=== PATIENT | male | born 1995 | race Caucasian/White ===

== ENCOUNTER → 2016-12-12 | Outpatient (CLI) | payer MEDICAID ==
[~2016-12-12] MED LIST: /MOXI40TA PO; ALBU17IN INH; AVEL1TAB PO; CLAR1TAB2 PEG; FLAG500T PO; FLUTISP; MUPI2OI EXT; TYLE325T5 PO; VENTAER INH; cipro PO; flagyl PO; synthroid OR
[2016-12-12 10:54] LABS: ALBUMIN 3.3 GM/DL (3.2-5.2); ALBUMIN/GLOBULIN RATIO 1.18 (1.00-1.93); ALKALINE PHOSPHATASE 89 U/L (45-117); ALT/SGPT 26 U/L (12-78); ANION GAP 8 MEQ/L (8-16); AST/SGOT 19 U/L (15-37); BILIRUBIN,TOTAL 0.5 MG/DL (0.2-1.0); BLOOD UREA NITROGEN 17 MG/DL (7-18); CALCIUM LEVEL 8.2 MG/DL (8.5-10.1); CARBON DIOXIDE LEVEL 27 MEQ/L (21-32); CHLORIDE LEVEL 107 MEQ/L (98-107); CREATININE FOR GFR 0.88 MG/DL (0.70-1.30); GLOMERULAR FILTRATION RATE > 60.0 (>60); GLUCOSE, FASTING 89 MG/DL (70-105); POTASSIUM SERUM 4.2 MEQ/L (3.5-5.1); SODIUM LEVEL 142 MEQ/L (136-145); TOTAL PROTEIN 6.1 GM/DL (6.4-8.2)
[2016-12-12 15:43] LABS: T UPTAKE 34 % (33-40); THYROXINE (T4) 11.7 UG/DL (4.5-12.0)
== END ==
LOC: M LAB 08:57
PROVIDERS: ATTEND Physician Assistant Medical
DX: E03.9 Hypothyroidism, unspecified (principal); E78.2 Mixed hyperlipidemia

== ENCOUNTER → 2017-02-12 | Outpatient (CLI) | payer MEDICAID ==
[2017-02-12 12:58] LABS: THYROXINE (T4) 14.6 UG/DL (4.5-12.0)
--- NOTE | 2017-02-13 05:25 | ECGEPIP ---
Stationary ECG Study [facility] Test Date: 2017-02-12 Pat Name: CHICA BENJAMIN Department: Room: - Gender: M Auto Parker: ISAC : 1995 Requested By: Bri Garnica Order Number: [id number] Reading MD: Walt Danielle Measurements Intervals [place] Rate: 85 P: 19 NM: 193 QRS: -61 QRSD: 132 T: 63 QT: 383 QTc: 458 Interpretive Statements Normal sinus rhythm with borderline first degree AV block Left anterior fascicular block and right bundle branch block Compared to prior tracing of 04/15/2014, heart rate is slower Electronically Signed On 02-13-2017 5:25:29 EDT by Walt Danielle
== END ==
LOC: M LAB 10:46
PROVIDERS: ATTEND Physician Assistant Medical
DX: E03.9 Hypothyroidism, unspecified (principal)

== ENCOUNTER → 2017-03-10 | Outpatient (CLI) | payer MEDICAID ==
[2017-03-10 11:36] LABS: THYROXINE (T4) 15.1 UG/DL (4.5-12.0)
[2017-03-11 08:13] LABS: T3 RESIN UPTAKE 31 % (24-39)
== END ==
LOC: M LAB 10:11
PROVIDERS: ATTEND Physician Assistant Medical
DX: E03.9 Hypothyroidism, unspecified (principal)

== ENCOUNTER → 2017-04-07 | Outpatient (CLI) | payer MEDICAID ==
[2017-04-07 13:39] LABS: FREE T4 1.17 NG/DL (0.76-1.46)
== END ==
LOC: M LAB 12:25
PROVIDERS: ATTEND Physician Assistant Medical
DX: E03.9 Hypothyroidism, unspecified (principal)

== ENCOUNTER → 2017-04-09 | Outpatient (CLI) | payer MEDICAID ==
[2017-04-09 10:37] LABS: BASO % 1.1 % (0.0-1.0); EOS % 1.1 % (0.0-3.0); LYMPH # 1.1 K/mm3 (1.5-6.5); LYMPH % 25.5 % (24.0-44.0); MEAN CORPUSCULAR HEMOGLOBIN 30.2 pg (27.0-33.0); MEAN CORPUSCULAR HGB CONC 34.1 g/dl (32.0-36.5); MEAN CORPUSCULAR VOLUME 88.7 fl (80.0-96.0); MONO # 0.3 K/mm3 (0.0-0.8); MONO % 6.5 % (0.0-5.0); NEUTROPHILS # 2.7 K/mm3 (1.8-7.7); NEUTROPHILS % 64.4 % (36.0-66.0); RED CELL DISTRIBUTION WIDTH 13.5 % (11.5-14.5); WHITE BLOOD COUNT 4.2 K/mm3 (4.0-10.0)
--- NOTE | 2017-04-09 10:52 | REP ---
Chest two views HISTORY: Chest pain Comparison: 04/15/2014 Minimal peribronchial cuffing is present. The heart is normal in size. The pulmonary vasculature is normal in appearance. The bony structure is intact. IMPRESSION: There is minimal peribronchial cuffing consistent with asthma or bronchitis. Signed by Benny Lund MD 04/09/2017 10:44 A
[2017-04-09 11:01] LABS: ALBUMIN 3.2 GM/DL (3.2-5.2); ALBUMIN/GLOBULIN RATIO 1.07 (1.00-1.93); ALKALINE PHOSPHATASE 93 U/L (45-117); ALT/SGPT 21 U/L (12-78); ANION GAP 6 MEQ/L (8-16); AST/SGOT 19 U/L (15-37); BILIRUBIN,TOTAL 0.5 MG/DL (0.2-1.0); BLOOD UREA NITROGEN 14 MG/DL (7-18); CALCIUM LEVEL 8.3 MG/DL (8.5-10.1); CARBON DIOXIDE LEVEL 27 MEQ/L (21-32); CHLORIDE LEVEL 109 MEQ/L (98-107); CHOLESTEROL LEVEL 223 MG/DL (<200); CREATININE FOR GFR 0.92 MG/DL (0.70-1.30); GLOMERULAR FILTRATION RATE > 60.0 (>60); GLUCOSE, FASTING 95 MG/DL (70-105); POTASSIUM SERUM 4.1 MEQ/L (3.5-5.1); SODIUM LEVEL 142 MEQ/L (136-145); TOTAL PROTEIN 6.2 GM/DL (6.4-8.2); TRIGLYCERIDES LEVEL 101 MG/DL (<150)
--- NOTE | 2017-04-10 14:30 | ECGEPIP ---
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
== END ==
LOC: M LAB 10:04
PROVIDERS: ATTEND Physician Assistant Medical
DX: I44.0 Atrioventricular block, first degree (principal); I45.2 Bifascicular block

== ENCOUNTER 2017-04-27 14:10 | Emergency (ER) | payer MEDICAID ==
[~2017-04-27] VITALS: Ht 144.8 cm; Wt 73.8 kg
[2017-04-27] MEDS ORDERED: ASPIRIN 81 MG CHEW TABLET PO ONE (14:45)
[2017-04-27 15:35] LABS: BASO # 0.1 K/mm3 (0.0-0.2); BASO % 1.4 % (0.0-1.0); EOS % 0.9 % (0.0-3.0); LARGE UNSTAINED CELL # 0.1 K/mm3 (0.0-0.4); LARGE UNSTAINED CELL % 1.4 % (0.0-4.0); LYMPH % 19.4 % (24.0-44.0); MEAN CORPUSCULAR HGB CONC 34.2 g/dl (32.0-36.5); MEAN CORPUSCULAR VOLUME 87.6 fl (80.0-96.0); MONO # 0.4 K/mm3 (0.0-0.8); MONO % 7.2 % (0.0-5.0); NEUTROPHILS # 3.5 K/mm3 (1.8-7.7); NEUTROPHILS % 69.8 % (36.0-66.0); PLATELET COUNT, AUTOMATED 221 k/mm3 (150-450); RED CELL DISTRIBUTION WIDTH 13.8 % (11.5-14.5); WHITE BLOOD COUNT 4.9 K/mm3 (4.0-10.0)
[2017-04-27 16:03] LABS: ALBUMIN 3.2 GM/DL (3.2-5.2); ALBUMIN/GLOBULIN RATIO 0.97 (1.00-1.93); ALKALINE PHOSPHATASE 102 U/L (45-117); ALT/SGPT 20 U/L (12-78); ANION GAP 8 MEQ/L (8-16); AST/SGOT 18 U/L (15-37); BILIRUBIN,DIRECT < 0.1 MG/DL (0.0-0.2); BILIRUBIN,TOTAL 0.4 MG/DL (0.2-1.0); BLOOD UREA NITROGEN 14 MG/DL (7-18); CALCIUM LEVEL 8.3 MG/DL (8.5-10.1); CARBON DIOXIDE LEVEL 26 MEQ/L (21-32); CHLORIDE LEVEL 109 MEQ/L (98-107); CREATININE FOR GFR 1.01 MG/DL (0.70-1.30); GLOMERULAR FILTRATION RATE > 60.0 (>60); GLUCOSE, FASTING 85 MG/DL (70-105); POTASSIUM SERUM 4.1 MEQ/L (3.5-5.1); SODIUM LEVEL 143 MEQ/L (136-145); TOTAL PROTEIN 6.5 GM/DL (6.4-8.2)
[2017-04-27 16:57] VITALS: BP 137/80
[2017-05-09] MEDS ORDERED: PROA1AER INH (13:42)
[2017-05-09] MEDS ORDERED: LEVO137T2 PO (13:42)
== END 2017-04-27 19:16 | disposition home or self-care (01) ==
LOC: M ED 14:40
DX: R55 Syncope and collapse (principal); R07.9 Chest pain, unspecified; J45.909 Unspecified asthma, uncomplicated; E03.9 Hypothyroidism, unspecified; Q90.9 Down syndrome, unspecified; Z79.899 Other long term (current) drug therapy

== ENCOUNTER → 2017-05-09 | Outpatient (CLI) | payer MEDICAID ==
[~2017-05-09] MED LIST changes: +LEVO137T2 PO; +PROA1AER INH
== END ==
LOC: M LAB 11:55
PROVIDERS: ATTEND Physician Assistant Medical
DX: E03.9 Hypothyroidism, unspecified (principal)

== ENCOUNTER 2017-05-22 21:05 | Emergency (ER) | payer MEDICAID ==
[~2017-05-22] VITALS: Ht 160 cm; Wt 73.6 kg
[~2017-05-22 21:05] MED LIST changes: -AVEL1TAB PO; +AVEL1TAB3 PO; -PROA1AER INH; +PROAAER10 INH
[2017-05-22 21:25] VITALS: BP 140/72
[2017-05-22 21:57] LABS: BASO # 0.1 K/mm3 (0.0-0.2); BASO % 1.5 % (0.0-1.0); EOS % 0.5 % (0.0-3.0); LARGE UNSTAINED CELL # 0.1 K/mm3 (0.0-0.4); LARGE UNSTAINED CELL % 1.3 % (0.0-4.0); LYMPH # 1.3 K/mm3 (1.5-6.5); LYMPH % 17.8 % (24.0-44.0); MEAN CORPUSCULAR HEMOGLOBIN 29.6 pg (27.0-33.0); MEAN CORPUSCULAR HGB CONC 33.6 g/dl (32.0-36.5); MEAN CORPUSCULAR VOLUME 88.2 fl (80.0-96.0); MONO # 0.4 K/mm3 (0.0-0.8); MONO % 5.6 % (0.0-5.0); NEUTROPHILS # 5.4 K/mm3 (1.8-7.7); NEUTROPHILS % 73.2 % (36.0-66.0); PLATELET COUNT, AUTOMATED 259 k/mm3 (150-450); RED CELL DISTRIBUTION WIDTH 13.4 % (11.5-14.5); WHITE BLOOD COUNT 7.4 K/mm3 (4.0-10.0)
[2017-05-22] MEDS ORDERED: ALL10TAB27 PO (22:05)
[2017-05-22] MEDS ORDERED: ATOR1TAB21 PO (22:05)
[2017-05-22 22:09] LABS: INR 1.01
[2017-05-22 22:21] LABS: ANION GAP 5 MEQ/L (8-16); BLOOD UREA NITROGEN 15 MG/DL (7-18); CALCIUM LEVEL 8.5 MG/DL (8.5-10.1); CARBON DIOXIDE LEVEL 27 MEQ/L (21-32); CHLORIDE LEVEL 111 MEQ/L (98-107); GLOMERULAR FILTRATION RATE > 60.0 (>60); GLUCOSE, FASTING 115 MG/DL (70-105); POTASSIUM SERUM 3.8 MEQ/L (3.5-5.1); SODIUM LEVEL 143 MEQ/L (136-145)
[2017-05-22] MEDS ORDERED: ISOVUE-370 76% 100ML VIAL (Q9967) As Ordered ONE (22:38)
--- NOTE | 2017-05-22 23:20 | REPUSA ---
CT angiogram of the chest Clinical statement: Chest pain and shortness of breath. Technique: Multiple axial CT images were obtained from the thoracic inlet through the upper abdomen a fter a bolus administration of nonionic intravenous contrast. Coronal and sagittal reconstructions we re also obtained. Comparison: None. Findings: The pulmonary arteries are well-opacified with contrast, with no intraluminal filling defec ts to suggest embolism. The thoracic aorta is unremarkable. Thyroid gland is within normal limits. Th ere is no thoracic lymphadenopathy. There are no pericardial or pleural effusions. The lungs are erin r. Limited imaging of the upper abdomen is unremarkable. There are no suspicious osseous lesions. Impression: Unremarkable CT examination of the chest. No evidence of pulmonary embolism.
--- NOTE | 2017-05-23 07:57 | REP ---
Clinical: Chest pain . Comparison: 04/09/2017 . Technique: PA and lateral. Findings: The mediastinum and cardiac silhouette are normal. The lung vidales are clear and without acute consolidation, effusion, or pneumothorax. The skeletal structures are intact and normal. Impression: 1. No acute cardiopulmonary process. Signed by Juan J Resendiz MD 05/23/2017 07:49 A
--- NOTE | 2017-05-23 20:50 | ECGEPIP ---
Stationary ECG Study [facility] - ED Test Date: 2017-05-22 Pat Name: CHICA BENJAMIN Department: Room: - Gender: M Regional Truck Driver: abigail : 1995 Requested By: FRANKY DONNELLY Order Number: [id number] Reading MD: Juany Osborn Measurements Intervals [place] Rate: 99 P: 12 NC: 215 QRS: -53 QRSD: 145 T: 46 QT: 377 QTc: 484 Interpretive Statements SINUS RHYTHM WITH FIRST DEGREE AV BLOCK RIGHT BUNDLE BRANCH BLOCK LEFT ANTERIOR FASCICULAR BLOCK POSSIBLE LEFT VENTRICULAR HYPERTROPHY SIMILAR 04/27/17 Electronically Signed On 05-23-2017 20:50:21 EDT by Juany Osborn
== END 2017-05-23 00:13 | disposition home or self-care (01) ==
LOC: M ED 21:05 → EDBD 21:05 → M ED 05-23 00:13
DX: R07.89 Other chest pain (principal); R00.0 Tachycardia, unspecified; I45.10 Unspecified right bundle-branch block; I44.0 Atrioventricular block, first degree; I44.4 Left anterior fascicular block; J45.909 Unspecified asthma, uncomplicated; E03.9 Hypothyroidism, unspecified; Q90.9 Down syndrome, unspecified; Z79.899 Other long term (current) drug therapy
CPT/HCPCS: 71020; 71275; 80048; 82550; 82553; 85025; 85610; 85730; 93005; 99284; Q9967

== ENCOUNTER → 2017-05-28 | Day surgery (SDC) | payer MEDICAID ==
[~2017-05-28] VITALS: Ht 162.6 cm; Wt 73.0 kg
[~2017-05-28] MED LIST changes: +ALL10TAB27 PO; +ATOR1TAB21 PO; +LIDOCAINE 1% MDV 20ML VIAL As Ordered ONE; +LIDOCAINE 1% SDV INJ 30 ML VIAL As Ordered ONE; +LIDOCAINE 2% INJ 100 MG/5 ML SDV (FOR ANES.) As Ordered ONE; +LR 1,000 ML IV ONE; +MIDAZOLAM INJ 2 MG/2 ML VIAL (J2250) As Ordered ONE; +PROPOFOL 200 MG/20 ML VIAL As Ordered ONE; +VANCOMYCIN HCL 1,000 MG, VIAL MATE ADAPTER 1 EACH in D5W 250 ML IV ONE; +fentaNYL 100 MCG/2 ML INJECTION (J3010) As Ordered ONE
[2017-05-28 18:16] VITALS: BP 118/59
--- NOTE | 2017-05-29 07:38 | RO ---
DATE OF PROCEDURE: 05/28/2017 PREOPERATIVE DIAGNOSIS: Unexplained syncope. POSTOPERATIVE DIAGNOSIS: Unexplained syncope. FINDINGS: Unexplained syncope. PROCEDURE PERFORMED: Implantation of Medtronic LINQ implantable lead recorder. SURGEON: Josh Sauceda MD AUTISM MOTOR SPECIALIST: None. ANESTHESIA: Lidocaine 1% local/monitored anesthetic care. SPECIMENS: None. ESTIMATED BLOOD LOSS: Less than 3 mL. No blood products replaced. DRAINS: None. COMPLICATIONS: None. PROCEDURE DESCRIPTION: The patient was prepped and draped over the sternum and left anterior chest. Lidocaine 1% was used as a local anesthetic. An incision slightly less than 1 cm was made with 15 scalpel blade, approximately 1-inch lateral to the left parasternal border and roughly at the level of the patient's left nipple. The insertion tool with loop recorder guide portion was placed into the incision and advanced approximately parallel to the skin the subcutaneous fat layer. The insertion tool was rotated 180 degrees. It was placed in a direction going caudal- left lateral. After rotating the insertion tool 180 degrees, the loop recorder was advanced using the plunger to place it into the subcutaneous fat. The plunger was then removed and then insertion guide was removed leaving the loop recorder in place. Next, a single deep stitch was placed consisting of #2-0 Vicryl. The skin was then approximated using a #4-0 Biosyn suture placed subcutaneously with the free ends coming out at the level of the skin on both sides. This was used not for strength of the incision, but simply to approximate the incision line. Next, three layers of DERMABOND was applied. The free ends of the Biosyn suture were snipped at the level of the skin. The patient tolerated the procedure well without any immediate complications. The implantable loop recorder implanted was a Medtronic Reveal LINQ, model #LNQ11 with serial number [id number]. The initial R waves measured in the OR were 1.43 mV.
== END | disposition home or self-care (01) ==
LOC: M SDC 14:56
PROVIDERS: ATTEND Internal Medicine Cardiovascular Disease
DX: R55 Syncope and collapse (principal); Q90.9 Down syndrome, unspecified; I45.2 Bifascicular block; R94.31 Abnormal electrocardiogram [ECG] [EKG]; Q21.1 Atrial septal defect; R01.1 Cardiac murmur, unspecified; R07.2 Precordial pain; G47.33 Obstructive sleep apnea (adult) (pediatric); E03.9 Hypothyroidism, unspecified; J45.909 Unspecified asthma, uncomplicated; H91.8X3 Other specified hearing loss, bilateral; T88.59XD Other complications of anesthesia, subsequent encounter; R47.02 Dysphasia; R29.898 Other symptoms and signs involving the musculoskeletal system; R21 Rash and other nonspecific skin eruption; R06.83 Snoring; Z88.0 Allergy status to penicillin; Z88.1 Allergy status to other antibiotic agents; Z88.6 Allergy status to analgesic agent; Z88.8 Allergy status to other drugs, medicaments and biological substances; Z91.018 Allergy to other foods; Z79.899 Other long term (current) drug therapy; Z86.14 Personal history of Methicillin resistant Staphylococcus aureus infection
CPT/HCPCS: 33282; C1764; J2250; J3010; J3370

== ENCOUNTER 2017-07-11 22:57 | Emergency (ER) | payer MEDICAID ==
[~2017-07-11] VITALS: Ht 160 cm; Wt 67.3 kg
[~2017-07-11 22:57] MED LIST changes: -LIDOCAINE 1% MDV 20ML VIAL As Ordered ONE; -LIDOCAINE 1% SDV INJ 30 ML VIAL As Ordered ONE; -LIDOCAINE 2% INJ 100 MG/5 ML SDV (FOR ANES.) As Ordered ONE; -LR 1,000 ML IV ONE; -MIDAZOLAM INJ 2 MG/2 ML VIAL (J2250) As Ordered ONE; -PROPOFOL 200 MG/20 ML VIAL As Ordered ONE; -VANCOMYCIN HCL 1,000 MG, VIAL MATE ADAPTER 1 EACH in D5W 250 ML IV ONE; -fentaNYL 100 MCG/2 ML INJECTION (J3010) As Ordered ONE
[2017-07-11 23:21] VITALS: BP 143/63
[2017-07-11 23:50] LABS: BASO # 0.1 K/mm3 (0.0-0.2); BASO % 1.1 % (0.0-1.0); EOS % 0.7 % (0.0-3.0); LARGE UNSTAINED CELL # 0.1 K/mm3 (0.0-0.4); LARGE UNSTAINED CELL % 1.5 % (0.0-4.0); LYMPH # 1.4 K/mm3 (1.5-6.5); LYMPH % 26.3 % (24.0-44.0); MEAN CORPUSCULAR HEMOGLOBIN 29.2 pg (27.0-33.0); MEAN CORPUSCULAR HGB CONC 33.2 g/dl (32.0-36.5); MEAN CORPUSCULAR VOLUME 87.9 fl (80.0-96.0); MONO # 0.3 K/mm3 (0.0-0.8); MONO % 6.4 % (0.0-5.0); NEUTROPHILS # 3.2 K/mm3 (1.8-7.7); NEUTROPHILS % 63.9 % (36.0-66.0); PLATELET COUNT, AUTOMATED 354 k/mm3 (150-450); RED CELL DISTRIBUTION WIDTH 14.2 % (11.5-14.5); WHITE BLOOD COUNT 4.9 K/mm3 (4.0-10.0)
[2017-07-12 00:12] LABS: ALBUMIN 3.4 GM/DL (3.2-5.2); ALBUMIN/GLOBULIN RATIO 1.17 (1.00-1.93); ALKALINE PHOSPHATASE 96 U/L (45-117); ALT/SGPT 18 U/L (12-78); AMYLASE 41 U/L (25-115); ANION GAP 6 MEQ/L (8-16); AST/SGOT 15 U/L (15-37); BILIRUBIN,DIRECT 0.1 MG/DL (0.0-0.2); BILIRUBIN,TOTAL 0.4 MG/DL (0.2-1.0); BLOOD UREA NITROGEN 11 MG/DL (7-18); CALCIUM LEVEL 8.1 MG/DL (8.5-10.1); CARBON DIOXIDE LEVEL 26 MEQ/L (21-32); CHLORIDE LEVEL 109 MEQ/L (98-107); CREATININE FOR GFR 0.94 MG/DL (0.70-1.30); GLOMERULAR FILTRATION RATE > 60.0 (>60); GLUCOSE, FASTING 101 MG/DL (70-105); POTASSIUM SERUM 4.1 MEQ/L (3.5-5.1); SODIUM LEVEL 141 MEQ/L (136-145); TOTAL PROTEIN 6.3 GM/DL (6.4-8.2)
[2017-07-12] MEDS ORDERED: LACTULOSE 20 GM/30 ML SYRUP UD PO ONE (01:15)
--- NOTE | 2017-07-12 08:13 | REP ---
ABDOMEN, FLAT AND UPRIGHT; PA CHEST, THREE VIEWS: HISTORY: Pain. A small amount of air is present in small and large intestine. There are no air fluid levels or dilated loops of intestine. There is no pneumoperitoneum. The lungs are clear. IMPRESSION: Nonspecific bowel gas pattern. Signed by Benny Lund MD 07/12/2017 08:23 A
== END 2017-07-12 01:17 | disposition home or self-care (01) ==
LOC: EDBD 22:57 → M ED 22:57
DX: K59.00 Constipation, unspecified (principal); R11.10 Vomiting, unspecified; R01.1 Cardiac murmur, unspecified; Q90.9 Down syndrome, unspecified; J45.909 Unspecified asthma, uncomplicated; E07.9 Disorder of thyroid, unspecified; Z95.0 Presence of cardiac pacemaker; Z88.8 Allergy status to other drugs, medicaments and biological substances; Z88.1 Allergy status to other antibiotic agents; Z88.0 Allergy status to penicillin; Z91.018 Allergy to other foods; Z79.899 Other long term (current) drug therapy

== ENCOUNTER → 2017-09-05 | Outpatient (CLI) | payer MEDICAID ==
[2017-09-05 11:11] LABS: BASO % 0.6 % (0.0-1.0); EOS # 0.1 10^3/uL (0.0-0.50); EOS % 0.7 % (0.0-3.0); IMMATURE GRANULOCYTE % 0.6 % (0-0); LYMPH # 1.5 10^3/uL (1.5-6.5); LYMPH % 21.4 % (24.0-44.0); MEAN CORPUSCULAR HEMOGLOBIN 28.9 pg (27.0-33.0); MEAN CORPUSCULAR HGB CONC 33.2 g/dl (32.0-36.5); MONO # 0.6 10^3/uL (0.0-0.8); NEUTROPHILS # 4.8 10^3/uL (1.8-7.7); NEUTROPHILS % 68.7 % (36.0-66.0); PLATELET COUNT, AUTOMATED 319 10^3/uL (150-450); RED CELL DISTRIBUTION WIDTH 13.9 % (11.5-14.5)
[2017-09-05 11:33] LABS: ALBUMIN 3.4 GM/DL (3.2-5.2); ALBUMIN/GLOBULIN RATIO 1.06 (1.00-1.93); ALKALINE PHOSPHATASE 104 U/L (45-117); ALT/SGPT 19 U/L (12-78); ANION GAP 7 MEQ/L (8-16); AST/SGOT 16 U/L (15-37); BILIRUBIN,TOTAL 0.4 MG/DL (0.2-1.0); BLOOD UREA NITROGEN 19 MG/DL (7-18); CALCIUM LEVEL 8.2 MG/DL (8.5-10.1); CARBON DIOXIDE LEVEL 27 MEQ/L (21-32); CHLORIDE LEVEL 106 MEQ/L (98-107); CHOLESTEROL LEVEL 158 MG/DL (<200); CREATININE FOR GFR 0.78 MG/DL (0.70-1.30); GLOMERULAR FILTRATION RATE > 60.0 (>60); GLUCOSE, FASTING 97 MG/DL (70-105); POTASSIUM SERUM 4.3 MEQ/L (3.5-5.1); SODIUM LEVEL 140 MEQ/L (136-145); T UPTAKE 31 % (33-40); TOTAL PROTEIN 6.6 GM/DL (6.4-8.2); TRIGLYCERIDES LEVEL 89 MG/DL (<150)
== END ==
LOC: M LAB 09:55
PROVIDERS: ATTEND Physician Assistant Medical
DX: E03.9 Hypothyroidism, unspecified (principal); E78.2 Mixed hyperlipidemia

== ENCOUNTER 2018-01-22 11:36 | Day surgery (SDC) | payer MEDICAID ==
[~2018-01-22 11:36] MED LIST changes: -/MOXI40TA PO; -ALBU17IN INH; -ALL10TAB27 PO; -ATOR1TAB21 PO; -AVEL1TAB3 PO; -CLAR1TAB2 PEG; -FLAG500T PO; -FLUTISP; -LEVO137T2 PO; +LIDOCAINE 2% INJ 100 MG/5 ML SDV (FOR ANES.) As Ordered; +MIDAZOLAM INJ 2 MG/2 ML VIAL (J2250) As Ordered; -MUPI2OI EXT; -PROAAER10 INH; +PROPOFOL 200 MG/20 ML VIAL As Ordered; +ROCURONIUM BROMIDE 50 MG/5 ML VIAL As Ordered; -TYLE325T5 PO; -VENTAER INH; -cipro PO; +fentaNYL 100 MCG/2 ML INJECTION (J3010) As Ordered; -flagyl PO; -synthroid OR
[2018-01-22] MEDS ORDERED: EMLA CREAM 5GM (LIDOCAINE/PRILOCAINE) As Ordered (11:50)
[2018-01-22] MEDS ORDERED: LIDOCAINE 1% MDV 20ML VIAL SQ (12:00)
[2018-01-22] MEDS: SODIUM CHLORIDE 0.9% 1000 ML IV (12:00)
[2018-01-22] MEDS: EMLA CREAM 5GM (LIDOCAINE/PRILOCAINE) TOP (12:52)
[2018-01-22] MEDS: LR 1,000 ML IV ×2 (12:52→20:15)
[2018-01-22] MEDS ORDERED: MIDAZOLAM INJ 2 MG/2 ML VIAL (J2250) As Ordered ×2 (14:15→15:49)
[2018-01-22] MEDS ORDERED: fentaNYL 100 MCG/2 ML INJECTION (J3010) As Ordered (14:17)
[2018-01-22] MEDS: VANCOMYCIN HCL 1,000 MG, VIAL MATE ADAPTER 1 EACH in D5W 250 ML IV (14:17)
[2018-01-22] MEDS: LIDOCAINE 1% SDV INJ 30 ML VIAL As Ordered ×2 (15:19→16:00)
[2018-01-22] MEDS: ISOVUE-300 61% 50ML VIAL (Q9967) As Ordered ×3 (15:29→18:09)
[2018-01-22] MEDS ORDERED: PROPOFOL 200 MG/20 ML VIAL As Ordered ×2 (15:33→15:35)
[2018-01-22] MEDS ORDERED: LIDOCAINE 2% INJ 100 MG/5 ML SDV (FOR ANES.) As Ordered (15:35)
[2018-01-22] MEDS: MUPIROCIN 2% OINT 22 GM TUBE As Ordered (18:40)
[2018-01-22] MEDS: VANCOMYCIN 1000 MG/20 ML VIAL (J3370) As Ordered (18:56)
[2018-01-22] MEDS ORDERED: NORCO, ANEXSIA 5/325MG TABLET (HYDROcodone/ACETAMINOPHEN) PO (20:15)
[2018-01-22] MEDS ORDERED: ONDANSETRON 4MG/2ML VIAL (J2405) IV (20:15)
[2018-01-22] MEDS ORDERED: ACETAMINOPHEN TAB 650MG DOSE (2X325MG) PO (20:15)
[2018-01-22] MEDS: ASCORBIC ACID 250 MG TAB PO (20:51)
[2018-01-22] MEDS ORDERED: SLF 3 ML SYR IV (21:30)
[2018-01-22] MEDS: SLF 3 ML SYR IV (22:00)
[2018-01-23] MEDS: LEVOTHYROXINE 137MCG TABLET (0.137MG) PO (06:32)
[2018-01-23] MEDS: SLF 3 ML SYR IV (06:33)
[2018-01-23] MEDS: ASCORBIC ACID 250 MG TAB PO (09:06)
[2018-01-23] MEDS: CETIRIZINE (ZyrTEC) 10 MG TAB PO (09:06)
[2018-01-23] MEDS ORDERED: ATORVASTATIN 20 MG TAB PO (21:00)
== END 2018-01-23 16:39 | disposition home or self-care (01) ==
LOC: M SDC 11:36 → M PCU 19:40
DX: I49.5 Sick sinus syndrome (principal); R55 Syncope and collapse; I45.2 Bifascicular block; Z87.74 Personal history of (corrected) congenital malformations of heart and circulatory system; G47.30 Sleep apnea, unspecified; Q90.9 Down syndrome, unspecified; R47.02 Dysphasia; R21 Rash and other nonspecific skin eruption; J45.909 Unspecified asthma, uncomplicated; E03.9 Hypothyroidism, unspecified; Z79.899 Other long term (current) drug therapy; Z88.1 Allergy status to other antibiotic agents; Z88.8 Allergy status to other drugs, medicaments and biological substances; Z88.0 Allergy status to penicillin; Z91.018 Allergy to other foods
CPT/HCPCS: 33284

== ENCOUNTER → 2018-02-04 | Outpatient (REF) | payer MEDICAID ==
[2018-02-04 18:38] LABS: BASO % 0.8 % (0.0-1.0); EOS # 0.1 10^3/uL (0.0-0.50); HEMATOCRIT 45.6 % (42.0-52.0); HEMOGLOBIN 15.1 g/dl (14.0-18.0); IMMATURE GRANULOCYTE % 0.6 % (0-3.0); LYMPH # 1.3 10^3/uL (1.5-6.5); LYMPH % 27.6 % (24.0-44.0); MEAN CORPUSCULAR HEMOGLOBIN 28.3 pg (27.0-33.0); MEAN CORPUSCULAR HGB CONC 33.1 g/dl (32.0-36.5); MEAN CORPUSCULAR VOLUME 85.6 fl (80.0-96.0); MONO # 0.4 10^3/uL (0.0-0.8); MONO % 8.9 % (0.0-5.0); NEUTROPHILS # 2.9 10^3/uL (1.8-7.7); NEUTROPHILS % 61.1 % (36.0-66.0); PLATELET COUNT, AUTOMATED 329 10^3/uL (150-450); RED BLOOD COUNT 5.33 10^6/uL (4.30-6.10); RED CELL DISTRIBUTION WIDTH 13.8 % (11.5-14.5); WHITE BLOOD COUNT 4.8 10^3/uL (4.0-10.0)
[2018-02-04 19:17] LABS: TOTAL 25(OH) VITAMIN D 39.3 NG/ML (30.0-100.0)
[2018-02-04 19:18] LABS: ALBUMIN 3.3 GM/DL (3.2-5.2); ALBUMIN/GLOBULIN RATIO 0.94 (1.00-1.93); ALKALINE PHOSPHATASE 117 U/L (45-117); ALT/SGPT 39 U/L (12-78); ANION GAP 8 MEQ/L (8-16); AST/SGOT 28 U/L (7-37); BILIRUBIN,TOTAL 0.5 MG/DL (0.2-1.0); BLOOD UREA NITROGEN 15 MG/DL (7-18); CALCIUM LEVEL 8.6 MG/DL (8.5-10.1); CARBON DIOXIDE LEVEL 28 MEQ/L (21-32); CHLORIDE LEVEL 104 MEQ/L (98-107); CHOLESTEROL LEVEL 197 MG/DL (<200); CHOLESTEROL RISK RATIO 4.282 (<5); CREATININE FOR GFR 0.83 MG/DL (0.70-1.30); FOLATE 9.2 NG/ML (>5.4); FREE T4 0.74 NG/DL (0.76-1.46); GLOMERULAR FILTRATION RATE > 60.0 (>60); GLUCOSE, FASTING 82 MG/DL (70-100); HDL CHOLESTEROL 46 MG/DL (>40); LDL CHOLESTEROL 124.2 MG/DL (<100); MAGNESIUM LEVEL 2.4 MG/DL (1.8-2.4); NON-HDL-C 151 MG/DL; POTASSIUM SERUM 4.3 MEQ/L (3.5-5.1); PTH INTACT 66.3 PG/ML (18.5-88.0); SODIUM LEVEL 140 MEQ/L (136-145); TOTAL PROTEIN 6.8 GM/DL (6.4-8.2); TRIGLYCERIDES LEVEL 134 MG/DL (<150); VITAMIN B12 LEVEL 375 PG/ML (247-911)
== END ==
LOC: M SFHCPLAZ 16:04
DX: R53.83 Other fatigue (principal); E66.9 Obesity, unspecified; E03.9 Hypothyroidism, unspecified; E78.5 Hyperlipidemia, unspecified; I08.0 Rheumatic disorders of both mitral and aortic valves; E55.9 Vitamin D deficiency, unspecified

== ENCOUNTER → 2018-03-10 | Outpatient (REF) | payer MEDICAID ==
[2018-03-10 14:06] LABS: FREE T4 1.29 NG/DL (0.76-1.46)
== END ==
LOC: M SFHCPLAZ 12:16
DX: E03.9 Hypothyroidism, unspecified (principal)

== ENCOUNTER 2018-03-12 11:02 | Emergency (ER) | payer MEDICAID | END 2018-03-12 16:45 | disposition home or self-care (01) | LOC: M ED 11:02 | DX: T44.7X1A Poisoning by beta-adrenoreceptor antagonists, accidental (unintentional), initial encounter (principal); X58.XXXA Exposure to other specified factors, initial encounter; Y92.89 Other specified places as the place of occurrence of the external cause; I45.19 Other right bundle-branch block; I50.9 Heart failure, unspecified; G51.0 Bell's palsy; E03.9 Hypothyroidism, unspecified; I47.1 Supraventricular tachycardia; F80.9 Developmental disorder of speech and language, unspecified; Q90.9 Down syndrome, unspecified; Z79.899 Other long term (current) drug therapy; Z79.890 Hormone replacement therapy; Z88.0 Allergy status to penicillin; Z88.8 Allergy status to other drugs, medicaments and biological substances; Z91.018 Allergy to other foods | CPT/HCPCS: 93005 ==

== ENCOUNTER → 2018-07-13 | Outpatient (REF) | payer MEDICAID ==
[2018-07-13 13:24] LABS: BASO % 0.6 % (0.0-1.0); EOS % 0.2 % (0.0-3.0); HEMATOCRIT 43.3 % (42.0-52.0); HEMOGLOBIN 14.6 g/dl (13.5-17.5); IMMATURE GRANULOCYTE % 0.4 % (0-3.0); LYMPH # 1.1 10^3/uL (1.5-6.5); LYMPH % 21.7 % (24.0-44.0); MEAN CORPUSCULAR HGB CONC 33.7 g/dl (32.0-36.5); MEAN CORPUSCULAR VOLUME 86.1 fl (80.0-96.0); MONO # 0.5 10^3/uL (0.0-0.8); MONO % 9.9 % (0.0-5.0); NEUTROPHILS # 3.4 10^3/uL (1.8-7.7); NEUTROPHILS % 67.2 % (36.0-66.0); PLATELET COUNT, AUTOMATED 266 10^3/uL (150-450); RED BLOOD COUNT 5.03 10^6/uL (4.30-6.10); WHITE BLOOD COUNT 5.1 10^3/uL (4.0-10.0)
[2018-07-13 13:51] LABS: PTH INTACT 57.1 PG/ML (18.5-88.0); TOTAL 25(OH) VITAMIN D 42.4 NG/ML (30.0-100.0)
[2018-07-13 13:56] LABS: ALBUMIN 3.4 GM/DL (3.2-5.2); ALKALINE PHOSPHATASE 105 U/L (45-117); ALT/SGPT 16 U/L (12-78); ANION GAP 11 MEQ/L (8-16); AST/SGOT 18 U/L (7-37); BILIRUBIN,TOTAL 0.3 MG/DL (0.2-1.0); BLOOD UREA NITROGEN 15 MG/DL (7-18); CALCIUM LEVEL 8.5 MG/DL (8.5-10.1); CARBON DIOXIDE LEVEL 23 MEQ/L (21-32); CHLORIDE LEVEL 110 MEQ/L (98-107); CHOLESTEROL LEVEL 190 MG/DL (<200); CHOLESTEROL RISK RATIO 4.222 (<5); CREATININE FOR GFR 0.74 MG/DL (0.70-1.30); GLOMERULAR FILTRATION RATE > 60.0 (>60); GLUCOSE, FASTING 86 MG/DL (70-100); HDL CHOLESTEROL 45 MG/DL (>40); LDL CHOLESTEROL 123.2 MG/DL (<100); NON-HDL-C 145 MG/DL; POTASSIUM SERUM 4.4 MEQ/L (3.5-5.1); SODIUM LEVEL 144 MEQ/L (136-145); TOTAL PROTEIN 6.5 GM/DL (6.4-8.2); TRIGLYCERIDES LEVEL 109 MG/DL (<150)
== END ==
LOC: M SFHCPLAZ 11:13
DX: E66.9 Obesity, unspecified (principal); E03.9 Hypothyroidism, unspecified; E78.5 Hyperlipidemia, unspecified; E55.9 Vitamin D deficiency, unspecified

== ENCOUNTER 2019-03-05 23:14 | Emergency (ER) | payer MEDICAID ==
[~2019-03-05] VITALS: Ht 144.8 cm; Wt 78.1 kg
[~2019-03-05 23:14] MED LIST changes: +ALBU17IN INH; +ALL10TAB28 PO; +ATOR1TAB21 PO; +AVEL1TAB2 PO; +AVEL1TAB3 PO; +CLAR1TAB2 PEG; +FLAG500T PO; +FLUT1SPR2; +LEVO137T2 PO; -LIDOCAINE 2% INJ 100 MG/5 ML SDV (FOR ANES.) As Ordered; +METO1TAB7 PO; -MIDAZOLAM INJ 2 MG/2 ML VIAL (J2250) As Ordered; +MUPI1OIN2 EXT; +POLY33503 PO; +PROAAER10 INH; -PROPOFOL 200 MG/20 ML VIAL As Ordered; -ROCURONIUM BROMIDE 50 MG/5 ML VIAL As Ordered; +TYLE325T5 PO; +VENTAER INH; +VITA1TAB23 PO; +cipro PO; -fentaNYL 100 MCG/2 ML INJECTION (J3010) As Ordered; +flagyl PO; +synthroid OR
[2019-03-05] MEDS ORDERED: VITA500045 (23:31)
[2019-03-06 00:37] LABS: INFLUENZA A AMPLIFICATION NEGATIVE (NEGATIVE); INFLUENZA B AMPLIFICATION NEGATIVE (NEGATIVE)
[2019-03-06] MEDS ORDERED: ONDANSETRON 4 MG ORAL DISINTEGRATING TAB (Q0162 PER 1MG) PO ONE (02:00)
[2019-03-06] MEDS ORDERED: LevoFLOXacin 750 MG TABLET PO ONE (02:00)
[2019-03-06] MEDS ORDERED: LEVA750T7 PO (02:02)
[2019-03-06 02:26] VITALS: BP 114/63
== END 2019-03-06 02:30 | disposition home or self-care (01) ==
LOC: M ED 23:14
DX: J20.9 Acute bronchitis, unspecified (principal); H66.92 Otitis media, unspecified, left ear; J45.909 Unspecified asthma, uncomplicated; Q90.9 Down syndrome, unspecified; G51.0 Bell's palsy; F80.9 Developmental disorder of speech and language, unspecified; K21.9 Gastro-esophageal reflux disease without esophagitis; I50.9 Heart failure, unspecified; E03.9 Hypothyroidism, unspecified; E78.5 Hyperlipidemia, unspecified; Z87.01 Personal history of pneumonia (recurrent); Z95.0 Presence of cardiac pacemaker; Z79.899 Other long term (current) drug therapy
CPT/HCPCS: 87502; 99283; Q0162

== ENCOUNTER → 2019-03-23 | Outpatient (CLI) | payer MEDICAID ==
[~2019-03-23] MED LIST changes: +LEVA750T7 PO; +VITA500045
[2019-03-23 12:08] LABS: BASO # 0.1 10^3/uL (0.0-0.2); BASO % 0.9 % (0.0-1.0); EOS # 0.1 10^3/uL (0.0-0.50); EOS % 1.4 % (0.0-3.0); HEMATOCRIT 46.5 % (42.0-52.0); HEMOGLOBIN 15.5 g/dl (13.5-17.5); LYMPH # 0.9 10^3/uL (1.5-6.5); LYMPH % 16.3 % (24.0-44.0); MEAN CORPUSCULAR HEMOGLOBIN 28.7 pg (27.0-33.0); MEAN CORPUSCULAR HGB CONC 33.3 g/dl (32.0-36.5); MEAN CORPUSCULAR VOLUME 86.1 fl (80.0-96.0); MONO # 0.5 10^3/uL (0.0-0.8); MONO % 7.8 % (0.0-5.0); NEUTROPHILS # 4.2 10^3/uL (1.8-7.7); NEUTROPHILS % 73.1 % (36.0-66.0); PLATELET COUNT, AUTOMATED 251 10^3/uL (150-450); WHITE BLOOD COUNT 5.8 10^3/uL (4.0-10.0)
[2019-03-23 12:42] LABS: ALBUMIN 3.4 GM/DL (3.2-5.2); ALT/SGPT 83 U/L (12-78); BILIRUBIN,TOTAL 0.5 MG/DL (0.2-1.0); BLOOD UREA NITROGEN 18 MG/DL (7-18); CALCIUM LEVEL 8.4 MG/DL (8.5-10.1); CARBON DIOXIDE LEVEL 27 MEQ/L (21-32); CHLORIDE LEVEL 107 MEQ/L (98-107); CHOLESTEROL LEVEL 237 MG/DL (<200); CHOLESTEROL RISK RATIO 5.042 (<5); CREATININE FOR GFR 0.94 MG/DL (0.70-1.30); FREE T4 0.94 NG/DL (0.76-1.46); GLOMERULAR FILTRATION RATE > 60.0 (>60); GLUCOSE, FASTING 161 MG/DL (70-100); HDL CHOLESTEROL 47 MG/DL (>40); LDL CHOLESTEROL 153 MG/DL (<100); NON-HDL-C 190 MG/DL; POTASSIUM SERUM 4.1 MEQ/L (3.5-5.1); SODIUM LEVEL 139 MEQ/L (136-145); TOTAL PROTEIN 6.4 GM/DL (6.4-8.2); TRIGLYCERIDES LEVEL 183 MG/DL (<150)
[2019-03-23 12:43] LABS: TOTAL 25(OH) VITAMIN D 39.6 NG/ML (30.0-100.0)
[2019-03-23 12:44] LABS: PTH INTACT 69.9 PG/ML (18.5-88.0)
== END ==
LOC: M LAB 11:04
PROVIDERS: ATTEND Nurse Practitioner Family
DX: E03.9 Hypothyroidism, unspecified (principal); E55.9 Vitamin D deficiency, unspecified; E78.5 Hyperlipidemia, unspecified

== ENCOUNTER → 2019-03-26 | Outpatient (REF) | payer MEDICAID ==
[2019-03-26 12:31] LABS: BASO # 0.1 10^3/uL (0.0-0.2); BASO % 0.8 % (0.0-1.0); EOS % 0.6 % (0.0-3.0); HEMATOCRIT 48.4 % (42.0-52.0); HEMOGLOBIN 15.8 g/dl (13.5-17.5); LYMPH # 1.1 10^3/uL (1.5-6.5); LYMPH % 17.7 % (24.0-44.0); MEAN CORPUSCULAR HEMOGLOBIN 28.7 pg (27.0-33.0); MEAN CORPUSCULAR HGB CONC 32.6 g/dl (32.0-36.5); MEAN CORPUSCULAR VOLUME 87.8 fl (80.0-96.0); MONO # 0.6 10^3/uL (0.0-0.8); MONO % 8.8 % (0.0-5.0); NEUTROPHILS # 4.5 10^3/uL (1.8-7.7); NEUTROPHILS % 71.8 % (36.0-66.0); PLATELET COUNT, AUTOMATED 238 10^3/uL (150-450); RED BLOOD COUNT 5.51 10^6/uL (4.30-6.10); WHITE BLOOD COUNT 6.3 10^3/uL (4.0-10.0)
[2019-03-26 12:40] LABS: ALBUMIN 3.2 GM/DL (3.2-5.2); ALT/SGPT 53 U/L (12-78); BILIRUBIN,TOTAL 0.7 MG/DL (0.2-1.0); BLOOD UREA NITROGEN 15 MG/DL (7-18); CALCIUM LEVEL 8.6 MG/DL (8.5-10.1); CARBON DIOXIDE LEVEL 29 MEQ/L (21-32); CHLORIDE LEVEL 106 MEQ/L (98-107); CHOLESTEROL LEVEL 225 MG/DL (<200); CHOLESTEROL RISK RATIO 5.487 (<5); CREATININE FOR GFR 0.95 MG/DL (0.70-1.30); FREE T4 1.03 NG/DL (0.76-1.46); GLOMERULAR FILTRATION RATE > 60.0 (>60); GLUCOSE, FASTING 100 MG/DL (70-100); HDL CHOLESTEROL 41 MG/DL (>40); LDL CHOLESTEROL 149 MG/DL (<100); NON-HDL-C 184 MG/DL; PTH INTACT 50.1 PG/ML (18.5-88.0); SODIUM LEVEL 141 MEQ/L (136-145); TOTAL 25(OH) VITAMIN D 31.5 NG/ML (30.0-100.0); TOTAL PROTEIN 6.9 GM/DL (6.4-8.2); TRIGLYCERIDES LEVEL 177 MG/DL (<150)
[2019-03-26 12:48] LABS: HEMOGLOBIN A1c 5.9 %
== END ==
LOC: M SFHCPLAZ 09:46
PROVIDERS: ATTEND Nurse Practitioner Family
DX: E03.9 Hypothyroidism, unspecified (principal); E78.5 Hyperlipidemia, unspecified; R73.01 Impaired fasting glucose; E55.9 Vitamin D deficiency, unspecified

== ENCOUNTER → 2019-04-22 | Outpatient (CLI) | payer MEDICAID ==
--- NOTE | 2019-04-22 08:43 | REP ---
RIGHT UPPER QUADRANT ULTRASOUND: Real-time sonographic evaluation of the right upper quadrant performed. The gallbladder demonstrates no evidence of intraluminal sludge or calculi, wall thickening or pericholecystic fluid. There is no intrahepatic or extrahepatic biliary dilatation, common bile duct measuring 2 mm. Liver and pancreas demonstrate no gross mass. Pancreas is not optimally seen due to overlying bowel gas. Right kidney demonstrates no hydronephrosis with normal size 9.7 cm in length. IMPRESSION: Essentially negative right upper quadrant ultrasound. Electronically Signed by Ricky Reyes MD 04/26/2019 01:40 P
== END ==
LOC: M RAD 05:32
PROVIDERS: ATTEND Nurse Practitioner Family
DX: R94.5 Abnormal results of liver function studies (principal)

== ENCOUNTER → 2019-08-04 | Outpatient (CLI) | payer MEDICAID ==
[~2019-08-04] MED LIST changes: -ALL10TAB28 PO; +ALL10TAB29 PO
--- NOTE | 2019-08-04 14:04 | REP ---
REASON: Knee pain. The lateral view is a cross-table lateral view. FINDINGS: The compartments are symmetric and relatively well maintained. There is no acute fracture or destructive osseous lesion. Electronically Signed by Mohinder Colin DO 08/04/2019 02:21 P
== END ==
LOC: M RAD 12:58
PROVIDERS: ATTEND Nurse Practitioner Family
DX: M25.562 Pain in left knee (principal)

== ENCOUNTER → 2019-08-09 | Outpatient (REF) | payer MEDICAID ==
[2019-08-09 11:53] LABS: CHOLESTEROL RISK RATIO 4.305 (<5); FREE T4 1.56 NG/DL (0.76-1.46); THYROID STIMULATING HORMONE 9.17 uIU/ML (0.358-3.740)
== END ==
LOC: M SFHCPLAZ 08:39
PROVIDERS: ATTEND Nurse Practitioner Family
DX: E03.9 Hypothyroidism, unspecified (principal); E78.5 Hyperlipidemia, unspecified

== ENCOUNTER 2019-12-27 19:40 | Inpatient (IN) | payer MEDICAID ==
[~2019-12-27] VITALS: Ht 149.9 cm; Wt 76.3 kg
[2019-12-27 20:51] LABS: INFLUENZA A AMPLIFICATION NEGATIVE (NEGATIVE); INFLUENZA B AMPLIFICATION POSITIVE (NEGATIVE)
[2019-12-27] MEDS ORDERED: NS 1,000 ML IV ONE (22:15)
[2019-12-27 22:39] LABS: BASO # 0.1 10^3/uL (0.0-0.2); BASO % 0.6 % (0.0-1.0); EOS # 0.1 10^3/uL (0.0-0.5); HEMATOCRIT 45.5 % (42.0-52.0); HEMOGLOBIN 14.4 g/dl (13.5-17.5); LYMPH # 1.1 10^3/uL (1.5-5.0); LYMPH % 11.8 % (24.0-44.0); MEAN CORPUSCULAR HEMOGLOBIN 27.4 pg (27.0-33.0); MEAN CORPUSCULAR HGB CONC 31.6 g/dl (32.0-36.5); MEAN CORPUSCULAR VOLUME 86.7 fl (80.0-96.0); MONO # 1.1 10^3/uL (0.0-0.8); MONO % 11.8 % (0.0-5.0); NEUTROPHILS # 6.6 10^3/uL (1.5-8.5); NEUTROPHILS % 73.5 % (36.0-66.0); PLATELET COUNT, AUTOMATED 315 10^3/uL (150-450); RED BLOOD COUNT 5.25 10^6/uL (4.30-6.10); WHITE BLOOD COUNT 8.9 10^3/uL (4.0-10.0)
[2019-12-27] MEDS ORDERED: CIPRODEX OTIC SUSP 7.5ML AS STA (23:22)
--- NOTE | 2019-12-27 23:23 | HPEPDOC ---
[facility] Medical History & Physical Date of Admission Dec 27, 2019 Date of Service: Dec 27, 2019 Primary Care Physician: WILLIAN DE LA FUENTE Attending Physician: KATIE ZIMMERMAN MD History and Physical TIME OF SERVICE: 11:51 PM CHIEF COMPLAINT: Congestion HISTORY OF PRESENT ILLNESS: This is a 24-year-old male with Down syndrome was not verbal, the majority of the history is obtained from the ER attending and the patient's parents who brought him in because he has had a cough, runny nose and congestion for 2 weeks. Yesterday, his cough got worse, he was eating less than usual and had shortness of breath that was worse while he was lying down. Today he developed brown colored discharge coming out of his left ear. 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 CAD Prior history of PEG tube placement. Status post tonsillectomy SOCIAL HISTORY: Does not smoke. He lives with his parents FAMILY HISTORY: Diabetes Asthma. SVT. Cotto's esophagus Pituitary tumor ALLERGIES: Please see below. HOME MEDICATIONS: Please see below. PHYSICAL EXAMINATION: VITAL SIGNS: Please see below. GEN: well-nourished / Down syndrome like facies INTEGUMENT: not flushed/ not jaundice /he has some abrasions on his forehead / he has a small, flat macule at his right upper chest HEENT: mucus membranes moist and pink / brown discharge draining from his left ear CVS: RRR/NMRG LUNGS: coughing occasionally/ he has expiratory rhonchi ABDOMEN: Contour (obese) MSK/EXTREMITIES: range of motion intact in all 4 extremities PSYCH: alert / is tracking my movements / smiles and says yes in response to all verbal communication LABORATORY DATA: See below. IMAGING: X-ray appears to have right-sided pneumonia and a dual-chamber pacemaker in place, but the final report is pending. MICROBIOLOGY: Please see below. ASSESSMENT: is a 24-year-old male with a history of Down syndrome with hypothyroidism & congenital heart disease, asthma, and hx of ear surgery who is admitted for management of post viral PNA and left sided otitis media. PLAN: 1. Postviral pneumonia. His urinary symptoms are likely due to postviral pneumonia. He is not hypoxic Since his had the symptoms for more than 2 weeks, tamiflu is not likely to be beneficial The chest x-ray was personally visualized. Plan: admit to medical floor / aspiration precautions/ elevate head of bed / continuous pulse ox / since we already know the source and he doesn't have SIRs I will not order sputm cx, step pneumo and legionella / f/u blood cx / c/w Ciprofloxacin / IVF / tessalon pearls / Acetaminophen PRN for fever / f/u final chest x-ray report 2. Mild Asthma Exacerbation 2/2 post viral PNA Plan: Dunebs Q4H / Prednisone w PPI to prevent steroid induced ulcer 3. Otitis media Plan: Per ENT Ciprofloxacin eardrops, we were unable to give Augmentin eardrops because of his penicillin allergy / follow-up with ENT in the morning 4. Hypothyroidism - Plan: Levothyroxine 5. Obesity (BMI 33.1) complicates care - Plan: f/u A1C DVT PROPHYLAXIS: Lovenox DISPOSITION: Home after more than 2 midnight's stay Vital Signs Vital Signs Date Time Temp Pulse Resp B/P (MAP) Pulse Ox O2 Delivery O2 Flow Rate FiO2 12/27/19 21:31 Room Air 12/27/19 21:31 12/27/19 19:40 98.3 92 18 97 Laboratory Data Labs 24H Laboratory Tests 2 12/27/19 19:56: Influenza Type A (RT-PCR) NEGATIVE, Influenza Type B (RT-PCR) POSITIVEH 12/27/19 22:12: Immature Granulocyte % (Auto) 1.3, Neutrophils (%) (Auto) 73.5H, Lymphocytes (%) (Auto) 11.8L, Monocytes (%) (Auto) 11.8H, Eosinophils (%) (Auto) 1.0, Basophils (%) (Auto) 0.6, Neutrophils # (Auto) 6.6, Lymphocytes # (Auto) 1.1L, Monocytes # (Auto) 1.1H, Eosinophils # (Auto) 0.1, Basophils # (Auto) 0.1, Nucleated Red Blood Cells % (auto) 0.0, Lactic Acid Level 1.2 12/27/19 22:37: POC Glucose (Misc Panel) 103, POC Sodium (Misc Panel) 137, POC Potassium (Misc Panel) 4.8, POC Chloride (Misc Panel) 101, POC Total CO2 (Misc Panel) 30.0H, POC Blood Urea Nitrogen (Misc Panel 15, POC Ionized Calcium (Misc Panel) 4.4L, POC Creatinine (Misc Panel) 0.7, POC Hematocrit (Misc Panel) 45.0 CBC/BMP Laboratory Tests 12/27/19 22:12 Microbiology Microbiology 12/27/19 Gram Stain, Received Pending 12/27/19 Wound Culture, Received Pending 12/27/19 Blood Culture, Received Pending Home Medications Scheduled Levothyroxine Sodium (Synthroid) 137 Mcg Tablet, 137 MCG PO DAILY Allergies Coded Allergies: Cephalosporins (Verified Allergy, Intermediate, HIVES, 12/27/19) Penicillins (Verified Allergy, Intermediate, HIVES, 12/27/19) ibuprofen (Verified Allergy, Intermediate, HIVES, 12/27/19) chocolate flavor (Verified Allergy, Mild, RASH, 12/27/19) diphenhydramine (Verified Allergy, Unknown, HIVES, 12/27/19) A-FIB/CHADSVASC A-FIB History Current/History of A-Fib/PAF?: No Current PO Anticoag Therapy: No KATIE ZIMMERMAN MD Dec 27, 2019 23:23
[2019-12-27] MEDS ORDERED: MAALOX 30 ML SUSP *UDC PO PRN (23:30)
[2019-12-27] MEDS ORDERED: MOM 30ML SUSPENSION UDC PO PRN (23:30)
[2019-12-27] MEDS ORDERED: ACETAMINOPHEN TAB 650MG DOSE (2X325MG) PO PRN (23:30)
[2019-12-27] MEDS ORDERED: SYNT137T7 PO (23:31)
[2019-12-27] MEDS: NS 1,000 ML IV SCH (23:45)
[2019-12-28] VITALS (7 sets, daily range): BP systolic 123–173; BP diastolic 72–92; O2SAT 90–95
[2019-12-28] MEDS ORDERED: CIPROFLOXACIN 400 MG in IV 1 EA IV SCH (02:00)
[2019-12-28] MEDS: NS 1,000 ML IV SCH ×2 (03:43→14:11)
[2019-12-28] MEDS: IPRATROPIUM 0.5MG/ALBUTEROL 2.5MG INH SOL UD 3ML (DUONEB)(J7620) INH SCH ×5 (03:56→20:00)
[2019-12-28 06:02] LABS: HEMATOCRIT 41.6 % (42.0-52.0); MEAN CORPUSCULAR HGB CONC 31.3 g/dl (32.0-36.5); MEAN CORPUSCULAR VOLUME 86.5 fl (80.0-96.0); PLATELET COUNT, AUTOMATED 290 10^3/uL (150-450); RED BLOOD COUNT 4.81 10^6/uL (4.30-6.10); WHITE BLOOD COUNT 7.4 10^3/uL (4.0-10.0)
[2019-12-28] MEDS: LEVOTHYROXINE 137MCG TABLET (0.137MG) PO SCH (06:12)
[2019-12-28 06:13] LABS: HEMOGLOBIN A1c 5.5 %
[2019-12-28 06:17] LABS: BLOOD UREA NITROGEN 9 MG/DL (7-18); CALCIUM LEVEL 7.8 MG/DL (8.5-10.1); CARBON DIOXIDE LEVEL 26 MEQ/L (21-32); CHLORIDE LEVEL 106 MEQ/L (98-107); CREATININE FOR GFR 0.62 MG/DL (0.70-1.30); GLOMERULAR FILTRATION RATE > 60.0 (>60); GLUCOSE, FASTING 94 MG/DL (70-100); MAGNESIUM LEVEL 2.2 MG/DL (1.8-2.4); POTASSIUM SERUM 3.5 MEQ/L (3.5-5.1); SODIUM LEVEL 139 MEQ/L (136-145)
--- NOTE | 2019-12-28 08:11 | REP ---
Clinical: cough. Comparison: 01/23/2018. Technique: PA and lateral. Findings: The mediastinum and cardiac silhouette are normal. The lung vidales demonstrate bilateral lower lobe infiltrates. No effusion. No pthx. Skeletal structures are intact. Impression: 1. Multifocal pneumonia Electronically Signed by Juan J Resendiz MD 12/28/2019 08:02 A
[2019-12-28] MEDS ORDERED: INFLUENZA QUADRIVALENT PF VACCINE 0.5ML SYRINGE (90686) IM ONE (09:00)
[2019-12-28] MEDS: PANTOPRAZOLE 40MG TAB (PROTONIX) PO SCH (09:53)
[2019-12-28] MEDS: ENOXAPARIN 40 MG/0.4 ML SYRINGE (J1650) SC SCH (09:54)
[2019-12-28] MEDS: DOCUSATE SODIUM 100 MG CAP PO SCH ×2 (09:54→20:06)
[2019-12-28] MEDS: predniSONE 20 MG TAB PO SCH (09:54)
[2019-12-28] MEDS: BENZONATATE 100 MG CAP PO SCH ×2 (09:54→20:06)
--- NOTE | 2019-12-28 10:39 | IPNPDOC ---
Subjective Date Seen The patient was seen on 12/28/19. Subjective Chief Complaint/HPI Pt mostly nonverbal, mom and sister at bedside. They have no concerns. General: Reports: ROS Unobtainable Objective Physical Examination General Exam: Positive: Alert, No Acute Distress ENT Exam: Positive: Mucous membr. moist/pink Neck Exam: Positive: Supple Chest Exam: Positive: Rhonchi; Negative: Clear to auscultation, Normal air movement Heart Exam: Positive: Rate Normal, Normal S1, Normal S2 Abdomen Exam: Positive: Normal bowel sounds, Soft; Negative: Tenderness Extremity Exam: Positive: Edema Neuro Exam: Positive: Normal Speech Psych Exam: Positive: Mood NL Assessment /Plan Problems (1) Influenzal bronchopneumonia Status: Acute Response to Treatment: Stable Discussed With: Nurse Problem Specific Plan: Monitor Clinically, Repeat Labs Problem Text: Pt has some hypoxia, O2 ordered with goal to maintain sats 88-92 %, seems to be tolerating NC well, started on IV Cipro, will address with attending, Consider using DOxy vs Cipro. afebrile, normal WBC. Cont with nebs. (2) Otitis externa of left ear Status: Acute Response to Treatment: Stable Problem Specific Plan: Monitor Clinically Problem Text: Dr Chester stopped to see the patient but felt he would be better examined in his office, will resume Cipro drops. (3) Down syndrome Status: Chronic Response to Treatment: Stable Plan/VTE VTE Prophylaxis Ordered?: Yes VS, I&O, 24H, Fishbone Vital Signs/I&O Vital Signs Date Time Temp Pulse Resp B/P (MAP) Pulse Ox O2 Delivery O2 Flow Rate FiO2 12/28/19 10:00 98.6 87 17 173/92 (119) 94 Nasal Cannula 2.0 I&O- Last 24 Hours up to 6 AM 12/28/19 06:00 Intake Total 1200 ml Balance 1200 ml Laboratory Data 24H LABS Laboratory Tests 2 12/27/19 19:56: Influenza Type A (RT-PCR) NEGATIVE, Influenza Type B (RT-PCR) POSITIVEH 12/27/19 22:12: Immature Granulocyte % (Auto) 1.3, Neutrophils (%) (Auto) 73.5H, Lymphocytes (%) (Auto) 11.8L, Monocytes (%) (Auto) 11.8H, Eosinophils (%) (Auto) 1.0, Basophils (%) (Auto) 0.6, Neutrophils # (Auto) 6.6, Lymphocytes # (Auto) 1.1L, Monocytes # (Auto) 1.1H, Eosinophils # (Auto) 0.1, Basophils # (Auto) 0.1, Nucleated Red Blood Cells % (auto) 0.0, Lactic Acid Level 1.2 12/27/19 22:37: POC Glucose (Misc Panel) 103, POC Sodium (Misc Panel) 137, POC Potassium (Misc Panel) 4.8, POC Chloride (Misc Panel) 101, POC Total CO2 (Misc Panel) 30.0H, POC Blood Urea Nitrogen (Misc Panel 15, POC Ionized Calcium (Misc Panel) 4.4L, POC Creatinine (Misc Panel) 0.7, POC Hematocrit (Misc Panel) 45.0 12/28/19 05:28: Nucleated Red Blood Cells % (auto) 0.0, Anion Gap 7L, Glomerular Filtration Rate > 60.0, Estimated Mean Plasma Glucose 111H, Hemoglobin A1c 5.5, Calcium Level 7.8L, Magnesium Level 2.2 CBC/BMP Laboratory Tests 12/27/19 22:12 12/28/19 05:28 Microbiology Microbiology 12/27/19 Gram Stain - Final, Resulted 12/27/19 Wound Culture, Resulted Pending 12/27/19 Blood Culture, Received Pending CATE DUENAS PA-C Dec 28, 2019 10:39
[2019-12-28] MEDS: CIPRODEX OTIC SUSP 7.5ML AS SCH ×2 (11:30→20:07)
[2019-12-28] MEDS: LevoFLOXacin IV 750 MG in IV 1 EA IV SCH (14:09)
[2019-12-29] MEDS: NS 1,000 ML IV SCH ×3 (01:20→22:53)
[2019-12-29 02:00] VITALS: BP 130/74
[2019-12-29] MEDS: IPRATROPIUM 0.5MG/ALBUTEROL 2.5MG INH SOL UD 3ML (DUONEB)(J7620) INH SCH ×7 (04:15→23:42)
[2019-12-29 05:53] LABS: HEMATOCRIT 37.8 % (42.0-52.0); HEMOGLOBIN 12.6 g/dl (13.5-17.5); MEAN CORPUSCULAR HEMOGLOBIN 28.5 pg (27.0-33.0); MEAN CORPUSCULAR HGB CONC 33.3 g/dl (32.0-36.5); MEAN CORPUSCULAR VOLUME 85.5 fl (80.0-96.0); PLATELET COUNT, AUTOMATED 302 10^3/uL (150-450); RED BLOOD COUNT 4.42 10^6/uL (4.30-6.10); WHITE BLOOD COUNT 8.8 10^3/uL (4.0-10.0)
[2019-12-29 06:00] VITALS: BP 144/80
[2019-12-29] MEDS: LEVOTHYROXINE 137MCG TABLET (0.137MG) PO SCH (06:02)
[2019-12-29 06:15] LABS: ALBUMIN 2.3 GM/DL (3.2-5.2); ALT/SGPT 8 U/L (12-78); BILIRUBIN,TOTAL 0.6 MG/DL (0.2-1.0); BLOOD UREA NITROGEN 10 MG/DL (7-18); CALCIUM LEVEL 8.1 MG/DL (8.5-10.1); CARBON DIOXIDE LEVEL 27 MEQ/L (21-32); CHLORIDE LEVEL 108 MEQ/L (98-107); CREATININE FOR GFR 0.69 MG/DL (0.70-1.30); GLOMERULAR FILTRATION RATE > 60.0 (>60); GLUCOSE, FASTING 120 MG/DL (70-100); POTASSIUM SERUM 3.6 MEQ/L (3.5-5.1); SODIUM LEVEL 140 MEQ/L (136-145); TOTAL PROTEIN 5.8 GM/DL (6.4-8.2)
[2019-12-29] MEDS: PANTOPRAZOLE 40MG TAB (PROTONIX) PO SCH (08:17)
[2019-12-29] MEDS: BENZONATATE 100 MG CAP PO SCH ×2 (08:17→21:29)
[2019-12-29] MEDS: CIPRODEX OTIC SUSP 7.5ML AS SCH ×2 (08:17→21:30)
[2019-12-29] MEDS: ENOXAPARIN 40 MG/0.4 ML SYRINGE (J1650) SC SCH (08:17)
[2019-12-29] MEDS: DOCUSATE SODIUM 100 MG CAP PO SCH ×2 (08:17→21:29)
[2019-12-29] MEDS: predniSONE 20 MG TAB PO SCH (08:17)
--- NOTE | 2019-12-29 09:53 | IPNPDOC ---
Subjective Date Seen The patient was seen on 12/29/19. Subjective Chief Complaint/HPI influenza, bronchopneumonia. Events since last encounter Planned eval with ENT today for drainage/wound in ear. General: Reports: ROS Unobtainable Objective Physical Examination General Exam: Positive: Alert, No Acute Distress ENT Exam: Positive: Mucous membr. moist/pink Neck Exam: Positive: Supple Chest Exam: Positive: Clear to auscultation; Negative: Normal air movement Heart Exam: Positive: Rate Normal, Normal S1, Normal S2 Abdomen Exam: Positive: Normal bowel sounds, Soft; Negative: Tenderness Extremity Exam: Positive: Edema Neuro Exam: Positive: Normal Speech Psych Exam: Positive: Mood NL Assessment /Plan Problems (1) Influenzal bronchopneumonia Status: Acute Response to Treatment: Stable, Improving Discussed With: Nurse Problem Specific Plan: Monitor Clinically, Repeat Labs Problem Text: Pt has some hypoxia, O2 ordered with goal to maintain sats 88-92 %, seems to be tolerating NC well, started on IV Cipro, will address with attending, Consider using DOxy vs Cipro. afebrile, normal WBC. Cont with nebs. (2) Otitis externa of left ear Status: Acute Response to Treatment: Stable Problem Specific Plan: Monitor Clinically Problem Text: Planned eval with Dr Chester in his office, will resume Cipro drops. (3) Down syndrome Status: Chronic Response to Treatment: Stable Plan/VTE VTE Prophylaxis Ordered?: Yes VS, I&O, 24H, Fishbone Vital Signs/I&O Vital Signs Date Time Temp Pulse Resp B/P (MAP) Pulse Ox O2 Delivery O2 Flow Rate FiO2 12/29/19 06:00 97.9 96 18 144/80 (101) 94 12/29/19 02:00 Nasal Cannula 2.0 I&O- Last 24 Hours up to 6 AM 12/29/19 06:00 Intake Total 4240 ml Output Total 1550 ml Balance 2690 ml Laboratory Data 24H LABS Laboratory Tests 2 12/29/19 05:26: Nucleated Red Blood Cells % (auto) 0.0, Anion Gap 5L, Glomerular Filtration Rate > 60.0, Calcium Level 8.1L, Total Bilirubin 0.6, Aspartate Amino Transf (AST/SGOT) 10, Alanine Aminotransferase (ALT/SGPT) 8L, Alkaline Phosphatase 92, Total Protein 5.8L, Albumin 2.3L, Albumin/Globulin Ratio 0.66L CBC/BMP Laboratory Tests 12/29/19 05:26 Microbiology Microbiology 12/27/19 Gram Stain - Final, Resulted 12/27/19 Wound Culture, Resulted Pending 12/27/19 Blood Culture - Preliminary, Resulted No growth after 24 hours . All specim... Izabel WheelerP Dec 29, 2019 09:53
[2019-12-29 10:00] VITALS: BP 145/80
[2019-12-29] MEDS: LevoFLOXacin IV 750 MG in IV 1 EA IV SCH (12:22)
[2019-12-29 14:00] VITALS: BP 151/80
[2019-12-29 18:00] VITALS: BP 149/80
[2019-12-29 22:00] VITALS: BP 144/74
[2019-12-30] VITALS (7 sets, daily range): BP systolic 119–144; BP diastolic 67–72; O2SAT 97–98
[2019-12-30] MEDS: IPRATROPIUM 0.5MG/ALBUTEROL 2.5MG INH SOL UD 3ML (DUONEB)(J7620) INH SCH ×6 (04:04→23:52)
[2019-12-30 06:18] LABS: HEMATOCRIT 38.1 % (42.0-52.0); HEMOGLOBIN 12.3 g/dl (13.5-17.5); MEAN CORPUSCULAR HEMOGLOBIN 28.1 pg (27.0-33.0); MEAN CORPUSCULAR HGB CONC 32.3 g/dl (32.0-36.5); MEAN CORPUSCULAR VOLUME 87.2 fl (80.0-96.0); PLATELET COUNT, AUTOMATED 318 10^3/uL (150-450); RED BLOOD COUNT 4.37 10^6/uL (4.30-6.10); WHITE BLOOD COUNT 9.9 10^3/uL (4.0-10.0)
[2019-12-30] MEDS: LEVOTHYROXINE 137MCG TABLET (0.137MG) PO SCH (06:27)
[2019-12-30 06:44] LABS: BLOOD UREA NITROGEN 11 MG/DL (7-18); CALCIUM LEVEL 8.3 MG/DL (8.5-10.1); CARBON DIOXIDE LEVEL 26 MEQ/L (21-32); CHLORIDE LEVEL 107 MEQ/L (98-107); CREATININE FOR GFR 0.74 MG/DL (0.70-1.30); GLOMERULAR FILTRATION RATE > 60.0 (>60); GLUCOSE, FASTING 94 MG/DL (70-100); POTASSIUM SERUM 3.7 MEQ/L (3.5-5.1); SODIUM LEVEL 141 MEQ/L (136-145)
[2019-12-30] MEDS: NS 1,000 ML IV SCH (09:06)
[2019-12-30] MEDS: predniSONE 20 MG TAB PO SCH (09:15)
[2019-12-30] MEDS: DOCUSATE SODIUM 100 MG CAP PO SCH ×2 (09:15→21:56)
[2019-12-30] MEDS: PANTOPRAZOLE 40MG TAB (PROTONIX) PO SCH (09:15)
[2019-12-30] MEDS: BENZONATATE 100 MG CAP PO SCH ×2 (09:15→21:56)
--- NOTE | 2019-12-30 09:15 | IPNPDOC ---
Subjective Date Seen The patient was seen on 12/30/19. Subjective Chief Complaint/HPI Pt this morning with his sister at bedside. He ate a good breakfast. General: Reports: ROS Unobtainable Objective Physical Examination General Exam: Positive: Alert, No Acute Distress (coloring when I entered the room, smiled and greeted me.) ENT Exam: Positive: Mucous membr. moist/pink Neck Exam: Positive: Supple Chest Exam: Positive: Clear to auscultation, Diminished; Negative: Normal air movement Heart Exam: Positive: Rate Normal, Normal S1, Normal S2, Murmurs Abdomen Exam: Positive: Normal bowel sounds, Soft; Negative: Tenderness Extremity Exam: Positive: Edema Neuro Exam: Positive: Normal Speech Psych Exam: Positive: Mood NL Assessment /Plan Problems (1) Influenzal bronchopneumonia Status: Acute Response to Treatment: Stable, Improving Discussed With: Nurse Problem Specific Plan: Monitor Clinically, Repeat Labs Problem Text: 12/30 O2 has been weaned back to 1L, he was 93% when I was with him, will work to cont to wean sats with goal of above 92%, Change IV Levaquin to PO, DC IVF. 12/29 Pt has some hypoxia, O2 ordered with goal to maintain sats 88-92 %, seems to be tolerating NC well, started on IV Cipro, will address with attending, Consider using DOxy vs Cipro. afebrile, normal WBC. Cont with nebs. (2) Otitis externa of left ear Status: Acute Response to Treatment: Stable Problem Specific Plan: Monitor Clinically Problem Text: 12/30 Culture + E Coli, Cont with Cipro 12/[address] Chester in his office, will resume Cipro drops. (3) Down syndrome Status: Chronic Response to Treatment: Stable Plan/VTE VTE Prophylaxis Ordered?: Yes VS, I&O, 24H, Fishbone Vital Signs/I&O Vital Signs Date Time Temp Pulse Resp B/P (MAP) Pulse Ox O2 Delivery O2 Flow Rate FiO2 12/30/19 06:00 98.1 61 16 133/67 (89) 95 Nasal Cannula 1.0 I&O- Last 24 Hours up to 6 AM 12/30/19 06:00 Intake Total 4220 ml Output Total 0 ml Balance 4220 ml Laboratory Data 24H LABS Laboratory Tests 2 12/30/19 05:41: Nucleated Red Blood Cells % (auto) 0.0, Anion Gap 8, Glomerular Filtration Rate > 60.0, Calcium Level 8.3L CBC/BMP Laboratory Tests 12/30/19 05:41 Microbiology Microbiology 12/27/19 Gram Stain - Final, Complete 12/27/19 Wound Culture - Final, Complete Escherichia Coli 12/27/19 Blood Culture - Preliminary, Resulted No Growth after 48 hours. All Specime... CATE DUENAS PA-C Dec 30, 2019 09:15
[2019-12-30] MEDS: ENOXAPARIN 40 MG/0.4 ML SYRINGE (J1650) SC SCH (09:16)
[2019-12-30] MEDS: CIPRODEX OTIC SUSP 7.5ML AS SCH ×2 (09:16→21:56)
[2019-12-30] MEDS: LevoFLOXacin 750 MG TABLET PO SCH (09:51)
[2019-12-31 02:00] VITALS: BP 137/81
[2019-12-31 02:46] VITALS: O2SAT 96
[2019-12-31] MEDS: IPRATROPIUM 0.5MG/ALBUTEROL 2.5MG INH SOL UD 3ML (DUONEB)(J7620) INH SCH ×4 (03:53→15:26)
[2019-12-31] MEDS: LEVOTHYROXINE 137MCG TABLET (0.137MG) PO SCH (05:58)
[2019-12-31] MEDS: LevoFLOXacin 750 MG TABLET PO SCH (05:58)
[2019-12-31 06:00] VITALS: BP 132/86
[2019-12-31 06:08] LABS: HEMATOCRIT 39.7 % (42.0-52.0); HEMOGLOBIN 13.1 g/dl (13.5-17.5); MEAN CORPUSCULAR HEMOGLOBIN 28.5 pg (27.0-33.0); MEAN CORPUSCULAR VOLUME 86.3 fl (80.0-96.0); PLATELET COUNT, AUTOMATED 379 10^3/uL (150-450); WHITE BLOOD COUNT 11.4 10^3/uL (4.0-10.0)
[2019-12-31 06:30] LABS: BLOOD UREA NITROGEN 14 MG/DL (7-18); CALCIUM LEVEL 8.1 MG/DL (8.5-10.1); CARBON DIOXIDE LEVEL 30 MEQ/L (21-32); CHLORIDE LEVEL 106 MEQ/L (98-107); CREATININE FOR GFR 0.84 MG/DL (0.70-1.30); GLOMERULAR FILTRATION RATE > 60.0 (>60); GLUCOSE, FASTING 122 MG/DL (70-100); POTASSIUM SERUM 4.2 MEQ/L (3.5-5.1); SODIUM LEVEL 143 MEQ/L (136-145)
[2019-12-31] MEDS: PANTOPRAZOLE 40MG TAB (PROTONIX) PO SCH (08:41)
[2019-12-31] MEDS: DOCUSATE SODIUM 100 MG CAP PO SCH (08:41)
[2019-12-31] MEDS: BENZONATATE 100 MG CAP PO SCH (08:41)
[2019-12-31] MEDS: CIPRODEX OTIC SUSP 7.5ML AS SCH (08:42)
[2019-12-31] MEDS: ENOXAPARIN 40 MG/0.4 ML SYRINGE (J1650) SC SCH (08:42)
[2019-12-31] MEDS: predniSONE 20 MG TAB PO SCH (08:42)
[2019-12-31 09:00] VITALS: O2SAT 96
[2019-12-31 10:00] VITALS: BP 138/81
[2019-12-31] MEDS ORDERED: BENZ-18 PO (10:03)
[2019-12-31] MEDS ORDERED: PRED20TA PO (10:03)
[2019-12-31] MEDS ORDERED: CIPRODEX AS (10:03)
[2019-12-31] MEDS ORDERED: LEVA750T7 PO (10:03)
[2019-12-31] MEDS ORDERED: ACET1TAB55 PO (10:03)
[2019-12-31] MEDS ORDERED: DOCU100C16 PO (10:03)
[2019-12-31] MEDS ORDERED: PANT40TA3 PO (10:03)
[2019-12-31] MEDS ORDERED: INFLUENZA QUADRIVALENT PF VACCINE 0.5ML SYRINGE (90686) IM ONE (11:00)
[2019-12-31 14:00] VITALS: BP 133/80
--- NOTE | 2020-01-01 14:07 | DSES ---
DATE OF ADMISSION: 12/27/2019 DATE OF DISCHARGE: 12/31/2019 PRIMARY CARE PROVIDER (PCP): Cecily Canales. ATTENDING: Dr. Dawn. HISTORY: This is a 24-year-old male patient who follows with Cecily in the outpatient setting who presented to [facility] with cough, runny nose and congestion for two weeks with his family, where he resides at home. He had been eating less than usual, noted to be short of breath. Also had brown-colored drainage coming from his left ear. He was evaluated in the emergency room and felt to have likely a postviral pneumonia, as well as otitis media. During his hospitalization, he has remained medically stable. He was seen by Dr. Chester, who recommended outpatient followup for further evaluation. He was started on initially intravenous (IV) Cipro. This was changed to IV Levaquin and now on to oral Levaquin. His respiratory status did decline slightly, resulting in hypoxemia. He has been successfully weaned from oxygen, ambulating in the halls this morning, with an oxygen saturation of 98%. He is on a steroid taper, seems to be tolerating this well. His appetite has improved. His sister is at bedside this morning and feels as though he is ready to return home. She is eager to bring him back home. DISCHARGE DIAGNOSES: Include: 1. Influenza. 2. Bronchial pneumonia. 3. Otitis externa of the left ear. 4. Down syndrome. 5. Morbid obesity. DISCHARGE MEDICATIONS: Include - Levaquin 750 mg one tablet by mouth daily - acetaminophen 650 mg every 4 hours as needed for pain or fever - benzonatate 100 mg twice a day times 10 days - Ciprodex 4 drops into the left ear twice a day - Colace 100 mg twice a day - Protonix 40 mg daily - prednisone 40 mg daily times three days, then 30 mg daily times three days, then 20 mg daily times three days, then 10 mg daily times three days. - He will be continued on his levothyroxine home dose 137 mcg daily He should follow up with Dr. Chester. He will follow up with his PCP in one week. She should also ensure that he is seeing ENT. He received his flu vaccine during his hospitalization. His diet should be regular.
== END 2019-12-31 16:41 | disposition home or self-care (01) | DRG 139 ==
LOC: M ED 19:40 → M ED INP 23:23 → ENRESERV 12-28 00:06 → M MSPAV 12-28 00:46
PROVIDERS: ADMIT Internal Medicine; ATTEND Family Medicine
DX: J10.08 Influenza due to other identified influenza virus with other specified pneumonia (principal); J45.901 Unspecified asthma with (acute) exacerbation; Q90.9 Down syndrome, unspecified; E03.9 Hypothyroidism, unspecified; I25.10 Atherosclerotic heart disease of native coronary artery without angina pectoris; J18.0 Bronchopneumonia, unspecified organism; H66.3X2 Other chronic suppurative otitis media, left ear; Q24.9 Congenital malformation of heart, unspecified; E66.9 Obesity, unspecified; R09.02 Hypoxemia; Z68.33 Body mass index [BMI] 33.0-33.9, adult; Z79.899 Other long term (current) drug therapy; Z88.0 Allergy status to penicillin; Z88.1 Allergy status to other antibiotic agents; Z95.0 Presence of cardiac pacemaker; Z88.6 Allergy status to analgesic agent; Z88.8 Allergy status to other drugs, medicaments and biological substances; Z91.018 Allergy to other foods

== ENCOUNTER → 2019-12-29 | Outpatient (REF) | payer MEDICAID ==
[~2019-12-29] MED LIST changes: +ACET1TAB55 PO; +BENZ-18 PO; +CIPRODEX AS; +DOCU100C16 PO; +PANT40TA3 PO; +PRED20TA PO; +SYNT137T7 PO
== END ==
LOC: M LAB REF 15:25
PROVIDERS: ATTEND Otolaryngology
DX: H66.3X2 Other chronic suppurative otitis media, left ear (principal)

== ENCOUNTER → 2020-01-07 | Outpatient (REF) | payer MEDICAID ==
[2020-01-07 11:22] LABS: FREE T4 1.39 NG/DL (0.76-1.46); THYROID STIMULATING HORMONE 9.32 uIU/ML (0.358-3.740)
== END ==
LOC: M SFHCPLAZ 09:00
PROVIDERS: ATTEND Nurse Practitioner Family
DX: E03.9 Hypothyroidism, unspecified (principal)

== ENCOUNTER → 2020-04-13 | Outpatient (REF) | payer MEDICAID | LOC: M LAB 19:14 | PROVIDERS: ATTEND Nurse Practitioner Family | DX: E03.9 Hypothyroidism, unspecified (principal) ==

== ENCOUNTER → 2020-08-09 | Outpatient (REF) | payer MEDICAID ==
[~2020-08-09] MED LIST changes: -ALL10TAB29 PO; +ASCO250T20 PO; +CETI-24 PO; +PANT40TA29 PO; -PANT40TA3 PO; -VITA1TAB23 PO
[2020-08-09 17:34] LABS: H PYLORI QUALITATIVE IgG NEGATIVE (NEGATIVE)
== END ==
LOC: M LAB REF 16:30
PROVIDERS: ATTEND Physician Assistant
DX: R10.9 Unspecified abdominal pain (principal)

== ENCOUNTER → 2020-09-20 | Outpatient (REF) | payer MEDICAID ==
[2020-09-20 17:55] LABS: BASO % 0.8 % (0.0-1.0); EOS % 0.4 % (0.0-3.0); HEMATOCRIT 45.6 % (42.0-52.0); HEMOGLOBIN 14.7 g/dl (13.5-17.5); LYMPH # 1.1 10^3/uL (1.5-5.0); LYMPH % 20.6 % (24.0-44.0); MEAN CORPUSCULAR HEMOGLOBIN 28.2 pg (27.0-33.0); MEAN CORPUSCULAR HGB CONC 32.2 g/dl (32.0-36.5); MEAN CORPUSCULAR VOLUME 87.4 fl (80.0-96.0); MONO # 0.5 10^3/uL (0.0-0.8); MONO % 9.1 % (0.0-5.0); NEUTROPHILS # 3.6 10^3/uL (1.5-8.5); NEUTROPHILS % 68.5 % (36.0-66.0); PLATELET COUNT, AUTOMATED 252 10^3/uL (150-450); RED BLOOD COUNT 5.22 10^6/uL (4.30-6.10); WHITE BLOOD COUNT 5.3 10^3/uL (4.0-10.0)
[2020-09-20 18:48] LABS: ALBUMIN 3.3 GM/DL (3.2-5.2); ALT/SGPT 22 U/L (12-78); BILIRUBIN,TOTAL 0.6 MG/DL (0.2-1.0); BLOOD UREA NITROGEN 11 MG/DL (7-18); CALCIUM LEVEL 8.9 MG/DL (8.5-10.1); CARBON DIOXIDE LEVEL 28 MEQ/L (21-32); CHLORIDE LEVEL 108 MEQ/L (98-107); CHOLESTEROL LEVEL 259 MG/DL (<200); CHOLESTEROL RISK RATIO 5.755 (<5); CREATININE FOR GFR 0.92 MG/DL (0.70-1.30); FREE T4 1.44 NG/DL (0.76-1.46); GLOMERULAR FILTRATION RATE > 60.0 (>60); GLUCOSE, FASTING 96 MG/DL (70-100); HDL CHOLESTEROL 45 MG/DL (>40); LDL CHOLESTEROL 182 MG/DL (<100); NON-HDL-C 214 MG/DL; POTASSIUM SERUM 4.3 MEQ/L (3.5-5.1); SODIUM LEVEL 140 MEQ/L (136-145); TOTAL 25(OH) VITAMIN D 21.4 NG/ML (30.0-100.0); TOTAL PROTEIN 6.6 GM/DL (6.4-8.2); TRIGLYCERIDES LEVEL 161 MG/DL (<150)
[2020-09-20 19:13] LABS: HEMOGLOBIN A1c 5.5 %
== END ==
LOC: M LAB REF 17:10
PROVIDERS: ATTEND Physician Assistant
DX: E03.9 Hypothyroidism, unspecified (principal); E55.9 Vitamin D deficiency, unspecified; Z13.220 Encounter for screening for lipoid disorders; Z13.228 Encounter for screening for other metabolic disorders

== ENCOUNTER 2020-10-30 21:19 | Emergency (ER) | payer MEDICAID ==
[2020-10-30] MEDS ORDERED: CLEO300C2 PO (21:53)
[2020-10-30] MEDS ORDERED: CLINDAMYCIN 150MG CAPSULE PO ONE (22:00)
[2020-10-30 22:10] VITALS: BP 111/61
== END 2020-10-30 22:22 | disposition home or self-care (01) ==
LOC: M ED 21:19
DX: R22.0 Localized swelling, mass and lump, head (principal); R51.9 Headache, unspecified; Q90.9 Down syndrome, unspecified; I25.10 Atherosclerotic heart disease of native coronary artery without angina pectoris; I10 Essential (primary) hypertension; J45.909 Unspecified asthma, uncomplicated; Z88.0 Allergy status to penicillin; Z88.1 Allergy status to other antibiotic agents; Z88.6 Allergy status to analgesic agent; Z88.8 Allergy status to other drugs, medicaments and biological substances; Z79.899 Other long term (current) drug therapy

== ENCOUNTER 2021-10-17 08:52 | Inpatient (IN) | payer MEDICAID ==
[~2021-10-17] VITALS: Ht 162.6 cm; Wt 84.0 kg
[~2021-10-17 08:52] MED LIST changes: +CIPR7.5D5 AS; -CIPRODEX AS; +CLEO300C2 PO
--- OUTSIDE RECORDS SUMMARY | 2021-10-17 09:04 | CCD ---
Author Author [facility] Address Unknown Phone Unavailable Support Name Relationship Address Phone Beatrice Boyer Next Of Kin [address] [place] [phone] Imelda Benjamin Next Of Kin Unknown Unavailable Victor Hugo PADRONPLynn Next Of Kin [address] [place] [id number] Brigid Amador DMD Next Of Kin [address] [place] [phone] Leslie DIE SET UP WORKER-C, Heidi Next Of Kin [address] [place], [place] [phone] Lam RPA-C, Bri Next Of Kin [address] [place] [phone] Leslie DIE SET UP WORKER-C DIE SET UP WORKER-C, Heidi Next Of Kin [address] [place] [phone] Neva Elias Next Of Kin [address] [place] [phone] Jm CHACON, Wu Mendoza Next Of Kin [address] [place] [phone] "" Next Of Kin [address] [place] [address] ST Next Of Kin Unknown Unavailable CHILD Next Of Kin Unknown Unavailable DISABLED Next Of Kin Unknown Unavailable UE Next Of Kin Unknown Unavailable SUMEET BENJAMIN Next Of Kin [address] [address] Wu BENJAMIN Next Of Kin [address] [place] [address] Sumeet Benjamin ECON [address] [place] [address] Unavailable Chu, Imelda[address] [address] Unavailable Care Team Providers Care Flight Inspector Name Role Phone Mila Piña MD Unavailable Unavailable Mila Piña MD Unavailable Unavailable iMla Piña MD Unavailable Unavailable Mila Piña MD Unavailable Unavailable Mila Piña MD Unavailable Unavailable Mila Piña MD Unavailable Unavailable Mila Piña MD Unavailable Unavailable Mila Piña MD Unavailable Unavailable Mila Piña MD Unavailable Unavailable Mila Piña MD Unavailable Unavailable Mila Piña MD Unavailable Unavailable Mila Piña MD Unavailable Unavailable Mila Piña MD Unavailable Unavailable Mila Piña MD Unavailable Unavailable Mila Piña MD Unavailable Unavailable Mila Piña MD Unavailable Unavailable Mila Piña MD Unavailable Unavailable Mila Piña MD Unavailable Unavailable Mila Piña MD Unavailable Unavailable Mila Piña MD Unavailable Unavailable Mila Piña MD Unavailable Unavailable Mila Piña MD Unavailable Unavailable Mila Piña MD Unavailable Unavailable Mila Piña MD Unavailable Unavailable Mila Piña MD Unavailable Unavailable Mila Piña MD Unavailable Unavailable Mila Piña MD Unavailable Unavailable Mila Piña MD Unavailable Unavailable Mila Piña MD Unavailable Unavailable Mila Piña MD Unavailable Unavailable Mila Piña MD Unavailable Unavailable Mila Piña MD Unavailable Unavailable Mila Piña MD Unavailable Unavailable Mila Piña MD Unavailable Unavailable Mila Piña MD Unavailable Unavailable Mila Piña MD Unavailable Unavailable Mila Piña MD Unavailable Unavailable Mila Piña MD Unavailable Unavailable Mila Piña MD Unavailable Unavailable Mila Piña MD Unavailable Unavailable Mila Piña MD Unavailable Unavailable Mila Piña MD Unavailable Unavailable Mila Piña MD Unavailable Unavailable Mila Piña MD Unavailable Unavailable Mila Piña MD Unavailable Unavailable Mila Piña MD Unavailable Unavailable Mila Piña MD Unavailable Unavailable Mila Pñia MD Unavailable Unavailable Mila Piña MD Unavailable Unavailable Mila Piña MD Unavailable Unavailable Mila Piña MD Unavailable Unavailable Mila Piña MD Unavailable Unavailable Mila Piña MD Unavailable Unavailable Mila Piña MD Unavailable Unavailable Mila Piña MD Unavailable Unavailable Mila Piña MD Unavailable Unavailable Mila Piña MD Unavailable Unavailable Mila Piña MD Unavailable Unavailable Mila Piña MD Unavailable Unavailable Mila Piña MD Unavailable Unavailable Mila Piña MD Unavailable Unavailable Mila Piña MD Unavailable Unavailable Mila Piña MD Unavailable Unavailable Mila Piña MD Unavailable Unavailable Mila Piña MD Unavailable Unavailable Mila Piña MD Unavailable Unavailable Mila Piña MD Unavailable Unavailable Mila Piña MD Unavailable Unavailable Mila Piña MD Unavailable Unavailable Mila Piña MD Unavailable Unavailable Mila Piña MD Unavailable Unavailable Mila Piña MD Unavailable Unavailable Mila Piña MD Unavailable Unavailable Mila Piña MD Unavailable Unavailable Mila Piña MD Unavailable Unavailable Mila Piña MD Unavailable Unavailable Mila Piña MD Unavailable Unavailable Mila Piña MD Unavailable Unavailable Mila Piña MD Unavailable Unavailable Mila Piña MD Unavailable Unavailable Mila Piña MD Unavailable Unavailable Mila Piña MD Unavailable Unavailable Mila Piña MD Unavailable Unavailable Mila Piña MD Unavailable Unavailable Mila Piña MD Unavailable Unavailable Mila Piña MD Unavailable Unavailable Mila Piña MD Unavailable Unavailable Mila Piña MD Unavailable Unavailable Mila Piña MD Unavailable Unavailable Mila Piña MD Unavailable Unavailable Mila Piña MD Unavailable Unavailable Mila Piña MD Unavailable Unavailable Mila Piña MD Unavailable Unavailable Scordo, M Shayna PA Unavailable Unavailable Scordo, M Shayna PA Unavailable Unavailable Scordo, M Shayna PA Unavailable Unavailable Scordo, M Shayna PA Unavailable Unavailable Scordo, M Shayna PA Unavailable Unavailable Scordo, M Shayna PA Unavailable Unavailable Scordo, M Shayna PA Unavailable Unavailable Scordo, M Shayna PA Unavailable Unavailable Scordo, M Shayna PA Unavailable Unavailable Scordo, M Shayna PA Unavailable Unavailable Scordo, M Shayna PA Unavailable Unavailable Scordo, M Shayna PA Unavailable Unavailable Scordo, M Shayna PA Unavailable Unavailable Scordo, M Shayna PA Unavailable Unavailable Scordo, M Shayna PA Unavailable Unavailable Scordo, M Shayna PA Unavailable Unavailable Scordo, M Shayna PA Unavailable Unavailable Scordo, M Shayna PA Unavailable Unavailable Scordo, M Shayna PA Unavailable Unavailable Scordo, M Shayna PA Unavailable Unavailable Scordo, M Shayna PA Unavailable Unavailable Scordo, M Shayna PA Unavailable Unavailable Scordo, M Shayna PA Unavailable Unavailable Scordo, M Shayna PA Unavailable Unavailable Scordo, M Shayna PA Unavailable Unavailable Scordo, M Shayna PA Unavailable Unavailable Scordo, M Shayna PA Unavailable Unavailable Scordo, M Shayna PA Unavailable Unavailable Scordo, M Shayna PA Unavailable Unavailable Scordo, M Shayna PA Unavailable Unavailable Scordo, M Shayna PA Unavailable Unavailable Scordo, M Shayna PA Unavailable Unavailable Scordo, M Shayna PA Unavailable Unavailable Scordo, M Shayna PA Unavailable Unavailable Scordo, M Shayna PA Unavailable Unavailable Scordo, M Shayna PA Unavailable Unavailable Scordo, M Shayna PA Unavailable Unavailable Scordo, M Shayna PA Unavailable Unavailable Scordo, M Shayna PA Unavailable Unavailable Scordo, M Shayna PA Unavailable Unavailable Scordo, M Shayna PA Unavailable Unavailable Scordo, M Shayna PA Unavailable Unavailable Scordo, M Shayna PA Unavailable Unavailable Scordo, M Shayna PA Unavailable Unavailable Scordo, M Shayna PA Unavailable Unavailable Scordo, M Shayna PA Unavailable Unavailable Scordo, M Shayna PA Unavailable Unavailable Re-disclosure Warning The records that you are about to access may contain information from federally-assisted alcohol or drug abuse programs. If such information is present, then the following federally mandated warning applies: This information has been disclosed to you from records protected by federal confidentiality rules (42 CFR part 2). The federal rules prohibit you from making any further disclosure of this information unless further disclosure is expressly permitted by the written consent of the person to whom it pertains or as otherwise permitted by 42 CFR part 2. A general authorization for the release of medical or other information is NOT sufficient for this purpose. The Federal rules restrict any use of the information to criminally investigate or prosecute any alcohol or drug abuse patient.The records that you are about to access may contain highly sensitive health information, the redisclosure of which is protected by Article 27-F of the [facility] Public Health law. If you continue you may have access to information: Regarding HIV / AIDS; Provided by facilities licensed or operated by the [facility] Office of Mental Health; or Provided by the [facility] Office for People With Developmental Disabilities. If such information is present, then the following [facility] mandated warning applies: This information has been disclosed to you from confidential records which are protected by state law. State law prohibits you from making any further disclosure of this information without the specific written consent of the person to whom it pertains, or as otherwise permitted by law. Any unauthorized further disclosure in violation of state law may result in a fine or mcc sentence or both. A general authorization for the release of medical or other information is NOT sufficient authorization for further disc losure. Family History Family Member Name Family Member Gender Family Member Status Date o f Status Description Data Source(s) Unknown Male Problem [facility] ([facility]) Encounters Encounter Providers Location Date Indications Data Source(s ) Shayna Lou PA-C: [address], [place] [address], Ph. Attender: Shayna GONZALEZ [facility] Medical 06/22/2021 12:00:00 AM EDT [facility] ([facility]) Jones Piña MD: [address], [place] [address], Ph. Attender: Jones Piña MD [facility] Medical 06/15/2021 12:00:00 AM EDT [facility] ([facility]) Jones Piña MD: [address] [place] [address], Ph. Attender: Jones Piña MD [facility] Medical 06/15/2021 12:00:00 AM EDT [facility]ELARDO ([facility]) Shayna Lou PA-C: [address], [place] [address], Ph. Attender: Shayna GONZALEZ [facility] Medical 05/04/2021 12:00:00 AM EDT [facility] ([facility]) Shayna Lou PA-C: [address], [place] [address], Ph. Attender: Shayna GONZALEZ [facility] Medical 05/04/2021 12:00:00 AM EDT [facility] ([facility]) Shayna Lou PA-C: [address], [place] [address], Ph. Attender: Shayna GONZALEZ [facility] Medical 05/04/2021 12:00:00 AM EDT [facility] ([facility]) Unknown [address] [facility] [address] 10/24/2020 12:00:00 AM EST [email or web address] (Critical access hospital) Outpatient FP 09/20/2020 12:22:00 PM EST [facility] Shayna Lou PA-C: [address], [place] [address], Ph. Attender: Shayna GONZALEZ [facility] Medical 09/20/2020 12:00:00 AM EST [facility]ARDO ([facility]) Shayna Lou PA-C: [address], [place] [address], Ph. Attender: Shayna GONZALEZ [facility] Medical 09/20/2020 12:00:00 AM EST [facility] ([facility]) Shayna Lou PA-C: [address], [place] [address], Ph. Attender: Shayna GONZALEZ [facility] Medical 09/20/2020 12:00:00 AM EST [facility]ARDO ([facility]) Shayna Lou PA-C: [address], [place] [address], Ph. Attender: Shayna GONZALEZ [facility] Medical 09/20/2020 12:00:00 AM EST [facility] ([facility]) Immunizations Vaccine Date Status Description Data Source(s) COVID-19 VACCINE Pfizer 10/04/2021 12:00:00 AM EST completed [facility] Vaccine Series Complete: NOThis Data was Submitted to [facility] Via [email or web address]. Tdap 06/22/2021 10:48:36 AM EDT completed 06/22/2021 0.5 mL [facility]DRESS ([facility]) New in 2011. IIV4 09/20/2020 02:11:00 PM EST completed .5 mL [facility]ELARDO ([facility]) New in 2011. IIV4 09/20/2020 02:11:00 PM EST completed .5 mL [facility]ARD[facility] ([facility]) New in 2011. IIV4 09/20/2020 02:11:00 PM EST completed .5 mL [facility]ARD[facility] ([facility]) Medications Medication Brand Name Start Date Product Form Dose Route Admi nistrative Instructions Pharmacy Instructions Status Indications Reaction Description Data Source(s) Clindamycin 300 MG Oral Capsule CLINDAMYCIN HCL 08/29/2021 12:00 :00 AM EDT capsule 28 TAKE ONE CAPSULE BY MOUTH EVERY 6 HOURS WITH FOOD UNTIL GONE TAKE ONE CAPSULE BY MOUTH EVERY 6 HOURS WITH FOOD UNTIL GONE SOLD: 08/29/2021 [facility] 137 mcg 05/05/2021 12:00:00 AM EDT tablet 90 TAKE ONE TABLET BY MOUTH EVERY DAY TAKE ONE TABLET BY MOUTH EVERY DAY SOLD: 08/19/2021 [facility] 137 mcg 05/05/2021 12:00:00 AM EDT tablet 90 TAKE ONE TABLET BY MOUTH EVERY DAY TAKE ONE TABLET BY MOUTH EVERY DAY SOLD: 05/07/2021 [facility] 50 mcg (2,000 unit) 05/05/2021 12:00:00 AM EDT capsule 30 TAKE ONE CAPSULE BY MOUTH ONCE DAILY TAKE ONE CAPSULE BY MOUTH ONCE DAILY SOLD: 05/07/2021 [facility] 50 mcg (2,000 unit) 05/05/2021 12:00:00 AM EDT capsule 30 TAKE ONE CAPSULE BY MOUTH ONCE DAILY TAKE ONE CAPSULE BY MOUTH ONCE DAILY SOLD: 06/16/2021 [facility] 300 mg 10/31/2020 12:00:00 AM EST capsule 30 TAKE ONE CAPSULE BY MOUTH THREE TIMES A DAY TAKE ONE CAPSULE BY MOUTH THREE TIMES A DAY SOLD: 10/31/2020 [facility] 137 mcg 10/30/2020 12:00:00 AM EST tablet 30 TAKE ONE TABLET BY MOUTH EVERY DAY TAKE ONE TABLET BY MOUTH EVERY DAY SOLD: 01/25/2021 [facility] 137 mcg 10/30/2020 12:00:00 AM EST tablet 30 TAKE ONE TABLET BY MOUTH EVERY DAY TAKE ONE TABLET BY MOUTH EVERY DAY SOLD: 03/14/2021 [facility] 137 mcg 10/30/2020 12:00:00 AM EST tablet 30 TAKE ONE TABLET BY MOUTH EVERY DAY TAKE ONE TABLET BY MOUTH EVERY DAY SOLD: 10/30/2020 [facility] 137 mcg 10/30/2020 12:00:00 AM EST tablet 30 TAKE ONE TABLET BY MOUTH EVERY DAY TAKE ONE TABLET BY MOUTH EVERY DAY SOLD: 12/13/2020 [facility] 137 mcg 04/27/2020 12:00:00 AM EDT tablet 30 TAKE ONE TABLET BY MOUTH EVERY DAY TAKE ONE TABLET BY MOUTH EVERY DAY SOLD: 09/12/2020 [facility] Levothyroxine Sodium 0.15 MG Oral Tablet levothyroxine 150 mcg tablet TAKE 1 TABLET BY MOUTH ON AN EMPTY STOMACH IN THE MORNING levothyroxine 150 mcg tablet TAKE 1 TABLET BY MOUTH ON AN EMPTY STOMACH IN THE MORNING completed levothyroxine sodium 0.15 MG Oral Tablet [facility]DRESS ([facility]) Levofloxacin 750 MG Oral Tablet levoflox acin 750 mg tablet TAKE ONE TABLET BY MOUTH EVERY DAY AT 0600 levofloxacin 750 mg tablet TAKE ONE TABL ET BY MOUTH EVERY DAY AT 0600 completed levo floxacin 750 MG Oral Tablet [facility]DRESS ([facility]) Mupirocin 0.02 MG/MG Topical Ointment mu pirocin 2 % topical ointment APPLY TO AFFECTED AREA S TOPICALLY THREE TIMES A DAY mupirocin 2 % topical ointment APPLY TO AFFECTED AREA S TOPICALLY THREE TIMES A DAY completed mupirocin 0.02 MG/MG Topical Ointment [facility]DRESS ([facility]) Prednisone 20 MG Oral Tablet prednisone 20 mg tablet TAKE TWO TABLETS BY MOUTH EVERY DAY FOR 3 DAYS THEN 1 AND 1/2 DAILY FOR 3 DAYS THEN TAKE ONE TABLET BY MOUTH EVERY DAY FOR 3 DAYS THEN TA prednisone 20 mg tablet TAKE TWO TABLETS BY MOUTH EVERY DAY FOR 3 DAYS THEN 1 AND 1/2 DAILY FOR 3 DAYS THEN TAKE ONE TABLET BY MOUTH EVERY DAY FOR 3 DAYS THEN TA completed prednisone 20 MG Oral Tablet [facility] ([facility]) Ciprofloxacin 3 MG/ML / Dexamethasone 1 MG/ML Otic Suspension [Ciprodex] Ciprodex 0.3 %-0.1 % ear drops,suspension INSTILL FOUR DROPS IN LEFT EAR TWICE A DAY Ciprodex 0.3 %-0.1 % ear drops,suspensio n INSTILL FOUR DROPS IN LEFT EAR TWICE A DAY completed ci profloxacin 3 MG/ML / dexamethasone 1 MG/ML Otic Suspension [Ciprodex] [facility]DRESS ([facility]) Mupirocin 0.02 MG/MG Topical Ointment mu pirocin 2 % topical ointment APPLY TO AFFECTED AREA S TOPICALLY THREE TIMES A DAY mupirocin 2 % topical ointment APPLY TO AFFECTED AREA S TOPICALLY THREE TIMES A DAY completed mupirocin 0.02 MG/MG Topical Ointment [facility]DRESS ([facility]) benzonatate 100 MG Oral Capsule benzonat ate 100 mg capsule TAKE ONE CAPSULE BY MOUTH TWICE A DAY benzonatate 100 mg capsule TAKE ONE CAPS ULE BY MOUTH TWICE A DAY completed benzonatate 100 MG Oral Capsule [facility]DRESS ([facility]) pantoprazole 40 MG Delayed Release Oral Tablet pantoprazole 40 mg tablet,delayed release TAKE ONE TABLET BY MOUTH EVERY DAY pantoprazole 40 mg tablet,delayed release TAKE ONE TABLET BY MOUTH EVERY DAY completed pantoprazole 40 MG Delayed Release Oral Tablet [facility]DRESS ([facility]) pantoprazole 40 MG Delayed Release Oral Tablet pantoprazole 40 mg tablet,delayed release TAKE ONE TABLET BY MOUTH EVERY DAY pantoprazole 40 mg tablet,delayed release TAKE ONE TABLET BY MOUTH EVERY DAY completed pantoprazole 40 MG Delayed Release Oral Tablet [facility]DRESS ([facility]) pantoprazole 40 MG Delayed Release Oral Tablet pantoprazole 40 mg tablet,delayed release TAKE ONE TABLET BY MOUTH EVERY DAY pantoprazole 40 mg tablet,delayed release TAKE ONE TABLET BY MOUTH EVERY DAY completed pantoprazole 40 MG Delayed Release Oral Tablet [facility]ESS ([facility]) Ciprofloxacin 3 MG/ML / Dexamethasone 1 MG/ML Otic Suspension [Ciprodex] Ciprodex 0.3 %-0.1 % ear drops,suspension INSTILL FOUR DROPS IN LEFT EAR TWICE A DAY Ciprodex 0.3 %-0.1 % ear drops,suspensio n INSTILL FOUR DROPS IN LEFT EAR TWICE A DAY completed ci profloxacin 3 MG/ML / dexamethasone 1 MG/ML Otic Suspension [Ciprodex] [facility]ILDRESS ([facility]) Clindamycin 300 MG Oral Capsule clindamy josé HCl 300 mg capsule TAKE ONE CAPSULE BY MOUTH THREE TIMES A DAY clindamycin HCl 300 mg capsule TAKE ONE CAPSULE BY MOUTH THREE TIMES A DAY completed clindamycin 300 MG Oral Capsule [facility]DRESS ([facility]) Clindamycin 300 MG Oral Capsule clindamy josé HCl 300 mg capsule TAKE ONE CAPSULE BY MOUTH THREE TIMES A DAY clindamycin HCl 300 mg capsule TAKE ONE CAPSULE BY MOUTH THREE TIMES A DAY completed clindamycin 300 MG Oral Capsule [facility]ARDO ([facility]) Acetaminophen 325 MG Oral Tablet acetami nophen 325 mg tablet TAKE TWO TABLETS BY MOUTH EVERY 4 HOURS NEEDED FOR PAIN OR FEVER acetaminophen 325 mg tablet TAKE TWO TABLETS BY MOUTH EVERY 4 HOURS NEEDED FOR PAIN OR FEVER completed acetaminophen 325 MG Oral Tablet [facility]ELARDO ([facility]) Docusate Sodium 100 MG Oral Capsule Stoo l Softener 100 mg capsule TAKE ONE CAPSULE BY MOUTH TWICE A DAY Stool Softener 100 mg capsule TAKE ONE C APSULE BY MOUTH TWICE A DAY completed docu sate sodium 100 MG Oral Capsule ABELARDO ([facility]) Acetaminophen 325 MG Oral Tablet acetami nophen 325 mg tablet TAKE TWO TABLETS BY MOUTH EVERY 4 HOURS NEEDED FOR PAIN OR FEVER acetaminophen 325 mg tablet TAKE TWO TABLETS BY MOUTH EVERY 4 HOURS NEEDED FOR PAIN OR FEVER completed acetaminophen 325 MG Oral Tablet [facility]ARDO ([facility]) Levofloxacin 750 MG Oral Tablet levoflox acin 750 mg tablet TAKE ONE TABLET BY MOUTH EVERY DAY AT 0600 levofloxacin 750 mg tablet TAKE ONE TABL ET BY MOUTH EVERY DAY AT 0600 completed levo floxacin 750 MG Oral Tablet [facility]ARDO ([facility]) Acetaminophen 325 MG Oral Tablet acetami nophen 325 mg tablet TAKE TWO TABLETS BY MOUTH EVERY 4 HOURS NEEDED FOR PAIN OR FEVER acetaminophen 325 mg tablet TAKE TWO TABLETS BY MOUTH EVERY 4 HOURS NEEDED FOR PAIN OR FEVER completed acetaminophen 325 MG Oral Tablet [facility]ARDO ([facility]) benzonatate 100 MG Oral Capsule benzonat ate 100 mg capsule TAKE ONE CAPSULE BY MOUTH TWICE A DAY benzonatate 100 mg capsule TAKE ONE CAPS ULE BY MOUTH TWICE A DAY completed benzonatate 100 MG Oral Capsule [facility]ARDO ([facility]) Prednisone 20 MG Oral Tablet prednisone 20 mg tablet TAKE TWO TABLETS BY MOUTH EVERY DAY FOR 3 DAYS THEN 1 AND 1/2 DAILY FOR 3 DAYS THEN TAKE ONE TABLET BY MOUTH EVERY DAY FOR 3 DAYS THEN TA prednisone 20 mg tablet TAKE TWO TABLETS BY MOUTH EVERY DAY FOR 3 DAYS THEN 1 AND 1/2 DAILY FOR 3 DAYS THEN TAKE ONE TABLET BY MOUTH EVERY DAY FOR 3 DAYS THEN TA completed prednisone 20 MG Oral Tablet ABELARDO ([facility]) Mupirocin 0.02 MG/MG Topical Ointment mu pirocin 2 % topical ointment APPLY TO AFFECTED AREA S TOPICALLY THREE TIMES A DAY mupirocin 2 % topical ointment APPLY TO AFFECTED AREA S TOPICALLY THREE TIMES A DAY completed mupirocin 0.02 MG/MG Topical Ointment CHILDRESS ([facility]) Levothyroxine Sodium 0.15 MG Oral Tablet levothyroxine 150 mcg tablet TAKE 1 TABLET BY MOUTH ON AN EMPTY STOMACH IN THE MORNING levothyroxine 150 mcg tablet TAKE 1 TABLET BY MOUTH ON AN EMPTY STOMACH IN THE MORNING completed levothyroxine sodium 0.15 MG Oral Tablet CH[facility]DRESS ([facility]) Docusate Sodium 100 MG Oral Capsule Stoo l Softener 100 mg capsule TAKE ONE CAPSULE BY MOUTH TWICE A DAY Stool Softener 100 mg capsule TAKE ONE C APSULE BY MOUTH TWICE A DAY completed docu sate sodium 100 MG Oral Capsule CHILDRESS ([facility]) pantoprazole 40 MG Delayed Release Oral Tablet pantoprazole 40 mg tablet,delayed release TAKE ONE TABLET BY MOUTH EVERY DAY pantoprazole 40 mg tablet,delayed release TAKE ONE TABLET BY MOUTH EVERY DAY completed pantoprazole 40 MG Delayed Release Oral Tablet [facility]DRESS ([facility]) Levothyroxine Sodium 0.15 MG Oral Tablet levothyroxine 150 mcg tablet TAKE 1 TABLET BY MOUTH ON AN EMPTY STOMACH IN THE MORNING levothyroxine 150 mcg tablet TAKE 1 TABLET BY MOUTH ON AN EMPTY STOMACH IN THE MORNING completed levothyroxine sodium 0.15 MG Oral Tablet [facility]DRESS ([facility]) Ciprofloxacin 3 MG/ML / Dexamethasone 1 MG/ML Otic Suspension [Ciprodex] Ciprodex 0.3 %-0.1 % ear drops,suspension INSTILL FOUR DROPS IN LEFT EAR TWICE A DAY Ciprodex 0.3 %-0.1 % ear drops,suspensio n INSTILL FOUR DROPS IN LEFT EAR TWICE A DAY completed ci profloxacin 3 MG/ML / dexamethasone 1 MG/ML [facility] Acet[facility] 325 MG Oral Tablet acetami nophen 325 mg tablet TAKE TWO TABLETS BY MOUTH EVERY 4 HOURS NEEDED FOR PAIN OR FEVER acetaminophen 325 mg tablet TAKE TWO TABLETS BY MOUTH EVERY 4 HOURS NEEDED FOR PAIN OR FEVER completed acetaminophen 325 MG Oral Tablet CH[facility]DRESS ([facility]) Levofloxacin 750 MG Oral Tablet levoflox acin 750 mg tablet TAKE ONE TABLET BY MOUTH EVERY DAY AT 0600 levofloxacin 750 mg tablet TAKE ONE TABL ET BY MOUTH EVERY DAY AT 0600 completed levo floxacin 750 MG Oral Tablet [facility]ARDO ([facility]) Levothyroxine Sodium 0.15 MG Oral Tablet levothyroxine 150 mcg tablet TAKE 1 TABLET BY MOUTH ON AN EMPTY STOMACH IN THE MORNING levothyroxine 150 mcg tablet TAKE 1 TABLET BY MOUTH ON AN EMPTY STOMACH IN THE MORNING completed levothyroxine sodium 0.15 MG Oral Tablet [facility]ELARDO ([facility]) benzonatate 100 MG Oral Capsule benzonat ate 100 mg capsule TAKE ONE CAPSULE BY MOUTH TWICE A DAY benzonatate 100 mg capsule TAKE ONE CAPS ULE BY MOUTH TWICE A DAY completed benzonatate 100 MG Oral Capsule [facility]ARDO ([facility]) Prednisone 20 MG Oral Tablet prednisone 20 mg tablet TAKE TWO TABLETS BY MOUTH EVERY DAY FOR 3 DAYS THEN 1 AND 1/2 DAILY FOR 3 DAYS THEN TAKE ONE TABLET BY MOUTH EVERY DAY FOR 3 DAYS THEN TA prednisone 20 mg tablet TAKE TWO TABLETS BY MOUTH EVERY DAY FOR 3 DAYS THEN 1 AND 1/2 DAILY FOR 3 DAYS THEN TAKE ONE TABLET BY MOUTH EVERY DAY FOR 3 DAYS THEN TA completed prednisone 20 MG Oral Tablet [facility]ARDO ([facility]) Docusate Sodium 100 MG Oral Capsule Stoo l Softener 100 mg capsule TAKE ONE CAPSULE BY MOUTH TWICE A DAY Stool Softener 100 mg capsule TAKE ONE C APSULE BY MOUTH TWICE A DAY completed docu sate sodium 100 MG Oral Capsule [facility]DRESS ([facility]) Prednisone 20 MG Oral Tablet prednisone 20 mg tablet TAKE TWO TABLETS BY MOUTH EVERY DAY FOR 3 DAYS THEN 1 AND 1/2 DAILY FOR 3 DAYS THEN TAKE ONE TABLET BY MOUTH EVERY DAY FOR 3 DAYS THEN TA prednisone 20 mg tablet TAKE TWO TABLETS BY MOUTH EVERY DAY FOR 3 DAYS THEN 1 AND 1/2 DAILY FOR 3 DAYS THEN TAKE ONE TABLET BY MOUTH EVERY DAY FOR 3 DAYS THEN TA completed prednisone 20 MG Oral Tablet ABELARDO ([facility]) Levofloxacin 750 MG Oral Tablet levoflox acin 750 mg tablet TAKE ONE TABLET BY MOUTH EVERY DAY AT 0600 levofloxacin 750 mg tablet TAKE ONE TABL ET BY MOUTH EVERY DAY AT 0600 completed levo floxacin 750 MG Oral Tablet CHILDRESS ([facility]) Docusate Sodium 100 MG Oral Capsule Stoo l Softener 100 mg capsule TAKE ONE CAPSULE BY MOUTH TWICE A DAY Stool Softener 100 mg capsule TAKE ONE C APSULE BY MOUTH TWICE A DAY completed docu sate sodium 100 MG Oral Capsule ABELARDO ([facility]) Clindamycin 300 MG Oral Capsule clindamy josé HCl 300 mg capsule TAKE ONE CAPSULE BY MOUTH THREE TIMES A DAY clindamycin HCl 300 mg capsule TAKE ONE CAPSULE BY MOUTH THREE TIMES A DAY completed clindamycin 300 MG Oral Capsule ABELARDO ([facility]) Mupirocin 0.02 MG/MG Topical Ointment mu pirocin 2 % topical ointment APPLY TO AFFECTED AREA S TOPICALLY THREE TIMES A DAY mupirocin 2 % topical ointment APPLY TO AFFECTED AREA S TOPICALLY THREE TIMES A DAY completed mupirocin 0.02 MG/MG Topical Ointment ABELARDO ([facility]) benzonatate 100 MG Oral Capsule benzonat ate 100 mg capsule TAKE ONE CAPSULE BY MOUTH TWICE A DAY benzonatate 100 mg capsule TAKE ONE CAPS ULE BY MOUTH TWICE A DAY completed benzonatate 100 MG Oral Capsule ABELARDO ([facility]) Ciprofloxacin 3 MG/ML / Dexamethasone 1 MG/ML Otic Suspension [Ciprodex] Ciprodex 0.3 %-0.1 % ear drops,suspension INSTILL FOUR DROPS IN LEFT EAR TWICE A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 gen ABELARDO ([facility]) glomerular filtration rate > 60.0 >60 Glomerula r Filtration Rate ABELARDO ([facility]) sodium level 140 mEq/L 136-145 Sodium Level ABELARDO ([facility]) creatinine for GFR 0.92 mg/dL 0.70-1.30 Creatinine for GF R ABELARDO ([facility]) carbon dioxide level 28 mEq/L 21-32 Carbon Dioxide Level ABELARDO ([facility]) chloride level 108 mEq/L 98-107 Above high normal Chloride Level ABELARDO ([facility]) potassium serum 4.3 mEq/L 3.5-5.1 Potassium Serum ATHE ([facility]) anion gap 4 mEq/L 8-16 Below low normal Anion Gap ABELARDO ( [facility]) AST/SGOT 18 U/L 7-37 AST/SGOT ABELARDO ([facility]) calcium level 8.9 mg/dL 8.5-10.1 Calcium Level ABELARDO ( [facility]) ALT/SGPT 22 U/L 12-78 ALT/SGPT ABELARDO ([facility]) total protein 6.6 gm/dL 6.4-8.2 Total Protein ABELARDO ( [facility]) alkaline phosphatase 98 U/L 45-117 Alkaline Phosph atase ABELARDO ([facility]) bilirubin,total 0.6 mg/dL 0.2-1.0 Bilirubin,total ATHE ([facility]) albumin/globulin ratio Albumin/globu sneha Ratio ABELARDO ([facility]) albumin 3.3 gm/dL 3.2-5.2 Albumin ABELARDO ([facility]) ID Date Data Source [id number] 09/20/2020 02:05:00 PM EST ABELARDO ([facility]) Name Value Range Interpretation Code Description Data Riddhi rce(s) Supporting Document(s) white blood count 5.3 10 4.0-10.0 White Blood Count ABELARDO ([facility]) red blood count 5.22 10 4.30-6.10 Red Blood Count ATHE NA ([facility]) hematocrit 45.6 % 42.0-52.0 Hematocrit ABELARDO ([facility]) mean corpuscular volume 87.4 fL 80.0-96.0 Mean Corpusc ular Volume ABELARDO ([facility]) hemoglobin 14.7 g/dL 13.5-17.5 Hemoglobin ABELARDO ([facility]) red cell distribution width 13.7 % 11.5-14.5 Red Cell Distribution Width ABELARDO ([facility]) mean corpuscular hemoglobin 28.2 pg 27.0-33.0 Mean Cor puscular Hemoglobin ABELARDO ([facility]) mean corpuscular HGB conc 32.2 g/dL 32.0-36.5 Mean Corpu scular HGB Conc ABELARDO ([facility]) platelet count, automated 252 10 150-450 Platelet C ount, Automated ABELARDO ([facility]) neutrophils % 68.5 % 36.0-66.0 Above high normal Neutrophils % A THENA ([facility]) lymph % 20.6 % 24.0-44.0 Below low normal Lymph % ABELARDO ( [facility]) eos % 0.4 % 0.0-3.0 Eos % ABELARDO ([facility]) mono % 9.1 % 0.0-5.0 Above high normal [place] % ABELARDO ([facility]) baso % 0.8 % 0.0-1.0 Baso % ABELARDO ([facility]) neutrophils # 3.6 10 1.5-8.5 Neutrophils # ABELARDO ( [facility]) nucleated red blood cell % 0.0 % 0-0 Nucleated Red Blood Cell % ABELARDO ([facility]) immature granulocyte % 0.6 % 0-3.0 Immature Gran ulocyte % ABELARDO ([facility]) lymph # 1.1 10 1.5-5.0 Below low normal Lymph # ABELARDO ( [facility]) mono # 0.5 10 0.0-0.8 [place] # ABELARDO ([facility]) baso # 0.0 10 0.0-0.2 Baso # ABELARDO ([facility]) eos # 0.0 10 0.0-0.5 Eos # ABELARDO ([facility]) ID Date Data Source [id number] 09/20/2020 02:05:00 PM EST ABELARDO ([facility]) Name Value Range Interpretation Code Description Data Riddhi rce(s) Supporting Document(s) Hemoglobin A1c/Hemoglobin.total in Blood 5.5 % Hemoglobin a1C CHILDRESS ([facility]) estimated average glucose 111 mg/dL 60-110 Above high norm al Estimated Average Glucose CHILDRESS ([facility]) ID Date Data Source [id number] 09/20/2020 02:05:00 PM EST ABELARDO ([facility]) Name Value Range Interpretation Code Description Data Riddhi rce(s) Supporting Document(s) total 25(oh) vitamin D 21.4 NG/mL 30.0-100.0 Below low normal T otal 25(Oh) Vitamin D CHILDRESS ([facility]) ID Date Data Source [id number] 09/20/2020 02:05:00 PM EST ABELARDO ([facility]) Name Value Range Interpretation Code Description Data Riddhi rce(s) Supporting Document(s) thyroid stimulating hormone 7.020 uIU/mL 0.358-3.740 Above high no rmal Thyroid Stimulating Hormone ABELARDO ([facility]) free T4 1.44 NG/dL 0.76-1.46 Free T4 CHILDRESS ([facility]) ID Date Data Source [id number] 09/20/2020 02:05:00 PM EST ABELARDO ([facility]) Name Value Range Interpretation Code Description Data Riddhi rce(s) Supporting Document(s) triglycerides level 161 mg/dL <150 Above high normal Triglycer ides Level ABELARDO ([facility]) cholesterol level 259 mg/dL <200 Above high normal Cholesterol Level ABELARDO ([facility]) HDL cholesterol 45 mg/dL >40 HDL Cholesterol ATHE NA ([facility]) cholesterol risk ratio <5 Above high normal Choles terol Risk Ratio ABELARDO ([facility]) non-HDL-C 214 mg/dL Non-hdl-c ABELARDO ([facility]) Cholesterol in LDL [Mass/volume] in Serum or Plasma 182 mg/dL <100 Above high normal LDL Cholesterol ABELARDO ([facility]) ID Date Data Source [id number] 09/20/2020 02:05:00 PM EST ABELARDO ([facility]) Name Value Range Interpretation Code Description Data Riddhi rce(s) Supporting Document(s) blood urea nitrogen 11 mg/dL 7-18 Blood Urea Nitro gen ABELARDO ([facility]) glucose, fasting 96 mg/dL 70-100 Glucose, Fasting AT CHANELLE ([facility]) sodium level 140 mEq/L 136-145 Sodium Level ABELARDO ([facility]) creatinine for GFR 0.92 mg/dL 0.70-1.30 Creatinine for GF R ABELARDO ([facility]) glomerular filtration rate > 60.0 >60 Glomerula r Filtration Rate ABELARDO ([facility]) potassium serum 4.3 mEq/L 3.5-5.1 Potassium Serum ATHE NA ([facility]) chloride level 108 mEq/L 98-107 Above high normal Chloride Level ABELARDO ([facility]) AST/SGOT 18 U/L 7-37 AST/SGOT ABELARDO ([facility]) anion gap 4 mEq/L 8-16 Below low normal Anion Gap ABELARDO ( [facility]) carbon dioxide level 28 mEq/L 21-32 Carbon Dioxide Level ABELARDO ([facility]) calcium level 8.9 mg/dL 8.5-10.1 Calcium Level ABELARDO ( [facility]) total protein 6.6 gm/dL 6.4-8.2 Total Protein ABELARDO ( [facility]) ALT/SGPT 22 U/L 12-78 ALT/SGPT ABELARDO ([facility]) bilirubin,total 0.6 mg/dL 0.2-1.0 Bilirubin,total ATHE NA ([facility]) alkaline phosphatase 98 U/L 45-117 Alkaline Phosph atase ABELARDO ([facility]) albumin/globulin ratio Albumin/globu sneha Ratio ABELARDO ([facility]) albumin 3.3 gm/dL 3.2-5.2 Albumin ABELARDO ([facility]) ID Date Data Source [id number] 09/20/2020 02:05:00 PM EST ABELARDO ([facility]) Name Value Range Interpretation Code Description Data Riddhi rce(s) Supporting Document(s) white blood count 5.3 10 4.0-10.0 White Blood Count ABELARDO ([facility]) hemoglobin 14.7 g/dL 13.5-17.5 Hemoglobin ABELARDO ([facility]) red blood count 5.22 10 4.30-6.10 Red Blood Count ATHE ([facility]) hematocrit 45.6 % 42.0-52.0 Hematocrit ABELARDO ([facility]) mean corpuscular volume 87.4 fL 80.0-96.0 Mean Corpusc ular Volume ABELARDO ([facility]) mean corpuscular HGB conc 32.2 g/dL 32.0-36.5 Mean Corpu scular HGB Conc ABELARDO ([facility]) mean corpuscular hemoglobin 28.2 pg 27.0-33.0 Mean Cor puscular Hemoglobin ABELARDO ([facility]) platelet count, automated 252 10 150-450 Platelet C ount, Automated ABELARDO ([facility]) red cell distribution width 13.7 % 11.5-14.5 Red Cell Distribution Width ABELARDO ([facility]) neutrophils % 68.5 % 36.0-66.0 Above high normal Neutrophils % A THENA ([facility]) lymph % 20.6 % 24.0-44.0 Below low normal Lymph % ABELARDO ( [facility]) eos % 0.4 % 0.0-3.0 Eos % ABELARDO ([facility]) baso % 0.8 % 0.0-1.0 Baso % ABELARDO ([facility]) immature granulocyte % 0.6 % 0-3.0 Immature Gran ulocyte % ABELARDO ([facility]) mono % 9.1 % 0.0-5.0 Above high normal [place] % ABELARDO ([facility]) neutrophils # 3.6 10 1.5-8.5 Neutrophils # ABELARDO ( [facility]) nucleated red blood cell % 0.0 % 0-0 Nucleated Red Blood Cell % ABELARDO ([facility]) lymph # 1.1 10 1.5-5.0 Below low normal Lymph # ABELARDO ( [facility]) mono # 0.5 10 0.0-0.8 [place] # ABELARDO ([facility]) eos # 0.0 10 0.0-0.5 Eos # ABELARDO ([facility]) baso # 0.0 10 0.0-0.2 Baso # ABELARDO ([facility]) Procedure Social History No Information Vital Signs ID Date Data Source [id number] Name Value Range Interpretation Code Description Data Source(s) Diastolic blood pressure 84 mm[Hg] 84 mm[Hg] ABELARDO ([facility]) Body height 57.5 [in_i] 57.5 [in_i] ABELARDO ([facility]) Body mass index (BMI) [Ratio] 38.3 kg/m2 38.3 k g/m2 ABELARDO ([facility]) Systolic blood pressure 122 mm[Hg] 122 mm[Hg] A THENA ([facility]) Body weight 2880 [oz_av] 2880 [oz_av] ABELARDO ([facility]) Body height 57.5 [in_i] 57.5 [in_i] ABELARDO ([facility]) Body height 57.5 [in_i] 57.5 [in_i] ABELARDO ([facility]) Diastolic blood pressure 72 mm[Hg] 72 mm[Hg] ABELARDO ([facility]) Body height 57.5 [in_i] 57.5 [in_i] ABELARDO ([facility]) Body mass index (BMI) [Ratio] 37.7 kg/m2 37.7 k g/m2 ABELARDO ([facility]) Systolic blood pressure 104 mm[Hg] 104 mm[Hg] [facility] Body weight 2840 [oz_av] 2840 [oz_av] ABELARDO ([facility]) Diastolic blood pressure 72 mm[Hg] 72 mm[Hg] ABELARDO ([facility]) Body height 57.5 [in_i] 57.5 [in_i] ABELARDO ([facility]) Body mass index (BMI) [Ratio] 37.7 kg/m2 37.7 k g/m2 ABELARDO ([facility]) Systolic blood pressure 104 mm[Hg] 104 mm[Hg] A THENA ([facility]) Body weight 2840 [oz_av] 2840 [oz_av] ABELARDO ([facility]) Diastolic blood pressure 72 mm[Hg] 72 mm[Hg] ABELARDO ([facility]) Body height 57.5 [in_i] 57.5 [in_i] ABELARDO ([facility]) Body mass index (BMI) [Ratio] 37.7 kg/m2 37.7 k g/m2 ABELARDO ([facility]) Systolic blood pressure 104 mm[Hg] 104 mm[Hg] A THENA ([facility]) Body weight 2840 [oz_av] 2840 [oz_av] BAELARDO ([facility]) Diastolic blood pressure 76 mm[Hg] 76 mm[Hg] ABELARDO ([facility]) Diastolic blood pressure 76 mm[Hg] 76 mm[Hg] ABELARDO ([facility]) Body height 57.5 [in_i] 57.5 [in_i] ABELARDO ([facility]) Body mass index (BMI) [Ratio] 36.6 kg/m2 36.6 k g/m2 ABELARDO ([facility]) Systolic blood pressure 111 mm[Hg] 111 mm[Hg] [facility] Body weight 2752 [oz_av] 2752 [oz_av] ABELARDO ([facility]) Diastolic blood pressure 76 mm[Hg] 76 mm[Hg] ABELARDO ([facility]) Body height 57.5 [in_i] 57.5 [in_i] ABELARDO ([facility]) Body mass index (BMI) [Ratio] 36.6 kg/m2 36.6 k g/m2 ABELARDO ([facility]) Systolic blood pressure 111 mm[Hg] 111 mm[Hg] [facility]) Body weight 2752 [oz_av] 2752 [oz_av] ABELARDO ([facility]) Diastolic blood pressure 76 mm[Hg] 76 mm[Hg] ABELARDO ([facility]) Body height 57.5 [in_i] 57.5 [in_i] ABELARDO ([facility]) Body mass index (BMI) [Ratio] 36.6 kg/m2 36.6 k g/m2 ABELARDO ([facility]) Systolic blood pressure 111 mm[Hg] 111 mm[Hg] [facility] Body weight 2752 [oz_av] 2752 [oz_av] ABELARDO ([facility]) Body height 57.5 [in_i] 57.5 [in_i] ABELARDO ([facility]) Body mass index (BMI) [Ratio] 36.6 kg/m2 36.6 k g/m2 ABELARDO ([facility]) Systolic blood pressure 111 mm[Hg] 111 mm[Hg] A THENA ([facility]) Body weight 2752 [oz_av] 2752 [oz_av] ABELARDO ([facility]) Patient Treatment Plan of Care Planned Activity Planned Date Details Description Data Source (s) Docusate Sodium 100 MG Oral Capsule ABELARDO ([facility]) Prednisone 20 MG Oral Tablet ABELARDO ([facility]) pantoprazole 40 MG Delayed Release Oral Tablet ABELARDO ([facility]) Mupirocin 0.02 MG/MG Topical Ointment ABELARDO ([facility]) Levothyroxine Sodium 0.15 MG Oral Tablet ABELARDO ([facility]) Levofloxacin 750 MG Oral Tablet ABELARDO ([facility]) Clindamycin 300 MG Oral Capsule ABELARDO ([facility]) Ciprofloxacin 3 MG/ML / Dexamethasone 1 MG/ML Otic Suspension [Cipr odex] ABELARDO ([facility]) benzonatate 100 MG Oral Capsule ABELARDO ([facility]) Acetaminophen 325 MG Oral Tablet ABELARDO ([facility]) Docusate Sodium 100 MG Oral Capsule ABELARDO ([facility]) Prednisone 20 MG Oral Tablet ABELARDO ([facility]) pantoprazole 40 MG Delayed Release Oral Tablet ABELARDO ([facility]) Mupirocin 0.02 MG/MG Topical Ointment ABELARDO ([facility]) Levothyroxine Sodium 0.15 MG Oral Tablet ABELARDO ([facility]) Levofloxacin 750 MG Oral Tablet ABELARDO ([facility]) Clindamycin 300 MG Oral Capsule ABELARDO ([facility]) Ciprofloxacin 3 MG/ML / Dexamethasone 1 MG/ML Otic Suspension [Cipr odex] ABELARDO ([facility]) benzonatate 100 MG Oral Capsule ABELARDO ([facility]) Acetaminophen 325 MG Oral Tablet ABELARDO ([facility]) Docusate Sodium 100 MG Oral Capsule ABELARDO ([facility]) Prednisone 20 MG Oral Tablet ABELARDO ([facility]) pantoprazole 40 MG Delayed Release Oral Tablet ABELARDO ([facility]) Mupirocin 0.02 MG/MG Topical Ointment ABELARDO ([facility]) Levothyroxine Sodium 0.15 MG Oral Tablet ABELARDO ([facility]) Levofloxacin 750 MG Oral Tablet ABELARDO ([facility]) Clindamycin 300 MG Oral Capsule ABELARDO ([facility]) Ciprofloxacin 3 MG/ML / Dexamethasone 1 MG/ML Otic Suspension [Cipr odex] ABELARDO ([facility]) benzonatate 100 MG Oral Capsule ABELARDO ([facility]) Acetaminophen 325 MG Oral Tablet ABELARDO ([facility]) Docusate Sodium 100 MG Oral Capsule ABELARDO ([facility]) Prednisone 20 MG Oral Tablet ABELARDO ([facility]) pantoprazole 40 MG Delayed Release Oral Tablet ABELARDO ([facility]) Mupirocin 0.02 MG/MG Topical Ointment ABELARDO ([facility]) Levothyroxine Sodium 0.15 MG Oral Tablet ABELARDO ([facility]) Levofloxacin 750 MG Oral Tablet ABELARDO ([facility]) Ciprofloxacin 3 MG/ML / Dexamethasone 1 MG/ML Otic Suspension [Cipr odex] ABELARDO ([facility]) benzonatate 100 MG Oral Capsule ABELARDO ([facility]) Acetaminophen 325 MG Oral Tablet ABELARDO ([facility])
[2021-10-17] MEDS ORDERED: IBUP200C25 PO (09:29)
[2021-10-17 12:34] LABS: RSV AMPLIFICATION NEGATIVE (NEGATIVE)
--- NOTE | 2021-10-17 14:01 | REP ---
INDICATION: cough/sob. COMPARISON: 12/27/2019 TECHNIQUE: PA and lateral FINDINGS: The cardiomediastinal silhouette is unchanged. There is a dual chamber bipolar pacemaker device status quo. New patchy opacities have developed in the right upper and left lower lobes. The interstitial markings appear diffusely increased. There is early pulmonary vascular redistribution. IMPRESSION: Asymmetric pulmonary edema and or pneumonia correlate clinically. <Electronically signed by Mohinder Colin > 10/17/21 [id number]
--- OUTSIDE RECORDS SUMMARY | 2021-10-17 14:03 | CCD ---
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 Data Riddhi rce(s) Supporting Document(s) Hemoglobin A1c/Hemoglobin.total in Blood 5.6 %_of_total_HGB <5.7 Hemoglobin a1C ABELARDO ([facility]) Glucose mean value [Mass/volume] in Blood Estimated fr om glycated hemoglobin 114 (calc) EAG (mg/dL) VIOLA ([facility]) Glucose mean value [Moles/volume] in Blood Estimated f rom glycated hemoglobin 6.3 (calc) EAG (mmol/L) VIOLA ([facility]) ID Date Data Source [id number] 06/15/2021 12:00:00 AM EDT [facility]) Name Value Range Interpretation Code Description Data Riddhi rce(s) Supporting Document(s) Calcidiol [Mass/volume] in Serum or Plasma 27 NG/mL 30-100 Below low normal Vitamin D,25-Oh,total,ia VIOLA ([facility]) ID Date Data Source [id number] 06/15/2021 12:00:00 AM EDT [facility]) Name Value Range Interpretation Code Description Data Riddhi rce(s) Supporting Document(s) Leukocytes [#/volume] in Blood by Automated count 6.8 thousand/uL 3 .8-10.8 White Blood Cell Count ABELARDO ([facility]) Erythrocytes [#/volume] in Blood by Automated count 5.24 million/uL 4.20-5.80 Red Blood Cell Count ABELARDO ([facility]) Hematocrit [Volume Fraction] of Blood by Automated count 45.2 % 38.5-50.0 Hematocrit ABELARDO ([facility]) Erythrocyte mean corpuscular volume [Entitic volume] by Auto mated count 86.3 fL 80.0-100.0 Mcv ABELARDO ([facility]) Hemoglobin [Mass/volume] in Blood 15.2 g/dL 13.2-17.1 He moglobin ABELARDO ([facility]) Erythrocyte mean corpuscular hemoglobin concentration [Mass/volume] by Automated count 33.6 g/dL 32.0-36.0 Mchc ABELARDO ([facility]) Erythrocyte mean corpuscular hemoglobin [Entitic mass] by Automated count 29.0 pg 27.0-33.0 Mch ABELARDO ([facility]) Erythrocyte distribution width [Ratio] by Automated count 14.4 % 11.0-15.0 Rdw ABELARDO ([facility]) Platelets [#/volume] in Blood by Automated count 255 thousand/uL 14 0-400 Platelet Count ABELARDO ([facility]) Neutrophils [#/volume] in Blood by Automated count 4740 cells/uL 15 00-7800 Absolute Neutrophils ABELARDO ([facility]) Platelet mean volume [Entitic volume] in Blood by [place] 10.3 f L 7.5-12.5 Mpv ABELARDO ([facility]) Monocytes [#/volume] in Blood by Automated count 666 cells/uL 200-9 50 Absolute Monocytes ABELARDO ([facility]) Eosinophils [#/volume] in Blood by Automated count 27 cells/uL 15- 500 Absolute Eosinophils ABELARDO ([facility]) Lymphocytes [#/volume] in Blood by Automated count 1319 cells/uL 85 0-3900 Absolute Lymphocytes ABELARDO ([facility]) Neutrophils/100 leukocytes in Blood by Automated count 69.7 % 38-80 Neutrophils ABELARDO ([facility]) Basophils [#/volume] in Blood by Automated count 48 cells/uL 0-200 Absolute Basophils ABELARDO ([facility]) Lymphocytes/100 leukocytes in Blood by Automated count 19.4 % 15-49 Lymphocytes ABELARDO ([facility]) Monocytes/100 leukocytes in Blood by Automated count 9.8 % 0-13 Monocytes ABELARDO ([facility]) Eosinophils/100 leukocytes in Blood by Automated count 0.4 % 0-8 Eosinophils ABELARDO ([facility]) Basophils/100 leukocytes in Blood by Automated count 0.7 % 0-2 Basophils ABELARDO ([facility]) ID Date Data Source [id number] 06/15/2021 12:00:00 AM EDT [facility]) Name Value Range Interpretation Code Description Data Riddhi rce(s) Supporting Document(s) Glucose [Mass/volume] in Serum or Plasma 100 mg/dL 65-99 Above high normal Glucose ABELARDO ([facility]) Urea nitrogen [Mass/volume] in Serum or Plasma 16 mg/dL 7-25 Urea Nitrogen (BUN) ABELARDO ([facility]) Creatinine [Mass/volume] in Serum or Plasma 0.95 mg/dL 0.60-1.35 Creatinine ABELARDO ([facility]) Glomerular filtration rate/1.73 sq M.pre dicted among non-blacks [Volume Rate/Area] in Serum, Plasma or Blood by Creatinine-based formula (CKD-EPI) 110 mL/min/1.73m2 > or = 60 eGFR Non-afr. Libyan ABELARDO ([facility]) Urea nitrogen/Creatinine [Mass Ratio] in Serum or Plasma not applic able 6-22 BUN/creatinine Ratio ABELARDO ([facility]) Glomerular filtration rate/1.73 sq M.pre dicted among blacks [Volume Rate/Area] in Serum, Plasma or Blood by Creatinine-based formula (CKD-EPI) 128 mL/min/1.73m2 > or = 60 eGFR ABELARDO ([facility]) Sodium [Moles/volume] in Serum or Plasma 139 mmol/L 135-146 Sodium ABELARDO ([facility]) Potassium [Moles/volume] in Serum or Plasma 4.3 mmol/L 3.5-5.3 Potassium ABELARDO ([facility]) Chloride [Moles/volume] in Serum or Plasma 105 mmol/L 98-110 Chloride VIOLA ([facility]) Calcium [Mass/volume] in Serum or Plasma 8.5 mg/dL 8.6-10.3 Below low normal Calcium VIOLA ([facility]) Carbon dioxide, total [Moles/volume] in Serum or Plasma 27 mmol/L 20-32 Carbon Dioxide VIOLA ([facility]) Protein [Mass/volume] in Serum or Plasma 6.1 g/dL 6.1-8.1 Protein, Total [facility]) Globulin [Mass/volume] in Serum by calculation 2.4 g/dL_(calc) 1.9- 3.7 Globulin VIOLA ([facility]) Albumin [Mass/volume] in Serum or Plasma 3.7 g/dL 3.6-5.1 Albumin [facility]) Bilirubin.total [Mass/volume] in Serum or Plasma 0.5 mg/dL 0.2-1 .2 Bilirubin, Total VIOLA ([facility]) Albumin/Globulin [Mass Ratio] in Serum or Plasma 1.5 (calc) 1.0-2 .5 Albumin/globulin Ratio VIOLA ([facility]) Alkaline phosphatase [Enzymatic activity/volume] in Serum or Plasma 85 U/L 36-130 Alkaline Phosphatase VIOLA ([facility]) Alanine aminotransferase [Enzymatic activity/volume] in Seru m or Plasma 11 U/L 9-46 Alt VIOLA ([facility]) Aspartate aminotransferase [Enzymatic activity/volume] in Serum or Plasma 14 U/L 10-40 Ast VIOLA ([facility]) ID Date Data Source [id number] 06/15/2021 12:00:00 AM EDT [facility]) Name Value Range Interpretation Code Description Data Riddhi rce(s) Supporting Document(s) Thyrotropin [Units/volume] in Serum or Plasma 2.43 mIU/L 0.40-4.50 Tsh [facility]) Thyroxine (T4) free [Mass/volume] in Serum or Plasma 1.6 NG/dL 0 .8-1.8 T4, Free ABELARDO ([facility]) ID Date Data Source [id number] 06/15/2021 12:00:00 AM EDT ABELARDO ([facility]) Name Value Range Interpretation Code Description Data Riddhi rce(s) Supporting Document(s) Cholesterol [Mass/volume] in Serum or Plasma 233 mg/dL <200 Above high normal Cholesterol, Total ABELARDO ([facility]) Cholesterol in HDL [Mass/volume] in Serum or Plasma 44 mg/dL > or = 40 HDL Cholesterol ABELARDO ([facility]) Triglyceride [Mass/volume] in Serum or Plasma 162 mg/dL <150 Above high normal Triglycerides ABELARDO ([facility]) Cholesterol in LDL [Mass/volume] in Serum or Plasma by calculation 159 mg/dL_(calc) Above high normal LDL-cholesterol ABELARDO ([facility]) Cholesterol.total/Cholesterol in HDL [Mass Ratio] in Serum o r Plasma 5.3 (calc) <5.0 Above high normal Chol/hdlc Ratio ABELARDO ([facility]) Cholesterol non HDL [Mass/volume] in Serum or Plasma 189 mg/dL_( calc) <130 Above high normal Non HDL Cholesterol ABELARDO ([facility]) ID Date Data Source [id number] 09/20/2020 02:05:00 PM EST ABELARDO ([facility]) Name Value Range Interpretation Code Description Data Riddhi rce(s) Supporting Document(s) estimated average glucose 111 mg/dL 60-110 Above high norm al Estimated Average Glucose ABELARDO ([facility]) Hemoglobin A1c/Hemoglobin.total in Blood 5.5 % Hemoglobin a1C [facility]) ID Date Data Source [id number] 09/20/2020 02:05:00 PM EST VIOLA ([facility]) Name Value Range Interpretation Code Description Data Riddhi rce(s) Supporting Document(s) total 25(oh) vitamin D 21.4 NG/mL 30.0-100.0 Below low normal T otal 25(Oh) Vitamin D ABELARDO ([facility]) ID Date Data Source [id number] 09/20/2020 02:05:00 PM EST ABELARDO ([facility]) Name Value Range Interpretation Code Description Data Riddhi rce(s) Supporting Document(s) free T4 1.44 NG/dL 0.76-1.46 Free T4 ABELARDO ([facility]) thyroid stimulating hormone 7.020 uIU/mL 0.358-3.740 Above high no rmal Thyroid Stimulating Hormone ABELARDO ([facility]) ID Date Data Source [id number] 09/20/2020 02:05:00 PM EST ABELARDO ([facility]) Name Value Range Interpretation Code Description Data Riddhi rce(s) Supporting Document(s) HDL cholesterol 45 mg/dL >40 HDL Cholesterol ATHE NA ([facility]) non-HDL-C 214 mg/dL Non-hdl-c ABELARDO ([facility]) Cholesterol in LDL [Mass/volume] in Serum or Plasma 182 mg/dL <100 Above high normal LDL Cholesterol ABELARDO ([facility]) triglycerides level 161 mg/dL <150 Above high normal Triglycer ides Level ABELARDO ([facility]) cholesterol level 259 mg/dL <200 Above high normal Cholesterol Level ABELARDO ([facility]) cholesterol risk ratio <5 Above high normal Choles terol Risk Ratio ABELARDO ([facility]) ID Date Data Source [id number] 09/20/2020 02:05:00 PM EST ABELARDO ([facility]) Name Value Range Interpretation Code Description Data Riddhi rce(s) Supporting Document(s) glucose, fasting 96 mg/dL 70-100 Glucose, Fasting AT [facility] ([facility]) creatinine for GFR 0.92 mg/dL 0.70-1.30 Creatinine for GF R ABELARDO ([facility]) blood urea nitrogen 11 mg/dL 7-18 Blood Urea Nitro gen ABELARDO ([facility]) glomerular filtration rate > 60.0 >60 Glomerula r Filtration Rate ABELARDO ([facility]) potassium serum 4.3 mEq/L 3.5-5.1 Potassium Serum ATHE NA ([facility]) sodium level 140 mEq/L 136-145 Sodium Level ABELARDO ([facility]) chloride level 108 mEq/L 98-107 Above high normal Chloride Level ABELARDO ([facility]) calcium level 8.9 mg/dL 8.5-10.1 Calcium Level ABELARDO ( [facility]) anion gap 4 mEq/L 8-16 Below low normal Anion Gap ABELARDO ( [facility]) carbon dioxide level 28 mEq/L 21-32 Carbon Dioxide Level ABELARDO ([facility]) ALT/SGPT 22 U/L 12-78 ALT/SGPT ABELARDO ([facility]) AST/SGOT 18 U/L 7-37 AST/SGOT ABELARDO ([facility]) bilirubin,total 0.6 mg/dL 0.2-1.0 Bilirubin,total ATHE NA ([facility]) alkaline phosphatase 98 U/L 45-117 Alkaline Phosph atase ABELARDO ([facility]) albumin 3.3 gm/dL 3.2-5.2 Albumin ABELARDO ([facility]) albumin/globulin ratio Albumin/globu sneha Ratio ABELARDO ([facility]) total protein 6.6 gm/dL 6.4-8.2 Total Protein ABELARDO ( [facility]) ID Date Data Source [id number] 09/20/2020 02:05:00 PM EST ABELARDO ([facility]) Name Value Range Interpretation Code Description Data Riddhi rce(s) Supporting Document(s) white blood count 5.3 10 4.0-10.0 White Blood Count ABELARDO ([facility]) hemoglobin 14.7 g/dL 13.5-17.5 Hemoglobin ABELARDO ([facility]) red blood count 5.22 10 4.30-6.10 Red Blood Count ATHE NA ([facility]) mean corpuscular volume 87.4 fL 80.0-96.0 Mean Corpusc ular Volume ABELARDO ([facility]) mean corpuscular hemoglobin 28.2 pg 27.0-33.0 Mean Cor puscular Hemoglobin ABELARDO ([facility]) hematocrit 45.6 % 42.0-52.0 Hematocrit ABELARDO ([facility]) mean corpuscular HGB conc 32.2 g/dL 32.0-36.5 Mean Corpu scular HGB Conc ABELARDO ([facility]) red cell distribution width 13.7 % 11.5-14.5 Red Cell Distribution Width ABELARDO ([facility]) neutrophils % 68.5 % 36.0-66.0 Above high normal Neutrophils % A THENA ([facility]) platelet count, automated 252 10 150-450 Platelet C ount, Automated ABELARDO ([facility]) lymph % 20.6 % 24.0-44.0 Below low normal Lymph % ABELARDO ( [facility]) mono % 9.1 % 0.0-5.0 Above high normal [place] % ABELARDO ([facility]) eos % 0.4 % 0.0-3.0 Eos % ABELARDO ([facility]) baso % 0.8 % 0.0-1.0 Baso % ABELARDO ([facility]) nucleated red blood cell % 0.0 % 0-0 Nucleated Red Blood Cell % ABELARDO ([facility]) immature granulocyte % 0.6 % 0-3.0 Immature Gran ulocyte % ABELARDO ([facility]) mono # 0.5 10 0.0-0.8 [place] # ABELARDO ([facility]) neutrophils # 3.6 10 1.5-8.5 Neutrophils # ABELARDO ( [facility]) lymph # 1.1 10 1.5-5.0 Below low normal Lymph # ABELARDO ( [facility]) baso # 0.0 10 0.0-0.2 Baso # ABELARDO ([facility]) eos # 0.0 10 0.0-0.5 Eos # ABELARDO ([facility]) ID Date Data Source [id number] 09/20/2020 02:05:00 PM EST ABELARDO ([facility]) Name Value Range Interpretation Code Description Data Riddhi rce(s) Supporting Document(s) Hemoglobin A1c/Hemoglobin.total in Blood 5.5 % Hemoglobin a1C ABELARDO ([facility]) estimated average glucose 111 mg/dL 60-110 Above high norm al Estimated Average Glucose ABELARDO ([facility]) ID Date Data Source [id number] 09/20/2020 02:05:00 PM EST ABELARDO ([facility]) Name Value Range Interpretation Code Description Data Riddhi rce(s) Supporting Document(s) total 25(oh) vitamin D 21.4 NG/mL 30.0-100.0 Below low normal T otal 25(Oh) Vitamin D ABELARDO ([facility]) ID Date Data Source [id number] 09/20/2020 02:05:00 PM EST ABELARDO ([facility]) Name Value Range Interpretation Code Description Data Riddhi rce(s) Supporting Document(s) free T4 1.44 NG/dL 0.76-1.46 Free T4 ABELARDO ([facility]) thyroid stimulating hormone 7.020 uIU/mL 0.358-3.740 Above high no rmal Thyroid Stimulating Hormone ABELARDO ([facility]) ID Date Data Source [id number] 09/20/2020 02:05:00 PM EST ABELARDO ([facility]) Name Value Range Interpretation Code Description Data Riddhi rce(s) Supporting Document(s) triglycerides level 161 mg/dL <150 Above high normal Triglycer ides Level ABELARDO ([facility]) HDL cholesterol 45 mg/dL >40 HDL Cholesterol ATHE ([facility]) non-HDL-C 214 mg/dL Non-hdl-c ABELARDO ([facility]) Cholesterol in LDL [Mass/volume] in Serum or Plasma 182 mg/dL <100 Above high normal LDL Cholesterol ABELARDO ([facility]) cholesterol level 259 mg/dL <200 Above high normal Cholesterol Level ABELARDO ([facility]) cholesterol risk ratio <5 Above high normal Choles terol Risk Ratio ABELARDO ([facility]) ID Date Data Source [id number] 09/20/2020 02:05:00 PM EST ABELARDO ([facility]) Name Value Range Interpretation Code Description Data Riddhi rce(s) Supporting Document(s) glucose, fasting 96 mg/dL 70-100 Glucose, Fasting AT [facility] ([facility]) blood urea nitrogen 11 mg/dL 7-18 Blood Urea Nitro gen ABELARDO ([facility]) glomerular filtration rate > 60.0 >60 Glomerula r Filtration Rate ABELARDO ([facility]) sodium level 140 mEq/L 136-145 Sodium Level ABELARDO ([facility]) creatinine for GFR 0.92 mg/dL 0.70-1.30 Creatinine for GF R ABELARDO ([facility]) carbon dioxide level 28 mEq/L 21-32 Carbon Dioxide Level ABELARDO ([facility]) chloride level 108 mEq/L 98-107 Above high normal Chloride Level ABELARDO ([facility]) potassium serum 4.3 mEq/L 3.5-5.1 Potassium Serum ATHE ([facility]) anion gap 4 mEq/L 8-16 Below low normal Anion Gap ABELARDO ( [facility]) AST/SGOT 18 U/L 7-37 AST/SGOT ABELARDO ([facility]) calcium level 8.9 mg/dL 8.5-10.1 Calcium Level ABELARDO ( [facility]) ALT/SGPT 22 U/L 12-78 ALT/SGPT ABELARDO ([facility]) total protein 6.6 gm/dL 6.4-8.2 Total Protein ABELARDO ( [facility]) alkaline phosphatase 98 U/L 45-117 Alkaline Phosph atase ABELARDO ([facility] [facility] bilirubin,total 0.6 mg/dL 0.2-1.0 Bilirubin,total ATHE ([facility]) albumin/globulin ratio Albumin/globu sneha Ratio ABELARDO ([facility]) albumin 3.3 gm/dL 3.2-5.2 Albumin ABELARDO ([facility]) ID Date Data Source [id number] 09/20/2020 02:05:00 PM EST ABELARDO ([facility]) Name Value Range Interpretation Code Description Data Riddhi rce(s) Supporting Document(s) white blood count 5.3 10 4.0-10.0 White Blood Count ABELARDO ([facility]) red blood count 5.22 10 4.30-6.10 Red Blood Count ATHE NA ([facility]) hematocrit 45.6 % 42.0-52.0 Hematocrit ABELARDO ([facility]) mean corpuscular volume 87.4 fL 80.0-96.0 Mean Corpusc ular Volume ABELARDO ([facility]) hemoglobin 14.7 g/dL 13.5-17.5 Hemoglobin ABELARDO ([facility]) red cell distribution width 13.7 % 11.5-14.5 Red Cell Distribution Width ABELARDO ([facility]) mean corpuscular hemoglobin 28.2 pg 27.0-33.0 Mean Cor puscular Hemoglobin ABELARDO ([facility]) mean corpuscular HGB conc 32.2 g/dL 32.0-36.5 Mean Corpu scular HGB Conc ABELARDO ([facility]) platelet count, automated 252 10 150-450 Platelet C ount, Automated ABELARDO ([facility]) neutrophils % 68.5 % 36.0-66.0 Above high normal Neutrophils % A THENA ([facility]) lymph % 20.6 % 24.0-44.0 Below low normal Lymph % ABELARDO ( [facility]) eos % 0.4 % 0.0-3.0 Eos % ABELARDO ([facility]) mono % 9.1 % 0.0-5.0 Above high normal [place] % ABELARDO ([facility]) baso % 0.8 % 0.0-1.0 Baso % ABELARDO ([facility]) neutrophils # 3.6 10 1.5-8.5 Neutrophils # ABELARDO ( [facility]) nucleated red blood cell % 0.0 % 0-0 Nucleated Red Blood Cell % ABELARDO ([facility]) immature granulocyte % 0.6 % 0-3.0 Immature Gran ulocyte % ABELARDO ([facility]) lymph # 1.1 10 1.5-5.0 Below low normal Lymph # ABELARDO ( [facility]) mono # 0.5 10 0.0-0.8 [place] # ABELARDO ([facility]) baso # 0.0 10 0.0-0.2 Baso # ABELARDO ([facility]) eos # 0.0 10 0.0-0.5 Eos # ABELARDO ([facility]) ID Date Data Source [id number] 09/20/2020 02:05:00 PM EST ABELARDO ([facility]) Name Value Range Interpretation Code Description Data Riddhi rce(s) Supporting Document(s) Hemoglobin A1c/Hemoglobin.total in Blood 5.5 % Hemoglobin a1C VIOLA ([facility]) estimated average glucose 111 mg/dL 60-110 Above high norm al Estimated Average Glucose VIOLA ([facility]) ID Date Data Source [id number] 09/20/2020 02:05:00 PM EST ABELARDO ([facility]) Name Value Range Interpretation Code Description Data Riddhi rce(s) Supporting Document(s) total 25(oh) vitamin D 21.4 NG/mL 30.0-100.0 Below low normal T otal 25(Oh) Vitamin D VIOLA ([facility]) ID Date Data Source [id number] 09/20/2020 02:05:00 PM EST ABELARDO ([facility]) Name Value Range Interpretation Code Description Data Riddhi rce(s) Supporting Document(s) thyroid stimulating hormone 7.020 uIU/mL 0.358-3.740 Above high no rmal Thyroid Stimulating Hormone ABELARDO ([facility]) free T4 1.44 NG/dL 0.76-1.46 Free T4 VIOLA ([facility]) ID Date Data Source [id number] 09/20/2020 02:05:00 PM EST ABELARDO ([facility]) Name Value Range Interpretation Code Description Data Riddhi rce(s) Supporting Document(s) triglycerides level 161 mg/dL <150 Above high normal Triglycer ides Level ABELARDO ([facility]) cholesterol level 259 mg/dL <200 Above high normal Cholesterol Level AEBLARDO ([facility]) HDL cholesterol 45 mg/dL >40 HDL Cholesterol ATHE NA ([facility]) cholesterol risk ratio <5 Above high normal Choles terol Risk Ratio ABELARDO ([facility]) non-HDL-C 214 mg/dL Non-hdl-c ABELARDO ([facility]) Cholesterol in LDL [Mass/volume] in Serum or Plasma 182 mg/dL <100 Above high normal LDL Cholesterol ABELARDO ([facility]) ID Date Data Source [id number] 09/20/2020 02:05:00 PM EST ABELARDO ([facility]) Name Value Range Interpretation Code Description Data Riddhi rce(s) Supporting Document(s) blood urea nitrogen 11 mg/dL 7-18 Blood Urea Nitro gen ABELARDO ([facility]) glucose, fasting 96 mg/dL 70-100 Glucose, Fasting AT CHANELLE ([facility]) sodium level 140 mEq/L 136-145 Sodium Level ABELARDO ([facility]) creatinine for GFR 0.92 mg/dL 0.70-1.30 Creatinine for GF R ABELARDO ([facility]) glomerular filtration rate > 60.0 >60 Glomerula r Filtration Rate ABELARDO ([facility]) potassium serum 4.3 mEq/L 3.5-5.1 Potassium Serum ATHE NA ([facility]) chloride level 108 mEq/L 98-107 Above high normal Chloride Level ABELARDO ([facility]) AST/SGOT 18 U/L 7-37 AST/SGOT ABELARDO ([facility]) anion gap 4 mEq/L 8-16 Below low normal Anion Gap ABELARDO ( [facility]) carbon dioxide level 28 mEq/L 21-32 Carbon Dioxide Level ABELARDO ([facility]) calcium level 8.9 mg/dL 8.5-10.1 Calcium Level ABELARDO ( [facility]) total protein 6.6 gm/dL 6.4-8.2 Total Protein ABELARDO ( [facility]) ALT/SGPT 22 U/L 12-78 ALT/SGPT ABELARDO ([facility]) bilirubin,total 0.6 mg/dL 0.2-1.0 Bilirubin,total ATHE NA ([facility]) alkaline phosphatase 98 U/L 45-117 Alkaline Phosph atase ABELARDO ([facility]) albumin/globulin ratio Albumin/globu sneha Ratio ABELARDO ([facility]) albumin 3.3 gm/dL 3.2-5.2 Albumin ABELARDO ([facility]) ID Date Data Source [id number] 09/20/2020 02:05:00 PM EST ABELARDO ([facility]) Name Value Range Interpretation Code Description Data Riddhi rce(s) Supporting Document(s) white blood count 5.3 10 4.0-10.0 White Blood Count ABELARDO ([facility]) hemoglobin 14.7 g/dL 13.5-17.5 Hemoglobin ABELARDO ([facility]) red blood count 5.22 10 4.30-6.10 Red Blood Count ATHE ([facility]) hematocrit 45.6 % 42.0-52.0 Hematocrit ABELARDO ([facility]) mean corpuscular volume 87.4 fL 80.0-96.0 Mean Corpusc ular Volume ABELARDO ([facility]) mean corpuscular HGB conc 32.2 g/dL 32.0-36.5 Mean Corpu scular HGB Conc ABELARDO ([facility]) mean corpuscular hemoglobin 28.2 pg 27.0-33.0 Mean Cor puscular Hemoglobin ABELARDO ([facility]) platelet count, automated 252 10 150-450 Platelet C ount, Automated ABELARDO ([facility]) red cell distribution width 13.7 % 11.5-14.5 Red Cell Distribution Width ABELARDO ([facility]) neutrophils % 68.5 % 36.0-66.0 Above high normal Neutrophils % A THENA ([facility]) lymph % 20.6 % 24.0-44.0 Below low normal Lymph % ABELARDO ( [facility]) eos % 0.4 % 0.0-3.0 Eos % ABELARDO ([facility]) baso % 0.8 % 0.0-1.0 Baso % ABELARDO ([facility]) immature granulocyte % 0.6 % 0-3.0 Immature Gran ulocyte % ABELARDO ([facility]) mono % 9.1 % 0.0-5.0 Above high normal [place] % ABELARDO ([facility]) neutrophils # 3.6 10 1.5-8.5 Neutrophils # ABELARDO ( [facility]) nucleated red blood cell % 0.0 % 0-0 Nucleated Red Blood Cell % ABELARDO ([facility]) lymph # 1.1 10 1.5-5.0 Below low normal Lymph # ABELARDO ( [facility]) mono # 0.5 10 0.0-0.8 [place] # ABELARDO ([facility]) eos # 0.0 10 0.0-0.5 Eos # ABELARDO ([facility]) baso # 0.0 10 0.0-0.2 Baso # ABELARDO ([facility]) Procedure Social History No Information Vital Signs ID Date Data Source UNK Name Value Range Interpretation Code Description Data Source(s) Diastolic blood pressure 84 mm[Hg] 84 mm[Hg] ABELARDO ([facility]) Body height 57.5 [in_i] 57.5 [in_i] ABELARDO ([facility]) Body mass index (BMI) [Ratio] 38.3 kg/m2 38.3 k g/m2 ABELARDO ([facility]) Systolic blood pressure 122 mm[Hg] 122 mm[Hg] A THENA ([facility]) Body weight 2880 [oz_av] 2880 [oz_av] ABELARDO ([facility]) Body height 57.5 [in_i] 57.5 [in_i] ABELARDO ([facility]) Body height 57.5 [in_i] 57.5 [in_i] ABELARDO ([facility]) Diastolic blood pressure 72 mm[Hg] 72 mm[Hg] ABELARDO ([facility]) Body height 57.5 [in_i] 57.5 [in_i] ABELARDO ([facility]) Body mass index (BMI) [Ratio] 37.7 kg/m2 37.7 k g/m2 ABELARDO ([facility]) Systolic blood pressure 104 mm[Hg] 104 mm[Hg] [facility]) Body weight 2840 [oz_av] 2840 [oz_av] ABELARDO ([facility]) Body height 57.5 [in_i] 57.5 [in_i] ABELARDO ([facility]) Diastolic blood pressure 72 mm[Hg] 72 mm[Hg] ABELARDO ([facility]) Body mass index (BMI) [Ratio] 37.7 kg/m2 37.7 k g/m2 ABELARDO ([facility]) Systolic blood pressure 104 mm[Hg] 104 mm[Hg] A THENA ([facility]) Body weight 2840 [oz_av] 2840 [oz_av] ABELARDO ([facility]) Diastolic blood pressure 72 mm[Hg] 72 mm[Hg] ABELARDO ([facility]) Body height 57.5 [in_i] 57.5 [in_i] ABELARDO ([facility]) Body mass index (BMI) [Ratio] 37.7 kg/m2 37.7 k g/m2 ABELARDO ([facility]) Systolic blood pressure 104 mm[Hg] 104 mm[Hg] A THENA ([facility]) Body weight 2840 [oz_av] 2840 [oz_av] ABELARDO ([facility]) Body weight 2752 [oz_av] 2752 [oz_av] ABELARDO ([facility]) Diastolic blood pressure 76 mm[Hg] 76 mm[Hg] ABELARDO ([facility]) Body height 57.5 [in_i] 57.5 [in_i] ABELARDO ([facility]) Body mass index (BMI) [Ratio] 36.6 kg/m2 36.6 k g/m2 ABELARDO ([facility]) Systolic blood pressure 111 mm[Hg] 111 mm[Hg] A [facility] ([facility]) Diastolic blood pressure 76 mm[Hg] 76 mm[Hg] ABELARDO ([facility]) Body height 57.5 [in_i] 57.5 [in_i] ABELARDO ([facility]) Body mass index (BMI) [Ratio] 36.6 kg/m2 36.6 k g/m2 ABELARDO ([facility]) Systolic blood pressure 111 mm[Hg] 111 mm[Hg] A THENA ([facility]) Body weight 2752 [oz_av] 2752 [oz_av] ABELARDO ([facility]) Diastolic blood pressure 76 mm[Hg] 76 mm[Hg] ABELARDO ([facility]) Body height 57.5 [in_i] 57.5 [in_i] ABELARDO ([facility]) Body mass index (BMI) [Ratio] 36.6 kg/m2 36.6 k g/m2 ABELARDO ([facility]) Systolic blood pressure 111 mm[Hg] 111 mm[Hg] A THENA ([facility]) Body weight 2752 [oz_av] 2752 [oz_av] ABELARDO ([facility]) Diastolic blood pressure 76 mm[Hg] 76 mm[Hg] ABELARDO ([facility]) Body height 57.5 [in_i] 57.5 [in_i] ABELARDO ([facility]) Body mass index (BMI) [Ratio] 36.6 kg/m2 36.6 k g/m2 ABELARDO ([facility]) Systolic blood pressure 111 mm[Hg] 111 mm[Hg] A THENA ([facility]) Body weight 2752 [oz_av] 2752 [oz_av] ABELARDO ([facility]) Patient Treatment Plan of Care Planned Activity Planned Date Details Description Data Source (s) Docusate Sodium 100 MG Oral Capsule ABELARDO ([facility]) Prednisone 20 MG Oral Tablet ABELARDO ([facility]) pantoprazole 40 MG Delayed Release Oral Tablet ABELARDO ([facility]) Mupirocin 0.02 MG/MG Topical Ointment ABELARDO ([facility]) Levothyroxine Sodium 0.15 MG Oral Tablet ABELARDO ([facility]) Levofloxacin 750 MG Oral Tablet ABELARDO ([facility]) Clindamycin 300 MG Oral Capsule ABELARDO ([facility]) Ciprofloxacin 3 MG/ML / Dexamethasone 1 MG/ML Otic Suspension [Cipr odex] ABELARDO ([facility]) benzonatate 100 MG Oral Capsule ABELARDO ([facility]) Acetaminophen 325 MG Oral Tablet ABELARDO ([facility]) Docusate Sodium 100 MG Oral Capsule ABELARDO ([facility]) Prednisone 20 MG Oral Tablet ABELARDO ([facility]) pantoprazole 40 MG Delayed Release Oral Tablet ABELARDO ([facility]) Mupirocin 0.02 MG/MG Topical Ointment ABELARDO ([facility]) Levothyroxine Sodium 0.15 MG Oral Tablet ABELARDO ([facility]) Levofloxacin 750 MG Oral Tablet ABELARDO ([facility]) Clindamycin 300 MG Oral Capsule ABELARDO ([facility]) Ciprofloxacin 3 MG/ML / Dexamethasone 1 MG/ML Otic Suspension [Cipr odex] ABELARDO ([facility]) benzonatate 100 MG Oral Capsule ABELARDO ([facility]) Acetaminophen 325 MG Oral Tablet ABELARDO ([facility]) Docusate Sodium 100 MG Oral Capsule ABELARDO ([facility]) Prednisone 20 MG Oral Tablet ABELARDO ([facility]) pantoprazole 40 MG Delayed Release Oral Tablet ABELARDO ([facility]) Mupirocin 0.02 MG/MG Topical Ointment ABELARDO ([facility]) Levothyroxine Sodium 0.15 MG Oral Tablet ABELARDO ([facility]) Levofloxacin 750 MG Oral Tablet ABELARDO ([facility]) Clindamycin 300 MG Oral Capsule ABELARDO ([facility]) Ciprofloxacin 3 MG/ML / Dexamethasone 1 MG/ML Otic Suspension [Cipr odex] ABELARDO ([facility]) benzonatate 100 MG Oral Capsule ABELARDO ([facility]) Acetaminophen 325 MG Oral Tablet ABELARDO ([facility]) Docusate Sodium 100 MG Oral Capsule ABELARDO ([facility]) Prednisone 20 MG Oral Tablet ABELARDO ([facility]) pantoprazole 40 MG Delayed Release Oral Tablet ABELARDO ([facility]) Mupirocin 0.02 MG/MG Topical Ointment ABELARDO ([facility]) Levothyroxine Sodium 0.15 MG Oral Tablet ABELARDO ([facility]) Levofloxacin 750 MG Oral Tablet ABELARDO ([facility]) Ciprofloxacin 3 MG/ML / Dexamethasone 1 MG/ML Otic Suspension [Cipr odex] ABELARDO ([facility]) benzonatate 100 MG Oral Capsule ABELARDO ([facility]) Acetaminophen 325 MG Oral Tablet ABELARDO ([facility])
[2021-10-17 14:59] LABS: BASO # 0.1 10^3/uL (0.0-0.2); BASO % 0.4 % (0.0-1.0); EOS % 0.1 % (0.0-3.0); HEMATOCRIT 44.6 % (42.0-52.0); HEMOGLOBIN 14.7 g/dl (13.5-17.5); LYMPH # 0.8 10^3/uL (1.5-5.0); LYMPH % 4.7 % (24.0-44.0); MEAN CORPUSCULAR HEMOGLOBIN 28.8 pg (27.0-33.0); MEAN CORPUSCULAR VOLUME 87.3 fl (80.0-96.0); MONO % 5.3 % (2.0-8.0); NEUTROPHILS % 88.5 % (36.0-66.0); PLATELET COUNT, AUTOMATED 239 10^3/uL (150-450); RED BLOOD COUNT 5.11 10^6/uL (4.30-6.10)
[2021-10-17 15:18] LABS: CK-MB VALUE MASS < 1.0 NG/ML (<3.6); CPK CREATINE PHOSPHOKINASE 65 U/L (39-308); MB/CK RELATIVE INDEX 1.54 (< OR =4)
[2021-10-17 15:26] LABS: ALBUMIN 2.9 GM/DL (3.2-5.2); BILIRUBIN,DIRECT 0.2 MG/DL (0.0-0.2); BILIRUBIN,TOTAL 0.7 MG/DL (0.2-1.0); FREE T4 1.69 NG/DL (0.76-1.46); THYROID STIMULATING HORMONE 1.18 uIU/ML (0.358-3.740); TOTAL PROTEIN 6.3 GM/DL (6.4-8.2)
[2021-10-17] MEDS ORDERED: MIRA1POW3 PO (15:47)
[2021-10-17] MEDS ORDERED: HM I1TAB PO (15:47)
[2021-10-17] MEDS ORDERED: HOME MED LIST COMPLETE! XX SCH (15:50)
[2021-10-17] MEDS ORDERED: LevoFLOXacin IV 750 MG in IV 1 EA IV ONE (15:55)
[2021-10-17] MEDS ORDERED: ACETAMINOPHEN TAB 650MG DOSE (2X325MG) PO PRN (17:00)
[2021-10-17] MEDS ORDERED: ONDANSETRON 4MG/2ML VIAL IV PRN (17:00)
--- OUTSIDE RECORDS SUMMARY | 2021-10-17 17:16 | CCD ---
Author Author [facility] Address Unknown Phone Unavailable Support Name Relationship Address Phone Beatrice Boyer Next Of Kin [address] [place] [phone] Imelda Benjamin Next Of Kin Unknown Unavailable Victor Hugo PADRONPLynn Next Of Kin [address] [place] [phone] Brigid Amador DMD Next Of Kin [address] [place] [phone] Leslie INFORMATION SECURITY RISK ANALYST-C, Heidi Next Of Kin [address] [place], [place] [phone] Lam RPA-C, Bri Next Of Kin [address] [place] [phone] Leslie INFORMATION SECURITY RISK ANALYST-C INFORMATION SECURITY RISK ANALYST-C, Heidi Next Of Kin [address] [place] [phone] Neva Elias Next Of Kin [address] [place] [address] Jm CHACON, Wu Mendoza Next Of Kin [address] [place] [phone] "" Next Of Kin [address] [place] [address] ST Next Of Kin Unknown Unavailable CHILD Next Of Kin Unknown Unavailable DISABLED Next Of Kin Unknown Unavailable UE Next Of Kin Unknown Unavailable SUMEET BENJAMIN Next Of Kin [address] [address] Wu BENJAMIN Next Of Kin [address] [place] [address] Sumeet Benjamin ECON [address] [place] [address] Unavailable Chu, Imel[address] [address] Unavailable Care Team Providers Care Clerical Adjudicator Name Role Phone Mila Piña MD Unavailable [...] Unavailable Mila Piña MD Unavailable Unavailable Mila iPña MD Unavailable Unavailable Mila Piña MD Unavailable [...] is protected by Article 27-F of the [facility] Public Health law. If you continue you may have access to information: Regarding HIV / AIDS; Provided by facilities licensed or operated by the [facility] Office of Mental Health; or Provided by the [facility] Office for People With Developmental Disabilities. If such information is present, then the following [facility] mandated warning applies: This information has [...] law may result in a fine or senior care sentence or both. A general authorization for the release of medical or other information is NOT sufficient authorization for further disc losure. Family History Family Member Name Family Member Gender Family Member Status Date o f Status Description Data Source(s) Unknown Male Problem [facility] ([facility]) Encounters Encounter Providers Location Date Indications Data Source(s ) Shayna Lou PA-C: [address], [place] [address], Ph. Attender: Shayna GONZALEZ [facility] Medical 06/22/2021 12:00:00 AM EDT [place] ([facility]) Jones Piña MD: [address], [place] [address], Ph. Attender: Jones Piña MD [facility] Medical 06/15/2021 12:00:00 AM EDT [place] ([facility]) Jones Piña MD: [address] [place] [address], Ph. Attender: Jones Piña MD [facility] Medical 06/15/2021 12:00:00 AM EDT [place] ([facility]) Shayna Lou PA-C: [address], [place] [address], Ph. Attender: Shayna GONZALEZ [facility] Medical 05/04/2021 12:00:00 AM EDT [place] ([facility]) Shayna Lou PA-C: [address], [place] [address], Ph. Attender: Shayna GONZALEZ [facility] Medical 05/04/2021 12:00:00 AM EDT [place] ([facility]) Shayna Lou PA-C: [address], [place] [address], Ph. Attender: Shayna GONZALEZ [facility] Medical 05/04/2021 12:00:00 AM EDT [place] ([facility]) Unknown [address] [facility] [address] 10/24/2020 12:00:00 AM EST [email or web address] (Formerly [facility]) Outpatient FP 09/20/2020 12:22:00 PM EST [facility] Shayna Lou PA-C: [address], [place] [address], Ph. Attender: Shayna GONZALEZ [facility] Medical 09/20/2020 12:00:00 AM EST [place] ([facility]) Shayna Lou PA-C: [address], [place] [address], Ph. Attender: Shayna GONZALEZ [facility] Medical 09/20/2020 12:00:00 AM EST [place] ([facility]) Shayna Lou PA-C: [address], [place] [address], Ph. Attender: Shayna GONZALEZ [facility] Medical 09/20/2020 12:00:00 AM EST [place] ([facility]) Shayna Lou PA-C: [address], [place] [address], Ph. Attender: Shayna GONZALEZ [facility] Medical 09/20/2020 12:00:00 AM EST [place] ([facility]) Immunizations Vaccine Date Status Description Data Source(s) COVID-19 VACCINE Pfizer 10/04/2021 12:00:00 AM EST completed [facility] Vaccine Series Complete: NOThis Data was Submitted to [facility]. Tdap 06/22/2021 10:48:36 AM EDT completed 06/22/2021 0.5 mL [place] ([facility]) New in 2011. IIV4 09/20/2020 02:11:00 PM EST completed .5 mL [place] ([facility]) New in 2011. IIV4 09/20/2020 02:11:00 PM EST completed .5 mL [place] ([facility]) New in 2011. IIV4 09/20/2020 02:11:00 PM EST completed .5 mL [place] ([facility]) Medications Medication Brand Name Start Date [...] completed levothyroxine sodium 0.15 MG Oral Tablet [place] ([facility]) Levofloxacin 750 MG Oral Tablet levoflox acin 750 mg tablet TAKE ONE TABLET BY MOUTH EVERY DAY AT 0600 levofloxacin 750 mg tablet TAKE ONE TABL ET BY MOUTH EVERY DAY AT 0600 completed levo floxacin 750 MG Oral Tablet [place] ([facility]) Mupirocin 0.02 MG/MG Topical Ointment mu pirocin 2 % topical ointment APPLY TO AFFECTED AREA S TOPICALLY THREE TIMES A DAY mupirocin 2 % topical ointment APPLY TO AFFECTED AREA S TOPICALLY THREE TIMES A DAY completed mupirocin 0.02 MG/MG Topical Ointment [place] ([facility]) Prednisone 20 MG Oral Tablet prednisone 20 [...] completed prednisone 20 MG Oral Tablet [place] ([facility]) Ciprofloxacin 3 MG/ML / Dexamethasone 1 MG/ML Otic Suspension [Ciprodex] Ciprodex 0.3 %-0.1 % ear drops,suspension INSTILL FOUR DROPS IN LEFT EAR TWICE A DAY Ciprodex 0.3 %-0.1 % ear drops,suspensio n INSTILL FOUR DROPS IN LEFT EAR TWICE A DAY completed ci profloxacin 3 MG/ML / dexamethasone 1 MG/ML Otic Suspension [Ciprodex] [place] ([facility]) Mupirocin 0.02 MG/MG Topical Ointment mu pirocin 2 % topical ointment APPLY TO AFFECTED AREA S TOPICALLY THREE TIMES A DAY mupirocin 2 % topical ointment APPLY TO AFFECTED AREA S TOPICALLY THREE TIMES A DAY completed mupirocin 0.02 MG/MG Topical Ointment [place] ([facility]) benzonatate 100 MG Oral Capsule benzonat ate 100 mg capsule TAKE ONE CAPSULE BY MOUTH TWICE A DAY benzonatate 100 mg capsule TAKE ONE CAPS ULE BY MOUTH TWICE A DAY completed benzonatate 100 MG Oral Capsule [place] ([facility]) pantoprazole 40 MG Delayed Release Oral Tablet pantoprazole 40 mg tablet,delayed release TAKE ONE TABLET BY MOUTH EVERY DAY pantoprazole 40 mg tablet,delayed release TAKE ONE TABLET BY MOUTH EVERY DAY completed pantoprazole 40 MG Delayed Release Oral Tablet [place] ([facility]) pantoprazole 40 MG Delayed Release Oral Tablet pantoprazole 40 mg tablet,delayed release TAKE ONE TABLET BY MOUTH EVERY DAY pantoprazole 40 mg tablet,delayed release TAKE ONE TABLET BY MOUTH EVERY DAY completed pantoprazole 40 MG Delayed Release Oral Tablet [place] ([facility]) pantoprazole 40 MG Delayed Release Oral Tablet pantoprazole 40 mg tablet,delayed release TAKE ONE TABLET BY MOUTH EVERY DAY pantoprazole 40 mg tablet,delayed release TAKE ONE TABLET BY MOUTH EVERY DAY completed pantoprazole 40 MG Delayed Release Oral Tablet [place] ([facility]) Ciprofloxacin 3 MG/ML / Dexamethasone 1 MG/ML Otic Suspension [Ciprodex] Ciprodex 0.3 %-0.1 % ear drops,suspension INSTILL FOUR DROPS IN LEFT EAR TWICE A DAY Ciprodex 0.3 %-0.1 % ear drops,suspensio n INSTILL FOUR DROPS IN LEFT EAR TWICE A DAY completed ci profloxacin 3 MG/ML / dexamethasone 1 MG/ML Otic Suspension [Ciprodex] [place] ([facility]) Clindamycin 300 MG Oral Capsule clindamy josé HCl 300 mg capsule TAKE ONE CAPSULE BY MOUTH THREE TIMES A DAY clindamycin HCl 300 mg capsule TAKE ONE CAPSULE BY MOUTH THREE TIMES A DAY completed clindamycin 300 MG Oral Capsule [place] ([facility]) Clindamycin 300 MG Oral Capsule clindamy josé HCl 300 mg capsule TAKE ONE CAPSULE BY MOUTH THREE TIMES A DAY clindamycin HCl 300 mg capsule TAKE ONE CAPSULE BY MOUTH THREE TIMES A DAY completed clindamycin 300 MG Oral Capsule [place] ([facility]) Acetaminophen 325 MG Oral Tablet acetami nophen 325 mg tablet TAKE TWO TABLETS BY MOUTH EVERY 4 HOURS NEEDED FOR PAIN OR FEVER acetaminophen 325 mg tablet TAKE TWO TABLETS BY MOUTH EVERY 4 HOURS NEEDED FOR PAIN OR FEVER completed acetaminophen 325 MG Oral Tablet [place] ([facility]) Docusate Sodium 100 MG Oral Capsule Stoo l Softener 100 mg capsule TAKE ONE CAPSULE BY MOUTH TWICE A DAY Stool Softener 100 mg capsule TAKE ONE C APSULE BY MOUTH TWICE A DAY completed docu sate sodium 100 MG Oral Capsule [place] ([facility]) Acetaminophen 325 MG Oral Tablet acetami nophen 325 mg tablet TAKE TWO TABLETS BY MOUTH EVERY 4 HOURS NEEDED FOR PAIN OR FEVER acetaminophen 325 mg tablet TAKE TWO TABLETS BY MOUTH EVERY 4 HOURS NEEDED FOR PAIN OR FEVER completed acetaminophen 325 MG Oral Tablet [place] ([facility]) Levofloxacin 750 MG Oral Tablet levoflox acin 750 mg tablet TAKE ONE TABLET BY MOUTH EVERY DAY AT 0600 levofloxacin 750 mg tablet TAKE ONE TABL ET BY MOUTH EVERY DAY AT 0600 completed levo floxacin 750 MG Oral Tablet [place] ([facility]) Acetaminophen 325 MG Oral Tablet acetami nophen 325 mg tablet TAKE TWO TABLETS BY MOUTH EVERY 4 HOURS NEEDED FOR PAIN OR FEVER acetaminophen 325 mg tablet TAKE TWO TABLETS BY MOUTH EVERY 4 HOURS NEEDED FOR PAIN OR FEVER completed acetaminophen 325 MG Oral Tablet [place] ([facility]) benzonatate 100 MG Oral Capsule benzonat ate 100 mg capsule TAKE ONE CAPSULE BY MOUTH TWICE A DAY benzonatate 100 mg capsule TAKE ONE CAPS ULE BY MOUTH TWICE A DAY completed benzonatate 100 MG Oral Capsule [place] ([facility]) Prednisone 20 MG Oral Tablet prednisone 20 [...] completed prednisone 20 MG Oral Tablet [place] ([facility]) Mupirocin 0.02 MG/MG Topical Ointment mu pirocin 2 % topical ointment APPLY TO AFFECTED AREA S TOPICALLY THREE TIMES A DAY mupirocin 2 % topical ointment APPLY TO AFFECTED AREA S TOPICALLY THREE TIMES A DAY completed mupirocin 0.02 MG/MG Topical Ointment [place] ([facility]) Levothyroxine Sodium 0.15 MG Oral Tablet levothyroxine 150 mcg tablet TAKE 1 TABLET BY MOUTH ON AN EMPTY STOMACH IN THE MORNING levothyroxine 150 mcg tablet TAKE 1 TABLET BY MOUTH ON AN EMPTY STOMACH IN THE MORNING completed levothyroxine sodium 0.15 MG Oral Tablet [place] ([facility]) Docusate Sodium 100 MG Oral Capsule Stoo l Softener 100 mg capsule TAKE ONE CAPSULE BY MOUTH TWICE A DAY Stool Softener 100 mg capsule TAKE ONE C APSULE BY MOUTH TWICE A DAY completed docu sate sodium 100 MG Oral Capsule [place] ([facility]) pantoprazole 40 MG Delayed Release Oral Tablet pantoprazole 40 mg tablet,delayed release TAKE ONE TABLET BY MOUTH EVERY DAY pantoprazole 40 mg tablet,delayed release TAKE ONE TABLET BY MOUTH EVERY DAY completed pantoprazole 40 MG Delayed Release Oral Tablet [place] ([facility]) Levothyroxine Sodium 0.15 MG Oral Tablet levothyroxine 150 mcg tablet TAKE 1 TABLET BY MOUTH ON AN EMPTY STOMACH IN THE MORNING levothyroxine 150 mcg tablet TAKE 1 TABLET BY MOUTH ON AN EMPTY STOMACH IN THE MORNING completed levothyroxine sodium 0.15 MG Oral Tablet [place] ([facility]) Ciprofloxacin 3 MG/ML / Dexamethasone 1 MG/ML Otic Suspension [Ciprodex] Ciprodex 0.3 %-0.1 % ear drops,suspension INSTILL FOUR DROPS IN LEFT EAR TWICE A DAY Ciprodex 0.3 %-0.1 % ear drops,suspensio n INSTILL FOUR DROPS IN LEFT EAR TWICE A DAY completed ci profloxacin 3 MG/ML / dexamethasone 1 MG/ML Otic Suspension [facility] Acet[facility] 325 MG Oral Tablet acetami nophen 325 mg tablet TAKE TWO TABLETS BY MOUTH EVERY 4 HOURS NEEDED FOR PAIN OR FEVER acetaminophen 325 mg tablet TAKE TWO TABLETS BY MOUTH EVERY 4 HOURS NEEDED FOR PAIN OR FEVER completed acetaminophen 325 MG Oral Tablet [place] ([facility]) Levofloxacin 750 MG Oral Tablet levoflox acin 750 mg tablet TAKE ONE TABLET BY MOUTH EVERY DAY AT 0600 levofloxacin 750 mg tablet TAKE ONE TABL ET BY MOUTH EVERY DAY AT 0600 completed levo floxacin 750 MG Oral Tablet [place] ([facility]) Levothyroxine Sodium 0.15 MG Oral Tablet levothyroxine 150 mcg tablet TAKE 1 TABLET BY MOUTH ON AN EMPTY STOMACH IN THE MORNING levothyroxine 150 mcg tablet TAKE 1 TABLET BY MOUTH ON AN EMPTY STOMACH IN THE MORNING completed levothyroxine sodium 0.15 MG Oral Tablet [place] ([facility]) benzonatate 100 MG Oral Capsule benzonat ate 100 mg capsule TAKE ONE CAPSULE BY MOUTH TWICE A DAY benzonatate 100 mg capsule TAKE ONE CAPS ULE BY MOUTH TWICE A DAY completed benzonatate 100 MG Oral Capsule [place] ([facility]) Prednisone 20 MG Oral Tablet prednisone 20 [...] completed prednisone 20 MG Oral Tablet [place] ([facility]) Docusate Sodium 100 MG Oral Capsule Stoo l Softener 100 mg capsule TAKE ONE CAPSULE BY MOUTH TWICE A DAY Stool Softener 100 mg capsule TAKE ONE C APSULE BY MOUTH TWICE A DAY completed docu sate sodium 100 MG Oral Capsule [place] ([facility]) Prednisone 20 MG Oral Tablet prednisone 20 [...] completed prednisone 20 MG Oral Tablet [place] ([facility]) Levofloxacin 750 MG Oral Tablet levoflox acin 750 mg tablet TAKE ONE TABLET BY MOUTH EVERY DAY AT 0600 levofloxacin 750 mg tablet TAKE ONE TABL ET BY MOUTH EVERY DAY AT 0600 completed levo floxacin 750 MG Oral Tablet [place] ([facility]) Docusate Sodium 100 MG Oral Capsule Stoo l Softener 100 mg capsule TAKE ONE CAPSULE BY MOUTH TWICE A DAY Stool Softener 100 mg capsule TAKE ONE C APSULE BY MOUTH TWICE A DAY completed docu sate sodium 100 MG Oral Capsule [place] ([facility]) Clindamycin 300 MG Oral Capsule clindamy josé HCl 300 mg capsule TAKE ONE CAPSULE BY MOUTH THREE TIMES A DAY clindamycin HCl 300 mg capsule TAKE ONE CAPSULE BY MOUTH THREE TIMES A DAY completed clindamycin 300 MG Oral Capsule [place] ([facility]) Mupirocin 0.02 MG/MG Topical Ointment mu pirocin 2 % topical ointment APPLY TO AFFECTED AREA S TOPICALLY THREE TIMES A DAY mupirocin 2 % topical ointment APPLY TO AFFECTED AREA S TOPICALLY THREE TIMES A DAY completed mupirocin 0.02 MG/MG Topical Ointment [place] ([facility]) benzonatate 100 MG Oral Capsule benzonat ate 100 mg capsule TAKE ONE CAPSULE BY MOUTH TWICE A DAY benzonatate 100 mg capsule TAKE ONE CAPS ULE BY MOUTH TWICE A DAY completed benzonatate 100 MG Oral Capsule [place] ([facility]) Ciprofloxacin 3 MG/ML / Dexamethasone 1 MG/ML Otic Suspension [Ciprodex] Ciprodex 0.3 %-0.1 % ear drops,suspension INSTILL FOUR DROPS IN LEFT EAR TWICE A DAY Ciprodex 0.3 %-0.1 % ear drops,suspensio n INSTILL FOUR DROPS IN LEFT EAR TWICE A DAY completed ci profloxacin 3 MG/ML / dexamethasone 1 MG/ML Otic Suspension [Ciprodex] [place] ([facility]) Insurance Providers Payer name Policy type / Coverage type Policy ID Covered libertarian ID Covered libertarian's relationship to kim Policy Kim Plan Information MEDICAID M [id number] Self [id number] Medicaid P [id number] S [id number] Medicaid P [id number] S [id number] MEDICAID [id number] SP [id number] MEDICAID [id number] SP [id number] Medicaid P [id number] S [id number] MEDICAID [id number] SP [id number] Medicaid P [id number] S [id number] Medicaid P [id number] S [id number] Medicaid P [id number] S [id number] ANSI-Medicaid [id number] Medicaid Medicaid [id number] S elf [id number] Medicaid Medicaid [id number] S elf [id number] ANSI-Medicaid [id number] Medicaid Medicaid [id number] S elf [id number] Medicaid Medicaid [id number] S elf [id number] Medicaid Medicaid [id number] S elf [id number] Medicaid Medicaid [id number] S elf [id number] Medicaid Medicaid [id number] S elf [id number] Medicaid Medicaid [id number] S elf [id number] Medicaid [place] [id number] Self [id number] [place] Medicaid [id number] Self PROGRESSIVE CO NO FAULT [id number] SP [id number] PROGRESSIVE CO NO FAULT O [id number] S [id number] SELF PAY O UNAVAILABLE [id number] S UNAVAILA BLE MEDICAID W [id number] S [id number] MEDICAID W [id number] S [id number] MEDICAID REF AMBULAT W [id number] S [id number] [place] [id number] SP [id number] [place] [id number] SP [id number] MEDICAID [id number] SP [id number] MEDICAID M [id number] S [id number] ANSI-Medicaid [id number] ANSI-Medicaid [id number] ANSI-Medicaid [id number] ANSI-Medicaid [id number] ANSI-Medicaid [id number] ANSI-Medicaid [id number] Problems, Conditions, and Diagnoses Code Display Name Description Problem Type Effective Dates Data Source(s) [id number] Impacted cerumen in left ear Impacted Cerumen i n Left Ear Problem 06/10/2016 12:00:00 AM EDT - 09/20/2020 12:00:00 AM [place] ([facility]) [id number] Impacted cerumen in left ear Impacted Cerumen i n Left Ear Problem 06/10/2016 12:00:00 AM EDT - 09/20/2020 12:00:00 AM [facility] [facility] ([facility]) [id number] Impacted cerumen in left ear Impacted Cerumen i n Left Ear Problem 06/10/2016 12:00:00 AM EDT - 09/20/2020 12:00:00 AM [facility] ([facility]) [id number] Impacted cerumen in left ear Impacted Cerumen i n Left Ear Problem 06/10/2016 12:00:00 AM EDT - 09/20/2020 12:00:00 AM [facility] ([facility]) [id number] Disorder of upper respiratory system Dis order of Upper Respiratory System Problem 11/22/2015 12:00:00 AM EST - 09/20/2020 12:00:00 AM EST [place] ([facility]) [id number] Disorder of upper respiratory system Dis order of Upper Respiratory System Problem 11/22/2015 12:00:00 AM EST - 09/20/2020 12:00:00 AM EST [place] ([facility]) [id number] Disorder of upper respiratory system Dis order of Upper Respiratory System Problem 11/22/2015 12:00:00 AM EST - 09/20/2020 12:00:00 AM EST [place] ([facility]) [id number] Disorder of upper respiratory system Dis order of Upper Respiratory System Problem 11/22/2015 12:00:00 AM EST - 09/20/2020 12:00:00 AM EST [place] ([facility]) [id number] Finding of Mantoux test Finding of Mantoux Test Proble 09/15/2015 12:00:00 AM EDT - 09/20/2020 12:00:00 AM EST [place] ([facility]) [id number] Finding of Mantoux test Finding of Mantoux Test Proble 09/15/2015 12:00:00 AM EDT - 09/20/2020 12:00:00 AM EST [place] ([facility]) [id number] Finding of Mantoux test Finding of Mantoux Test Proble 09/15/2015 12:00:00 AM EDT - 09/20/2020 12:00:00 AM EST [place] ([facility]) [id number] Finding of Mantoux test Finding of Mantoux Test Proble m 09/15/2015 12:00:00 AM EDT - 09/20/2020 12:00:00 AM EST [place] ([facility]) [id number] Influenza vaccine needed Influenza Vaccine Needed Pro blem 08/22/2015 12:00:00 AM EDT - 09/20/2020 12:00:00 AM EST [place] ([facility]) [id number] Backache Backache Problem 08/22/2015 12:0 0:00 AM EDT - 09/20/2020 12:00:00 AM EST [place] ([facility]) [id number] Influenza vaccine needed Influenza Vaccine Needed Pro blem 08/22/2015 12:00:00 AM EDT - 09/20/2020 12:00:00 AM EST [place] ([facility]) [id number] Backache Backache Problem 08/22/2015 12:0 0:00 AM EDT - 09/20/2020 12:00:00 AM EST [place] ([facility]) [id number] Influenza vaccine needed Influenza Vaccine Needed Pro blem 08/22/2015 12:00:00 AM EDT - 09/20/2020 12:00:00 AM EST [place] ([facility]) [id number] Backache Backache Problem 08/22/2015 12:0 0:00 AM EDT - 09/20/2020 12:00:00 AM EST [place] ([facility]) [id number] Influenza vaccine needed Influenza Vaccine Needed Pro blem 08/22/2015 12:00:00 AM EDT - 09/20/2020 12:00:00 AM EST [place] ([facility]) [id number] Backache Backache Problem 08/22/2015 12:0 0:00 AM EDT - 09/20/2020 12:00:00 AM EST [place] ([facility]) [id number] Disorder of ear Disorder of Ear Problem 5 12:00:00 AM EDT - 05/04/2021 12:00:00 AM EDT [place] ([facility]) [id number] Onychomycosis Onychomycosis Problem 05/22/2015 12 :00:00 AM EDT - 09/20/2020 12:00:00 AM EST [facility] ([facility]) [id number] Onychomycosis Onychomycosis Problem 05/22/2015 12 :00:00 AM EDT - 09/20/2020 12:00:00 AM EST [place] ([facility]) [id number] Disorder of ear Disorder of Ear Problem 5 12:00:00 AM EDT - 05/04/2021 12:00:00 AM EDT [place] ([facility]) [id number] Onychomycosis Onychomycosis Problem 05/22/2015 12 :00:00 AM EDT - 09/20/2020 12:00:00 AM EST [place] ([facility]) [id number] Disorder of ear Disorder of Ear Problem 5 12:00:00 AM EDT - 05/04/2021 12:00:00 AM EDT [place] ([facility]) [id number] Onychomycosis Onychomycosis Problem 05/22/2015 12 :00:00 AM EDT - 09/20/2020 12:00:00 AM EST [place] ([facility]) [id number] Eruption Eruption Problem 09/22/2014 12:0 0:00 AM EST - 05/04/2021 12:00:00 AM EDT [facility] ([facility]) [id number] Eruption Eruption Problem 09/22/2014 12:0 0:00 AM EST - 05/04/2021 12:00:00 AM EDT [facility] ([facility]) [id number] Eruption Eruption Problem 09/22/2014 12:0 0:00 AM EST - 05/04/2021 12:00:00 AM EDT [facility] ([facility]) [id number] Finding by site Finding by Site Problem 3 12:00:00 AM EDT - 09/20/2020 12:00:00 AM EST [facility] ([facility] er) [id number] Finding by site Finding by Site Problem 3 12:00:00 AM EDT - 09/20/2020 12:00:00 AM EST ABELARDO ([facility] er) [id number] Finding by site Finding by Site Problem 3 12:00:00 AM EDT - 09/20/2020 12:00:00 AM EST ABELARDO ([facility] er) [id number] Finding by site Finding by Site Problem 3 12:00:00 AM EDT - 09/20/2020 12:00:00 AM EST ABELARDO ([facility] er) [id number] Eruption Eruption Problem 08/12/2013 12:0 0:00 AM EDT - 09/20/2020 12:00:00 AM EST ABELARDO ([facility] er) [id number] Eruption Eruption Problem 08/12/2013 12:0 0:00 AM EDT - 09/20/2020 12:00:00 AM EST ABELARDO ([facility] er) [id number] Eruption Eruption Problem 08/12/2013 12:0 0:00 AM EDT - 09/20/2020 12:00:00 AM EST ABELARDO ([facility] er) [id number] Eruption Eruption Problem 08/12/2013 12:0 0:00 AM EDT - 09/20/2020 12:00:00 AM EST ABELARDO ([facility] er) [id number] Clinical finding Clinical Finding Problem 013 12:00:00 AM EDT - 05/04/2021 12:00:00 AM EDT ABELARDO ([facility] er) [id number] SNOMED CT Concept SNOMED CT Concept Problem 07/06 12:00:00 AM EDT - 09/20/2020 12:00:00 AM EST ABELARDO ([facility] er) [id number] Dermatophytosis Dermatophytosis Problem 3 12:00:00 AM EDT - 09/20/2020 12:00:00 AM EST ABELARDO ([facility] er) [id number] SNOMED CT Concept SNOMED CT Concept Problem 07/06 12:00:00 AM EDT - 09/20/2020 12:00:00 AM EST ABELARDO ([facility] er) [id number] Dermatophytosis Dermatophytosis Problem 3 12:00:00 AM EDT - 09/20/2020 12:00:00 AM EST ABELARDO ([facility] er) [id number] Clinical finding Clinical Finding Problem 013 12:00:00 AM EDT - 05/04/2021 12:00:00 AM EDT ABELARDO ([facility] er) [id number] SNOMED CT Concept SNOMED CT Concept Problem 07/06 12:00:00 AM EDT - 09/20/2020 12:00:00 AM EST ABELARDO ([facility] er) [id number] Dermatophytosis Dermatophytosis Problem 3 12:00:00 AM EDT - 09/20/2020 12:00:00 AM EST ABELARDO ([facility] er) [id number] Clinical finding Clinical Finding Problem 013 12:00:00 AM EDT - 05/04/2021 12:00:00 AM EDT ABELARDO ([facility] er) [id number] SNOMED CT Concept SNOMED CT Concept Problem 07/06 12:00:00 AM EDT - 09/20/2020 12:00:00 AM EST ABELARDO ([facility] er) [id number] Dermatophytosis Dermatophytosis Problem 3 12:00:00 AM EDT - 09/20/2020 12:00:00 AM EST ABELARDO ([facility] er) [id number] Clinical finding Clinical Finding Problem 013 12:00:00 AM EDT - 05/04/2021 12:00:00 AM EDT ABELARDO ([facility] er) [id number] Clinical finding Clinical Finding Problem 013 12:00:00 AM EDT - 09/20/2020 12:00:00 AM EST ABELARDO ([facility] er) [id number] Clinical finding Clinical Finding Problem 013 12:00:00 AM EDT - 09/20/2020 12:00:00 AM EST ABELARDO ([facility] er) [id number] Clinical finding Clinical Finding Problem 013 12:00:00 AM EDT - 05/04/2021 12:00:00 AM EDT ABELARDO ([facility] er) [id number] Clinical finding Clinical Finding Problem 013 12:00:00 AM EDT - 09/20/2020 12:00:00 AM EST ABELARDO ([facility]) [id number] Clinical finding Clinical Finding Problem 013 12:00:00 AM EDT - 05/04/2021 12:00:00 AM EDT ABELARDO ([facility] er) [id number] Clinical finding Clinical Finding Problem 013 12:00:00 AM EDT - 09/20/2020 12:00:00 AM EST ABELARDO ([facility]) Surgeries/Procedures No Information Results ID Date Data Source [id number] 06/15/2021 12:00:00 AM EDT [facility]) Name Value Range Interpretation Code Description Data Riddhi rce(s) Supporting Document(s) Hemoglobin A1c/Hemoglobin.total in Blood 5.6 %_of_total_HGB <5.7 Hemoglobin a1C ABELARDO ([facility]) Glucose mean value [Mass/volume] in Blood Estimated fr om glycated hemoglobin 114 (calc) EAG (mg/dL) [place] ([facility]) Glucose mean value [Moles/volume] in Blood Estimated f rom glycated hemoglobin 6.3 (calc) EAG (mmol/L) [place] ([facility]) ID Date Data Source [id number] 06/15/2021 12:00:00 AM EDT [facility]) Name Value Range Interpretation Code Description Data Riddhi rce(s) Supporting Document(s) Calcidiol [Mass/volume] in Serum or Plasma 27 NG/mL 30-100 Below low normal Vitamin D,25-Oh,total,ia [place] ([facility]) ID Date Data Source [id number] 06/15/2021 12:00:00 AM EDT [facility]) Name Value Range Interpretation Code Description Data Riddhi rce(s) Supporting Document(s) Leukocytes [#/volume] in Blood by Automated count 6.8 thousand/uL 3 .8-10.8 White Blood Cell Count ABELARDO ([facility]) Erythrocytes [#/volume] in Blood by Automated count 5.24 million/uL 4.20-5.80 Red Blood Cell Count ABELARDO ([facility]) Hematocrit [Volume Fraction] of Blood by Automated count 45.2 % 38.5-50.0 Hematocrit ABELARDO ([facility]) Erythrocyte mean corpuscular volume [Entitic volume] by Auto mated count 86.3 fL 80.0-100.0 Mcv ABELARDO ([facility]) Hemoglobin [Mass/volume] in Blood 15.2 g/dL 13.2-17.1 He moglobin ABELARDO ([facility]) Erythrocyte mean corpuscular hemoglobin concentration [Mass/volume] by Automated count 33.6 g/dL 32.0-36.0 Mchc ABELARDO ([facility]) Erythrocyte mean corpuscular hemoglobin [Entitic mass] by Automated count 29.0 pg 27.0-33.0 Mch ABELARDO ([facility]) Erythrocyte distribution width [Ratio] by Automated count 14.4 % 11.0-15.0 Rdw ABELARDO ([facility]) Platelets [#/volume] in Blood by Automated count 255 thousand/uL 14 0-400 Platelet Count ABELARDO ([facility]) Neutrophils [#/volume] in Blood by Automated count 4740 cells/uL 15 00-7800 Absolute Neutrophils ABELARDO ([facility]) Platelet mean volume [Entitic volume] in Blood by [place] 10.3 f L 7.5-12.5 Mpv ABELARDO ([facility]) Monocytes [#/volume] in Blood by Automated count 666 cells/uL 200-9 50 Absolute Monocytes ABELARDO ([facility]) Eosinophils [#/volume] in Blood by Automated count 27 cells/uL 15- 500 Absolute Eosinophils ABELARDO ([facility]) Lymphocytes [#/volume] in Blood by Automated count 1319 cells/uL 85 0-3900 Absolute Lymphocytes ABELARDO ([facility]) Neutrophils/100 leukocytes in Blood by Automated count 69.7 % 38-80 Neutrophils AB[place]ARDO ([facility]) Basophils [#/volume] in Blood by Automated count 48 cells/uL 0-200 Absolute Basophils ABELARDO ([facility]) Lymphocytes/100 leukocytes in Blood by Automated count 19.4 % 15-49 Lymphocytes AB[place]ARDO ([facility]) Monocytes/100 leukocytes in Blood by Automated count 9.8 % 0-13 Monocytes ABELARDO ([facility]) Eosinophils/100 leukocytes in Blood by Automated count 0.4 % 0-8 Eosinophils AB[place]ARDO ([facility]) Basophils/100 leukocytes in Blood by Automated count 0.7 % 0-2 Basophils AB[place]ARDO ([facility]) ID Date Data Source [id number] 06/15/2021 12:00:00 AM EDT [facility]) Name Value Range Interpretation Code Description Data Riddhi rce(s) Supporting Document(s) Glucose [Mass/volume] in Serum or Plasma 100 mg/dL 65-99 Above high normal Glucose ABELARDO ([facility]) Urea nitrogen [Mass/volume] in Serum or Plasma 16 mg/dL 7-25 Urea Nitrogen (BUN) ABELARDO ([facility]) Creatinine [Mass/volume] in Serum or Plasma 0.95 mg/dL 0.60-1.35 Creatinine ABELARDO ([facility]) Glomerular filtration rate/1.73 sq M.pre dicted among non-blacks [Volume Rate/Area] in Serum, Plasma or Blood by Creatinine-based formula (CKD-EPI) 110 mL/min/1.73m2 > or = 60 eGFR Non-afr. [place] ABELARDO ([facility]) Urea nitrogen/Creatinine [Mass Ratio] in Serum or Plasma not applic able 6-22 BUN/creatinine Ratio ABELARDO ([facility]) Glomerular filtration rate/1.73 sq M.pre dicted among blacks [Volume Rate/Area] in Serum, Plasma or Blood by Creatinine-based formula (CKD-EPI) 128 mL/min/1.73m2 > or = 60 eGFR ABELARDO ([facility]) Sodium [Moles/volume] in Serum or Plasma 139 mmol/L 135-146 Sodium ABELARDO ([facility]) Potassium [Moles/volume] in Serum or Plasma 4.3 mmol/L 3.5-5.3 Potassium ABELARDO ([facility]) Chloride [Moles/volume] in Serum or Plasma 105 mmol/L 98-110 Chloride [place] ([facility]) Calcium [Mass/volume] in Serum or Plasma 8.5 mg/dL 8.6-10.3 Below low normal Calcium [place] ([facility]) Carbon dioxide, total [Moles/volume] in Serum or Plasma 27 mmol/L 20-32 Carbon Dioxide [place] ([facility]) Protein [Mass/volume] in Serum or Plasma 6.1 g/dL 6.1-8.1 Protein, Total [facility]) Globulin [Mass/volume] in Serum by calculation 2.4 g/dL_(calc) 1.9- 3.7 Globulin [place] ([facility]) Albumin [Mass/volume] in Serum or Plasma 3.7 g/dL 3.6-5.1 Albumin [facility]) Bilirubin.total [Mass/volume] in Serum or Plasma 0.5 mg/dL 0.2-1 .2 Bilirubin, Total [place] ([facility]) Albumin/Globulin [Mass Ratio] in Serum or Plasma 1.5 (calc) 1.0-2 .5 Albumin/globulin Ratio [place] ([facility]) Alkaline phosphatase [Enzymatic activity/volume] in Serum or Plasma 85 U/L 36-130 Alkaline Phosphatase [place] ([facility]) Alanine aminotransferase [Enzymatic activity/volume] in Seru m or Plasma 11 U/L 9-46 Alt [place] ([facility]) Aspartate aminotransferase [Enzymatic activity/volume] in Serum or Plasma 14 U/L 10-40 Ast [place] ([facility]) ID Date Data Source [id number] 06/15/2021 12:00:00 AM EDT [facility]) Name Value Range Interpretation Code Description Data Riddhi rce(s) Supporting Document(s) Thyrotropin [Units/volume] in Serum or Plasma 2.43 mIU/L 0.40-4.50 Tsh [facility]) Thyroxine (T4) free [Mass/volume] in Serum or Plasma 1.6 NG/dL 0 .8-1.8 T4, Free [place] ([facility]) ID Date Data Source [id number] 06/15/2021 12:00:00 AM EDT ABELARDO ([facility]) Name Value Range Interpretation Code Description Data Riddhi rce(s) Supporting Document(s) Cholesterol [Mass/volume] in Serum or Plasma 233 mg/dL <200 Above high normal Cholesterol, Total [place] ([facility]) Cholesterol in HDL [Mass/volume] in Serum or Plasma 44 mg/dL > or = 40 HDL Cholesterol ABELARDO ([facility]) Triglyceride [Mass/volume] in Serum or Plasma 162 mg/dL <150 Above high normal Triglycerides ABELARDO ([facility]) Cholesterol in LDL [Mass/volume] in Serum or Plasma by calculation 159 mg/dL_(calc) Above high normal LDL-cholesterol ABELARDO ([facility]) Cholesterol.total/Cholesterol in HDL [Mass Ratio] in Serum o r Plasma 5.3 (calc) <5.0 Above high normal Chol/hdlc Ratio ABELARDO ([facility]) Cholesterol non HDL [Mass/volume] in Serum or Plasma 189 mg/dL_( calc) <130 Above high normal Non HDL Cholesterol ABELARDO ([facility] er) ID Date Data Source [id number] 09/20/2020 02:05:00 PM EST ABELARDO ([facility]) Name Value Range Interpretation Code Description Data Riddhi rce(s) Supporting Document(s) estimated average glucose 111 mg/dL 60-110 Above high norm al Estimated Average Glucose ABELARDO ([facility]) Hemoglobin A1c/Hemoglobin.total in Blood 5.5 % Hemoglobin a1C [facility]) ID Date Data Source [id number] 09/20/2020 02:05:00 PM EST [place] ([facility]) Name Value Range Interpretation Code Description Data Riddhi rce(s) Supporting Document(s) total 25(oh) vitamin D 21.4 NG/mL 30.0-100.0 Below low normal T otal 25(Oh) Vitamin D AB[place]ARD[place] ([facility]) ID Date Data Source [id number] 09/20/2020 02:05:00 PM EST ABELARDO ([facility]) Name Value Range Interpretation Code Description Data Riddhi rce(s) Supporting Document(s) free T4 1.44 NG/dL 0.76-1.46 Free T4 AB[place]ARD[place] ([facility]) thyroid stimulating hormone 7.020 uIU/mL 0.358-3.740 Above high no rmal Thyroid Stimulating Hormone ABELARDO ([facility]) ID Date Data Source [id number] 09/20/2020 02:05:00 PM EST ABELARDO ([facility]) Name Value Range Interpretation Code Description Data Riddhi rce(s) Supporting Document(s) HDL cholesterol 45 mg/dL >40 HDL Cholesterol ATHE NA ([facility]) non-HDL-C 214 mg/dL Non-hdl-c ABELARDO ([facility]) Cholesterol in LDL [Mass/volume] in Serum or Plasma 182 mg/dL <100 Above high normal LDL Cholesterol ABELARDO ([facility] er) triglycerides level 161 mg/dL <150 Above high normal Triglycer ides Level ABELARDO ([facility]) cholesterol level 259 mg/dL <200 Above high normal Cholesterol Level ABELARDO ([facility]) cholesterol risk ratio <5 Above high normal Choles terol Risk Ratio [place] ([facility]) ID Date Data Source [id number] 09/20/2020 02:05:00 PM EST ABELARDO ([facility]) Name Value Range Interpretation Code Description Data Riddhi rce(s) Supporting Document(s) glucose, fasting 96 mg/dL 70-100 Glucose, Fasting AT [place] ([facility]) creatinine for GFR 0.92 mg/dL 0.70-1.30 Creatinine for GF R ABELARDO ([facility]) blood urea nitrogen 11 mg/dL 7-18 Blood Urea Nitro gen ABELARDO ([facility]) glomerular filtration rate > 60.0 >60 Glomerula r Filtration Rate ABELARDO ([facility]) potassium serum 4.3 mEq/L 3.5-5.1 Potassium Serum ATHE NA ([facility]) sodium level 140 mEq/L 136-145 Sodium Level ABELARDO ([facility]) chloride level 108 mEq/L 98-107 Above high normal Chloride Level ABELARDO ([facility]) calcium level 8.9 mg/dL 8.5-10.1 Calcium Level ABELARDO ( [facility]) anion gap 4 mEq/L 8-16 Below low normal Anion Gap ABELARDO ( [facility]) carbon dioxide level 28 mEq/L 21-32 Carbon Dioxide Level ABELARDO ([facility]) ALT/SGPT 22 U/L 12-78 ALT/SGPT AB[place]ARDO ([facility]) AST/SGOT 18 U/L 7-37 AST/SGOT ABELARDO ([facility]) bilirubin,total 0.6 mg/dL 0.2-1.0 Bilirubin,total ATHE NA ([facility]) alkaline phosphatase 98 U/L 45-117 Alkaline Phosph atase ABELARDO ([facility]) albumin 3.3 gm/dL 3.2-5.2 Albumin AB[place]ARDO ([facility]) albumin/globulin ratio Albumin/globu sneha Ratio AB[place] ([facility]) total protein 6.6 gm/dL 6.4-8.2 Total Protein ABELARDO ( [facility]) ID Date Data Source [id number] 09/20/2020 02:05:00 PM EST ABELARDO ([facility]) Name Value Range Interpretation Code Description Data Riddhi rce(s) Supporting Document(s) white blood count 5.3 10 4.0-10.0 White Blood Count [place] ([facility]) hemoglobin 14.7 g/dL 13.5-17.5 Hemoglobin [place] ([facility]) red blood count 5.22 10 4.30-6.10 Red Blood Count ATHE NA ([facility]) mean corpuscular volume 87.4 fL 80.0-96.0 Mean Corpusc ular Volume AB[place]ARDO ([facility]) mean corpuscular hemoglobin 28.2 pg 27.0-33.0 Mean Cor puscular Hemoglobin ABELARDO ([facility]) hematocrit 45.6 % 42.0-52.0 Hematocrit [place] ([facility]) mean corpuscular HGB conc 32.2 g/dL 32.0-36.5 Mean Corpu scular HGB Conc AB[place] ([facility]) red cell distribution width 13.7 % 11.5-14.5 Red Cell Distribution Width AB[place]O ([facility]) neutrophils % 68.5 % 36.0-66.0 Above high normal Neutrophils % A [place] ([facility]) platelet count, automated 252 10 150-450 Platelet C ount, Automated AB[place] ([facility]) lymph % 20.6 % 24.0-44.0 Below low normal Lymph % ABELARDO ( [facility]) mono % 9.1 % 0.0-5.0 Above high normal [place] % ABELARDO ([facility]) eos % 0.4 % 0.0-3.0 Eos % [place] ([facility]) baso % 0.8 % 0.0-1.0 Baso % AB[place] ([facility]) nucleated red blood cell % 0.0 % 0-0 Nucleated Red Blood Cell % ABELARDO ([facility]) immature granulocyte % 0.6 % 0-3.0 Immature Gran ulocyte % AB[place]ARDO ([facility]) mono # 0.5 10 0.0-0.8 [place] # ABELARDO ([facility]) neutrophils # 3.6 10 1.5-8.5 Neutrophils # [place] ( [facility]) lymph # 1.1 10 1.5-5.0 Below low normal Lymph # ABELARDO ( [facility]) baso # 0.0 10 0.0-0.2 Baso # [place]O ([facility]) eos # 0.0 10 0.0-0.5 Eos # [place]ARDO ([facility]) ID Date Data Source [id number] 09/20/2020 02:05:00 PM EST ABELADRO ([facility]) Name Value Range Interpretation Code Description Data Riddhi rce(s) Supporting Document(s) Hemoglobin A1c/Hemoglobin.total in Blood 5.5 % Hemoglobin a1C [place] ([facility]) estimated average glucose 111 mg/dL 60-110 Above high norm al Estimated Average Glucose [place] ([facility]) ID Date Data Source [id number] 09/20/2020 02:05:00 PM EST ABELARDO ([facility]) Name Value Range Interpretation Code Description Data Riddhi rce(s) Supporting Document(s) total 25(oh) vitamin D 21.4 NG/mL 30.0-100.0 Below low normal T otal 25(Oh) Vitamin D [place] ([facility]) ID Date Data Source [id number] 09/20/2020 02:05:00 PM EST ABELARDO ([facility]) Name Value Range Interpretation Code Description Data Riddhi rce(s) Supporting Document(s) free T4 1.44 NG/dL 0.76-1.46 Free T4 AB[place]ARDO ([facility]) thyroid stimulating hormone 7.020 uIU/mL 0.358-3.740 Above high no rmal Thyroid Stimulating Hormone ABELARDO ([facility]) ID Date Data Source [id number] 09/20/2020 02:05:00 PM EST ABELARDO ([facility]) Name Value Range Interpretation Code Description Data Riddhi rce(s) Supporting Document(s) triglycerides level 161 mg/dL <150 Above high normal Triglycer ides Level ABELARDO ([facility]) HDL cholesterol 45 mg/dL >40 HDL Cholesterol ATHE ([facility]) non-HDL-C 214 mg/dL Non-hdl-c AB[place]O ([facility]) Cholesterol in LDL [Mass/volume] in Serum or Plasma 182 mg/dL <100 Above high normal LDL Cholesterol ABELARDO ([facility]) cholesterol level 259 mg/dL <200 Above high normal Cholesterol Level ABELARDO ([facility]) cholesterol risk ratio <5 Above high normal Choles terol Risk Ratio AB[place]ARDO ([facility]) ID Date Data Source [id number] 09/20/2020 02:05:00 PM EST ABELARDO ([facility]) Name Value Range Interpretation Code Description Data Riddhi rce(s) Supporting Document(s) glucose, fasting 96 mg/dL 70-100 Glucose, Fasting AT [facility] ([facility]) blood urea nitrogen 11 mg/dL 7-18 Blood Urea Nitro gen ABELARDO ([facility]) glomerular filtration rate > 60.0 >60 Glomerula r Filtration Rate ABELARDO ([facility]) sodium level 140 mEq/L 136-145 Sodium Level ABELARDO ([facility]) creatinine for GFR 0.92 mg/dL 0.70-1.30 Creatinine for GF R ABELARDO ([facility]) carbon dioxide level 28 mEq/L 21-32 Carbon Dioxide Level AB[place]ARDO ([facility]) chloride level 108 mEq/L 98-107 Above high normal Chloride Level AB[place]O ([facility]) potassium serum 4.3 mEq/L 3.5-5.1 Potassium Serum ATHE ([facility]) anion gap 4 mEq/L 8-16 Below low normal Anion Gap AB[place] ( [facility]) AST/SGOT 18 U/L 7-37 AST/SGOT [place] ([facility]) calcium level 8.9 mg/dL 8.5-10.1 Calcium Level AB[place] ( [facility]) ALT/SGPT 22 U/L 12-78 ALT/SGPT [place] ([facility]) total protein 6.6 gm/dL 6.4-8.2 Total Protein [place] ( [facility]) alkaline phosphatase 98 U/L 45-117 Alkaline Phosph atase [place] ([facility]) bilirubin,total 0.6 mg/dL 0.2-1.0 Bilirubin,total AT[facility] ([facility]) albumin/globulin ratio Albumin/globu sneha Ratio [place] ([facility]) albumin 3.3 gm/dL 3.2-5.2 Albumin [place] ([facility]) ID Date Data Source [id number] 09/20/2020 02:05:00 PM EST [place] ([facility]) Name Value Range Interpretation Code Description Data Riddhi rce(s) Supporting Document(s) white blood count 5.3 10 4.0-10.0 White Blood Count [place] ([facility]) red blood count 5.22 10 4.30-6.10 Red Blood Count ATHE NA ([facility]) hematocrit 45.6 % 42.0-52.0 Hematocrit [place] ([facility]) mean corpuscular volume 87.4 fL 80.0-96.0 Mean Corpusc ular Volume [place] ([facility]) hemoglobin 14.7 g/dL 13.5-17.5 Hemoglobin [place] ([facility]) red cell distribution width 13.7 % 11.5-14.5 Red Cell Distribution Width [place] ([facility]) mean corpuscular hemoglobin 28.2 pg 27.0-33.0 Mean Cor puscular Hemoglobin [place] ([facility]) mean corpuscular HGB conc 32.2 g/dL 32.0-36.5 Mean Corpu scular HGB Conc [place] ([facility]) platelet count, automated 252 10 150-450 Platelet C ount, Automated [place] ([facility]) neutrophils % 68.5 % 36.0-66.0 Above high normal Neutrophils % A [place] ([facility]) lymph % 20.6 % 24.0-44.0 Below low normal Lymph % [place] ( [facility]) eos % 0.4 % 0.0-3.0 Eos % [place] ([facility]) mono % 9.1 % 0.0-5.0 Above high normal [place] % AB[place]O ([facility]) baso % 0.8 % 0.0-1.0 Baso % [place] ([facility]) neutrophils # 3.6 10 1.5-8.5 Neutrophils # [place] ( [facility]) nucleated red blood cell % 0.0 % 0-0 Nucleated Red Blood Cell % [place] ([facility]) immature granulocyte % 0.6 % 0-3.0 Immature Gran ulocyte % [place] ([facility]) lymph # 1.1 10 1.5-5.0 Below low normal Lymph # [place] ( [facility]) mono # 0.5 10 0.0-0.8 [place] # ABELARDO ([facility]) baso # 0.0 10 0.0-0.2 [place] # ABELARDO ([facility]) eos # 0.0 10 0.0-0.5 [place] # ABELARDO ([facility]) ID Date Data Source [id number] 09/20/2020 02:05:00 PM EST ABELARD[place] ([facility]) Name Value Range Interpretation Code Description Data Riddhi rce(s) Supporting Document(s) Hemoglobin A1c/Hemoglobin.total in Blood 5.5 % Hemoglobin a1C [place] ([facility]) estimated average glucose 111 mg/dL 60-110 Above high norm al Estimated Average Glucose [place] ([facility]) ID Date Data Source [id number] 09/20/2020 02:05:00 PM EST AB[place]ARD[place] ([facility]) Name Value Range Interpretation Code Description Data Riddhi rce(s) Supporting Document(s) total 25(oh) vitamin D 21.4 NG/mL 30.0-100.0 Below low normal T otal 25(Oh) Vitamin D [place] ([facility]) ID Date Data Source [id number] 09/20/2020 02:05:00 PM EST [place]ARD[place] ([facility]) Name Value Range Interpretation Code Description Data Riddhi rce(s) Supporting Document(s) thyroid stimulating hormone 7.020 uIU/mL 0.358-3.740 Above high no rmal Thyroid Stimulating Hormone [place] ([facility]) free T4 1.44 NG/dL 0.76-1.46 Free T4 [place] ([facility]) ID Date Data Source [id number] 09/20/2020 02:05:00 PM EST ABELARD[place] ([facility]) Name Value Range Interpretation Code Description Data Riddhi rce(s) Supporting Document(s) triglycerides level 161 mg/dL <150 Above high normal Triglycer ides Level [place] ([facility]) cholesterol level 259 mg/dL <200 Above high normal Cholesterol Level [place] ([facility]) HDL cholesterol 45 mg/dL >40 HDL Cholesterol AT[place] NA ([facility]) cholesterol risk ratio <5 Above high normal Choles terol Risk Ratio [place] ([facility]) non-HDL-C 214 mg/dL Non-hdl-c [place] ([facility]) Cholesterol in LDL [Mass/volume] in Serum or Plasma 182 mg/dL <100 Above high normal LDL Cholesterol ABELARDO ([facility]) ID Date Data Source [id number] 09/20/2020 02:05:00 PM EST [place] ([facility]) Name Value Range Interpretation Code Description Data Riddhi rce(s) Supporting Document(s) blood urea nitrogen 11 mg/dL 7-18 Blood Urea Nitro gen [place] ([facility]) glucose, fasting 96 mg/dL 70-100 Glucose, Fasting AT [place] ([facility]) sodium level 140 mEq/L 136-145 Sodium Level [place] ([facility]) creatinine for GFR 0.92 mg/dL 0.70-1.30 Creatinine for GF R [place] ([facility]) glomerular filtration rate > 60.0 >60 Glomerula r Filtration Rate [place] ([facility]) potassium serum 4.3 mEq/L 3.5-5.1 Potassium Serum ATHE NA ([facility]) chloride level 108 mEq/L 98-107 Above high normal Chloride Level [place] ([facility]) AST/SGOT 18 U/L 7-37 AST/SGOT [place] ([facility]) anion gap 4 mEq/L 8-16 Below low normal Anion Gap [place] ( [facility]) carbon dioxide level 28 mEq/L 21-32 Carbon Dioxide Level [place] ([facility]) calcium level 8.9 mg/dL 8.5-10.1 Calcium Level [place] ( [facility]) total protein 6.6 gm/dL 6.4-8.2 Total Protein [place] ( [facility]) ALT/SGPT 22 U/L 12-78 ALT/SGPT [place] ([facility]) bilirubin,total 0.6 mg/dL 0.2-1.0 Bilirubin,total AT[place] NA ([facility]) alkaline phosphatase 98 U/L 45-117 Alkaline Phosph atase [place] ([facility]) albumin/globulin ratio Albumin/globu sneha Ratio [place] ([facility]) albumin 3.3 gm/dL 3.2-5.2 Albumin [place] ([facility]) ID Date Data Source [id number] 09/20/2020 02:05:00 PM EST AB[place] ([facility]) Name Value Range Interpretation Code Description Data Riddhi rce(s) Supporting Document(s) white blood count 5.3 10 4.0-10.0 White Blood Count [place] ([facility]) hemoglobin 14.7 g/dL 13.5-17.5 Hemoglobin [place] ([facility]) red blood count 5.22 10 4.30-6.10 Red Blood Count AT[place] ([facility]) hematocrit 45.6 % 42.0-52.0 Hematocrit [place] ([facility]) mean corpuscular volume 87.4 fL 80.0-96.0 Mean Corpusc ular Volume [place] ([facility]) mean corpuscular HGB conc 32.2 g/dL 32.0-36.5 Mean Corpu scular HGB Conc [place] ([facility]) mean corpuscular hemoglobin 28.2 pg 27.0-33.0 Mean Cor puscular Hemoglobin [place] ([facility]) platelet count, automated 252 10 150-450 Platelet C ount, Automated [place] ([facility]) red cell distribution width 13.7 % 11.5-14.5 Red Cell Distribution Width [place] ([facility]) neutrophils % 68.5 % 36.0-66.0 Above high normal Neutrophils % A [place] ([facility]) lymph % 20.6 % 24.0-44.0 Below low normal Lymph % [place] ( [facility]) eos % 0.4 % 0.0-3.0 [place] % [place] ([facility]) baso % 0.8 % 0.0-1.0 [place] % [place] ([facility]) immature granulocyte % 0.6 % 0-3.0 Immature Gran ulocyte % [place] ([facility]) mono % 9.1 % 0.0-5.0 Above high normal [place] % AB[place]ARD[place] ([facility]) neutrophils # 3.6 10 1.5-8.5 [place] # AB[place] ( [facility]) nucleated red blood cell % 0.0 % 0-0 Nucleated Red Blood Cell % [place] ([facility]) lymph # 1.1 10 1.5-5.0 Below low normal [place] # [place] ( [facility]) mono # 0.5 10 0.0-0.8 [place] # ABELARDO ([facility]) eos # 0.0 10 0.0-0.5 [place] # [place] ([facility]) baso # 0.0 10 0.0-0.2 [place] # [place] ([facility]) Procedure Social History No Information Vital Signs ID Date Data Source UNK Name Value Range Interpretation Code Description Data Source(s) Diastolic blood pressure 84 mm[Hg] 84 mm[Hg] [place] ([facility]) Body height 57.5 [in_i] 57.5 [in_i] [place] ([facility]) Body mass index (BMI) [Ratio] 38.3 kg/m2 38.3 k g/m2 [place] ([facility]) Systolic blood pressure 122 mm[Hg] 122 mm[Hg] A [place] ([facility]) Body weight 2880 [oz_av] 2880 [oz_av] [place]ARD[place] ([facility]) Body height 57.5 [in_i] 57.5 [in_i] [place] ([facility]) Body height 57.5 [in_i] 57.5 [in_i] [place] ([facility]) Diastolic blood pressure 72 mm[Hg] 72 mm[Hg] [place] ([facility]) Body height 57.5 [in_i] 57.5 [in_i] [place] ([facility]) Body mass index (BMI) [Ratio] 37.7 kg/m2 37.7 k g/m2 [place] ([facility]) Systolic blood pressure 104 mm[Hg] 104 mm[Hg] [facility] Body weight 2840 [oz_av] 2840 [oz_av] [place] ([facility]) Body mass index (BMI) [Ratio] 37.7 kg/m2 37.7 k g/m2 [place] ([facility]) Body height 57.5 [in_i] 57.5 [in_i] [place] ([facility]) Diastolic blood pressure 72 mm[Hg] 72 mm[Hg] [place] ([facility]) Systolic blood pressure 104 mm[Hg] 104 mm[Hg] A [place] ([facility]) Body weight 2840 [oz_av] 2840 [oz_av] AB[place]ARD[place] ([facility]) Diastolic blood pressure 72 mm[Hg] 72 mm[Hg] [place] ([facility]) Body height 57.5 [in_i] 57.5 [in_i] AB[place]ARD[place] ([facility]) Body mass index (BMI) [Ratio] 37.7 kg/m2 37.7 k g/m2 [place] ([facility]) Systolic blood pressure 104 mm[Hg] 104 mm[Hg] A [place] ([facility]) Body weight 2840 [oz_av] 2840 [oz_av] [place] ([facility]) Body weight 2752 [oz_av] 2752 [oz_av] [place] ([facility]) Diastolic blood pressure 76 mm[Hg] 76 mm[Hg] [place] ([facility]) Body height 57.5 [in_i] 57.5 [in_i] AB[place] ([facility]) Body mass index (BMI) [Ratio] 36.6 kg/m2 36.6 k g/m2 [place] ([facility]) Systolic blood pressure 111 mm[Hg] 111 mm[Hg] A [place] ([facility]) Body weight 2752 [oz_av] 2752 [oz_av] [place] ([facility]) Diastolic blood pressure 76 mm[Hg] 76 mm[Hg] [place] ([facility]) Body height 57.5 [in_i] 57.5 [in_i] AB[place] ([facility]) Body mass index (BMI) [Ratio] 36.6 kg/m2 36.6 k g/m2 [place] ([facility]) Systolic blood pressure 111 mm[Hg] 111 mm[Hg] [facility] Diastolic blood pressure 76 mm[Hg] 76 mm[Hg] [place] ([facility]) Body height 57.5 [in_i] 57.5 [in_i] AB[place]ARD[place] ([facility]) Body mass index (BMI) [Ratio] 36.6 kg/m2 36.6 k g/m2 [place] ([facility]) Systolic blood pressure 111 mm[Hg] 111 mm[Hg] A [place] ([facility]) Body weight 2752 [oz_av] 2752 [oz_av] [place]ARD[place] ([facility]) Diastolic blood pressure 76 mm[Hg] 76 mm[Hg] [place] ([facility]) Body height 57.5 [in_i] 57.5 [in_i] [place] ([facility]) Body mass index (BMI) [Ratio] 36.6 kg/m2 36.6 k g/m2 [place] ([facility]) Systolic blood pressure 111 mm[Hg] 111 mm[Hg] A [place] ([facility]) Body weight 2752 [oz_av] 2752 [oz_av] [place] ([facility]) Patient Treatment Plan of Care Planned Activity Planned Date Details Description Data Source (s) Docusate Sodium 100 MG Oral Capsule [place] ([facility]) Prednisone 20 MG Oral Tablet [place] ([facility]) pantoprazole 40 MG Delayed Release Oral Tablet [place] ([facility]) Mupirocin 0.02 MG/MG Topical Ointment [place] ([facility]) Levothyroxine Sodium 0.15 MG Oral Tablet [place] ([facility]) Levofloxacin 750 MG Oral Tablet [place] ([facility]) Clindamycin 300 MG Oral Capsule [place] ([facility]) Ciprofloxacin 3 MG/ML / Dexamethasone 1 MG/ML Otic Suspension [Cipr odex] [place] ([facility]) benzonatate 100 MG Oral Capsule [place] ([facility]) Acetaminophen 325 MG Oral Tablet [place] ([facility]) Docusate Sodium 100 MG Oral Capsule [place] ([facility]) Prednisone 20 MG Oral Tablet [place] ([facility]) pantoprazole 40 MG Delayed Release Oral Tablet [place] ([facility]) Mupirocin 0.02 MG/MG Topical Ointment [place] ([facility]) Levothyroxine Sodium 0.15 MG Oral Tablet [place] ([facility]) Levofloxacin 750 MG Oral Tablet [place] ([facility]) Clindamycin 300 MG Oral Capsule [place] ([facility]) Ciprofloxacin 3 MG/ML / Dexamethasone 1 MG/ML Otic Suspension [Cipr odex] [place] ([facility]) benzonatate 100 MG Oral Capsule [place] ([facility]) Acetaminophen 325 MG Oral Tablet [place] ([facility]) Docusate Sodium 100 MG Oral Capsule [place] ([facility]) Prednisone 20 MG Oral Tablet [place] ([facility]) pantoprazole 40 MG Delayed Release Oral Tablet [place] ([facility]) Mupirocin 0.02 MG/MG Topical Ointment [place] ([facility]) Levothyroxine Sodium 0.15 MG Oral Tablet [place] ([facility]) Levofloxacin 750 MG Oral Tablet [place] ([facility]) Clindamycin 300 MG Oral Capsule [place] ([facility]) Ciprofloxacin 3 MG/ML / Dexamethasone 1 MG/ML Otic Suspension [Cipr odex] [place] ([facility]) benzonatate 100 MG Oral Capsule [place] ([facility]) Acetaminophen 325 MG Oral Tablet [place] ([facility]) Docusate Sodium 100 MG Oral Capsule [place] ([facility]) Prednisone 20 MG Oral Tablet [place] ([facility]) pantoprazole 40 MG Delayed Release Oral Tablet [place] ([facility]) Mupirocin 0.02 MG/MG Topical Ointment [place] ([facility]) Levothyroxine Sodium 0.15 MG Oral Tablet [place] ([facility]) Levofloxacin 750 MG Oral Tablet [place] ([facility]) Ciprofloxacin 3 MG/ML / Dexamethasone 1 MG/ML Otic Suspension [Cipr odex] AB[place] ([facility]) benzonatate 100 MG Oral Capsule [place] ([facility]) Acetaminophen 325 MG Oral Tablet [place] ([facility])
--- NOTE | 2021-10-17 17:22 | HPEPDOC ---
General Date of Admission 10/17/21 Date of Service: Oct 17, 2021 Chief Complaint The patient is a 26-year-old male admitted with a reason for visit of Cold/Flu Symptoms. Source: Family, RN/MD History of Present Illness 26-year-old male with Down syndrome, heart murmur, heart block so has a pacemaker in place presented was brought in by mom for fever of 101.4 which started early this a.m. along with chest discomfort. Patient is nonverbal at baseline answers "Yeah" to everything. As per mom he was having some cold and chills for the past 2 days and yesterday he was sneezing. This early this morning at around 4 AM she heard him gagging and coughing and choking and the baby monitor went to check on him and found that he was very pale and he had vomited all over the bed. She checked his temperature which was elevated. She gave the patient ibuprofen and he went back to sleep. After about 2 3 hours when he woke up he pointed to his chest and his left ear indicating that these were hurting. As per mom normally he does not complain of any pain and is able to express only if he is in severe discomfort. Mom also mentioned that she has noticed some watery pinkish discharge from his left ear for the past 2 days. In the ED chest x-ray showed Left Patchy opacities in the right upper lower lobes along with diffusely increased interstitial markings suggestive of early pulmonary vascular redistribution impression was asymmetric pulmonary edema and or pneumonia. Labs showed a white count of 18,000. Patient was admitted for community acquired pneumonia vs aspiration pneumonia with possible left ear infection Home Medications Scheduled Levofloxacin (Levofloxacin) 750 Mg Tablet, 1 TAB PO DAILY Levothyroxine Sodium (Synthroid) 137 Mcg Tablet, 137 MCG PO DAILY, (Reported) Polyethylene Glycol 3350 (Miralax) 17 Gm Powd.pack, 17 GM PO DAILY, (Reported) Scheduled PRN Ibuprofen (Ibuprofen Ib) 200 Mg Tablet, 200 MG PO Q6H PRN for PAIN LEVEL 1-5, (Reported) Allergies Coded Allergies: Cephalosporins (Verified Allergy, Intermediate, HIVES, 12/27/19) Penicillins (Verified Allergy, Intermediate, HIVES, 12/27/19) diphenhydramine (Verified Allergy, Intermediate, HIVES, 10/17/21) Past Medical History Medical History Down syndrome hypothyroidism History of heart surgery at 4 months of age, subsequent pacemaker placement and removal Pacemaker placement about 3 years ago for cardiac pauses and syncopal episodes. He had right ear canal surgery to manage a cholecystectoma Asthma. CAD Prior history of PEG tube placement. Status post tonsillectomy Surgical History Pacemaker due to long pauses. Family History Diabetes Asthma. SVT. Cotto's esophagus Pituitary tumor Social History * Smoker: Denies Alcohol: Denies Drugs: denies A-FIB/CHADSVASC A-FIB History Current/History of A-Fib/PAF?: No Review of Systems Constitutional: Reports: Fever, Night Sweats Eyes: Denies: Pain, Vision change ENT: Reports: Ear Pain, Dysphagia, Other Symptoms (Discharge from left ear) Skin: Denies: Rash, Lesions, Breakdown Pulmonary: Reports: Other Symptoms Cardiovascular: Reports: Chest Pain, Lt Headedness; Denies: Orthopnea, Edema Gastrointestinal: Reports: Vomiting, Constipation Genitourinary: Denies: Dysuria, Frequency Hematologic: Denies: Bruising, Bleeding Excessively Musculoskeletal: Denies: Neck Pain, Back Pain, Joint Pain, Muscle Pain, Spasms Physical Examination General Exam: Positive: Alert, Cooperative, No Acute Distress Eye Exam: Positive: PERRLA, Conjunctiva & lids normal, EOMI; Negative: Sclera icteric ENT Exam: Positive: Atraumatic, Mucous membr. moist/pink, Pharynx Normal Neck Exam: Positive: Supple; Negative: JVD, thyromegaly Chest Exam: Positive: Clear to auscultation, Normal air movement Heart Exam: Positive: Rate Normal, Regular Rhythm, Normal S1, Normal S2, Murmurs (Systolic murmur present); Negative: Rubs Abdomen Exam: Positive: Normal bowel sounds, Soft; Negative: Tenderness Extremity Exam: Negative: Clubbing, Cyanosis, Edema Skin Exam: Positive: Nl turgor and temperature; Negative: Breakdown, Lesion Psych Exam: Positive: Other (Has Down syndrome so is mostly nonverbal though follows commands.) Vital Signs Vital Signs Date Time Temp Pulse Resp B/P (MAP) Pulse Ox O2 Delivery O2 Flow Rate FiO2 10/17/21 08:53 98.1 125 18 125/71 (89) 94 Room Air Laboratory Data Labs 24H Laboratory Tests 2 10/17/21 11:23: Coronavirus (COVID-19)(PCR) NEGATIVE, Influenza Type A (RT-PCR) NEGATIVE, Influenza Type B (RT-PCR) NEGATIVE, Respiratory Syncytial Virus (PCR) NEGATIVE 10/17/21 14:07: Immature Granulocyte % (Auto) 1.0, Neutrophils (%) (Auto) 88.5H, Lymphocytes (%) (Auto) 4.7L, Monocytes (%) (Auto) 5.3, Eosinophils (%) (Auto) 0.1, Basophils (%) (Auto) 0.4, Neutrophils # (Auto) 16.0H, Lymphocytes # (Auto) 0.8L, Monocytes # (Auto) 1.0H, Eosinophils # (Auto) 0.0, Basophils # (Auto) 0.1, Nucleated Red Blood Cells % (auto) 0.0, Total Bilirubin 0.7, Direct Bilirubin 0.2, Aspartate Amino Transf (AST/SGOT) 16, Alanine Aminotransferase (ALT/SGPT) 22, Alkaline Phosphatase 115, Total Creatine Kinase 65, Creatine Kinase MB < 1.0, Creatine Kinase MB Relative Index 1.54, NE-Tig-J-Type Natriuretic Peptide 602H, Total Protein 6.3L, Albumin 2.9L, Albumin/Globulin Ratio 0.9, Lipase 56L, Thyroid Stimulating Hormone (TSH) 1.180, Free Thyroxine 1.69H 10/17/21 14:48: POC Glucose (Misc Panel) 106H, POC Sodium (Misc Panel) 138, POC Potassium (Misc Panel) 4.1, POC Chloride (Misc Panel) 105, POC Total CO2 (Misc Panel) 24.0, POC Blood Urea Nitrogen (Misc Panel 11, POC Ionized Calcium (Misc Panel) 4.7, POC Creatinine (Misc Panel) 0.8, POC Hematocrit (Misc Panel) 40.0 10/17/21 14:55: POC Troponin I (Misc) 0.00 CBC/BMP Laboratory Tests 10/17/21 14:07 Assessment/Plan 26-year-old male with Down syndrome, heart murmur, heart block so has a pacemaker in place presented was brought in by mom for fever of 101.4 which started early this a.m. along with chest discomfort. Patient is nonverbal at baseline answers "Yeah" to everything. As per mom he was having some cold and chills for the past 2 days and yesterday he was sneezing. This early this morning at around 4 AM she heard him gagging and coughing and choking and the baby monitor went to check on him and found that he was very pale and he had vomited all over the bed. She checked his temperature which was elevated. She gave the patient ibuprofen and he went back to sleep. After about 2 3 hours when he woke up he pointed to his chest and his left ear indicating that these were hurting. As per mom normally he does not complain of any pain and is able to express only if he is in severe discomfort. Mom also mentioned that she has noticed some watery pinkish discharge from his left ear for the past 2 days. In the ED chest x-ray showed Left Patchy opacities in the right upper lower lobes a long with diffusely increased interstitial markings suggestive of early pulmonary vascular redistribution impression was asymmetric pulmonary edema and or pneumonia. Labs showed a white count of 18,000. Patient was admitted for community acquired pneumonia Vs aspiration pneumonia with possible left ear infection. Community-acquired pneumonia Vs aspiration pneumonia Patient gagged and vomited when asleep. We will treat with levofloxacin as patient has allergy to cephalosporin and penicillins with hives Blood cultures have been sent Possible pulmonary vascular congestion as per chest x-ray Clinically there are no signs of fluid overload, no JVD We will hold off on diuretics at this point History of cardiac murmur and pauses Has a pacemaker in place Chronic constipation We will continue with MiraLAX Hypothyroid Continue with Synthroid Plan / VTE VTE Prophylaxis Ordered?: Yes Kirsten Sharpe MD Oct 17, 2021 15:50
[2021-10-17 22:47] VITALS: BP 113/81
[2021-10-18] MEDS ORDERED: LEVOTHYROXINE 137MCG TABLET (0.137MG) PO SCH (06:00)
[2021-10-18 06:20] VITALS: BP 114/64
[2021-10-18 07:13] LABS: BASO # 0.1 10^3/uL (0.0-0.2); BASO % 0.4 % (0.0-1.0); EOS # 0.1 10^3/uL (0.0-0.5); EOS % 0.5 % (0.0-3.0); HEMATOCRIT 43.9 % (42.0-52.0); HEMOGLOBIN 14.1 g/dl (13.5-17.5); LYMPH # 1.1 10^3/uL (1.5-5.0); LYMPH % 9.7 % (24.0-44.0); MEAN CORPUSCULAR HEMOGLOBIN 28.4 pg (27.0-33.0); MEAN CORPUSCULAR HGB CONC 32.1 g/dl (32.0-36.5); MEAN CORPUSCULAR VOLUME 88.5 fl (80.0-96.0); MONO # 0.7 10^3/uL (0.0-0.8); MONO % 5.9 % (2.0-8.0); NEUTROPHILS # 9.7 10^3/uL (1.5-8.5); NEUTROPHILS % 83.2 % (36.0-66.0); PLATELET COUNT, AUTOMATED 241 10^3/uL (150-450); RED BLOOD COUNT 4.96 10^6/uL (4.30-6.10); WHITE BLOOD COUNT 11.6 10^3/uL (4.0-10.0)
[2021-10-18 07:36] LABS: BLOOD UREA NITROGEN 14 MG/DL (7-18); CALCIUM LEVEL 8.7 MG/DL (8.5-10.1); CARBON DIOXIDE LEVEL 26 MEQ/L (21-32); CHLORIDE LEVEL 106 MEQ/L (98-107); CREATININE FOR GFR 0.88 MG/DL (0.70-1.30); GLOMERULAR FILTRATION RATE > 60.0 (>60); GLUCOSE, FASTING 117 MG/DL (70-100); POTASSIUM SERUM 3.9 MEQ/L (3.5-5.1); SODIUM LEVEL 139 MEQ/L (136-145)
[2021-10-18 09:00] VITALS: BP 114/88
[2021-10-18] MEDS ORDERED: ENOXAPARIN 80MG/0.8ML SYRINGE (J1650 PER 10MG) SC SCH (09:00)
[2021-10-18] MEDS ORDERED: ENOXAPARIN 40MG/0.4ML SYRINGE (J1650 PER 10MG) SC SCH (09:00)
[2021-10-18] MEDS ORDERED: MIRALAX *UNIT DOSE* 17GM PACKET PO SCH (09:00)
[2021-10-18] MEDS ORDERED: LevoFLOXacin IV 750 MG in IV 1 EA IV SCH ×2 (12:00→18:00)
[2021-10-18] MEDS ORDERED: LEVO750T13 PO (13:49)
[2021-10-18 14:10] VITALS: BP 110/74
--- NOTE | 2021-10-18 15:45 | DS.PDOC ---
Discharge Summary General Date of Admission Oct 17, 2021 at 16:59 Date of Discharge 10/18/21 Discharge Summary PROCEDURES PERFORMED DURING STAY: [None]. DISCHARGE DIAGNOSES: Community acquired pneumonia Vs aspiration pneumonia SECONDARY DIAGNOSIS: Down syndrome, ASD repair at 4 months with persistent heart murmur, Hypothyroid, High degree Heart block so has a pacemaker in place COMPLICATIONS/CHIEF COMPLAINT: Down Syndrome, Pneumonia. HOSPITAL COURSE: 26-year-old male with Down syndrome, heart murmur, heart block so has a pacemaker in place presented was brought in by mom for fever of 101.4 which started early this a.m. along with chest discomfort. Patient is nonverbal at baseline answers "Yeah" to everything. As per mom he was having some cold and chills for the past 2 days and yesterday he was sneezing. This early this morning at around 4 AM she heard him gagging and coughing and choking and the baby monitor went to check on him and found that he was very pale and he had vomited all over the bed. She checked his temperature which was elevated. She gave the patient ibuprofen and he went back to sleep. After about 2 3 hours when he woke up he pointed to his chest and his left ear indicating that these were hurting. As per mom normally he does not complain of any pain and is able to express only if he is in severe discomfort. Mom also mentioned that she has noticed some watery pinkish discharge from his left ear for the past 2 days. In the ED chest x-ray showed Left Patchy opacities in the right upper lower lobes along with diffusely increased interstitial markings suggestive of early pulmonary vascular redistribution impression was asymmetric pulmonary edema and or pneumonia. Labs showed a white count of 18,000. Patient was admitted for community acquired pneumonia Vs aspiration pneumonia with possible left ear infection. Community-acquired pneumonia Vs aspiration pneumonia infiltrates in RUL and LLL. Patient did vomit and gag when asleep. We will treat with levofloxacin as patient has allergy to cephalosporin and penicillins with hives Possible pulmonary vascular congestion as per chest x-ray Clinically there are no signs of fluid overload, no JVD will not give any diuretics. Chronic constipation We will continue with MiraLAX Hypothyroid Continue with Synthroid DISCHARGE MEDICATIONS: Please see below. ALLERGIES: Please see below. PHYSICAL EXAMINATION ON DISCHARGE: VITAL SIGNS: Please see below. General: Positive: Alert, Cooperative, No Acute Distress Eye Exam: Positive: PERRLA, Conjunctiva & lids normal, EOMI; Negative: Sclera icteric ENT Exam: Positive: Atraumatic, Mucous membr. moist/pink, Pharynx Normal Neck Exam: Positive: Supple; Negative: JVD, thyromegaly Chest Exam: Positive: Clear to auscultation, Normal air movement Heart Exam: Positive: Rate Normal, Regular Rhythm, Normal S1, Normal S2, Murmurs (Systolic murmur present); Negative: Rubs Abdomen Exam: Positive: Normal bowel sounds, Soft; Negative: Tenderness Extremity Exam: Negative: Clubbing, Cyanosis, Edema Skin Exam: Positive: Nl turgor and temperature; Negative: Breakdown, Lesion Psych Exam: Positive: Other (Has Down syndrome so is mostly nonverbal though follows commands.) LABORATORY DATA: Please see below. IMAGING: The cardiomediastinal silhouette is unchanged. There is a dual chamber bipolar pacemaker device status quo. New patchy opacities have developed in the right upper and left lower lobes. The interstitial markings appear diffusely increased. There is early pulmonary vascular redistribution. IMPRESSION: Asymmetric pulmonary edema and or pneumonia correlate clinically. ACTIVITY: [As tolerated]. DIET: As tolerated DISCHARGE PLAN: Home DISCHARGE INSTRUCTIONS: PMD in 1 week Follow up final blood cultures. DISCHARGE CONDITION: [Stable]. TIME SPENT ON DISCHARGE: 35 minutes. Vital Signs/I&Os Vital Signs Date Time Temp Pulse Resp B/P (MAP) Pulse Ox O2 Delivery O2 Flow Rate FiO2 10/18/21 14:10 98.2 100 20 110/74 (86) 94 Room Air I&O- Last 24 Hours up to 6 AM 10/18/21 07:00 Intake Total 900 ml Output Total 0 ml Balance 900 ml Laboratory Data Labs 24H Laboratory Tests 2 10/18/21 06:32: Immature Granulocyte % (Auto) 0.3, Neutrophils (%) (Auto) 83.2H, Lymphocytes (%) (Auto) 9.7L, Monocytes (%) (Auto) 5.9, Eosinophils (%) (Auto) 0.5, Basophils (%) (Auto) 0.4, Neutrophils # (Auto) 9.7H, Lymphocytes # (Auto) 1.1L, Monocytes # (Auto) 0.7, Eosinophils # (Auto) 0.1, Basophils # (Auto) 0.1, Nucleated Red Blood Cells % (auto) 0.0, Anion Gap 7L, Glomerular Filtration Rate > 60.0, Calcium Level 8.7 10/18/21 10:21: Methicillin-Resist S.aureus DNA PCR NOT DETECTED CBC/BMP Laboratory Tests 10/18/21 06:32 Microbiology Microbiology 10/17/21 Blood Culture, Received Pending 10/17/21 Blood Culture, Received Pending Discharge Medications Scheduled Levofloxacin (Levofloxacin) 750 Mg Tablet, 1 TAB PO DAILY Levothyroxine Sodium (Synthroid) 137 Mcg Tablet, 137 MCG PO DAILY, (Reported) Polyethylene Glycol 3350 (Miralax) 17 Gm Powd.pack, 17 GM PO DAILY, (Reported) Scheduled PRN Ibuprofen (Ibuprofen Ib) 200 Mg Tablet, 200 MG PO Q6H PRN for PAIN LEVEL 1-5, (Reported) Allergies Coded Allergies: Cephalosporins (Verified Allergy, Intermediate, HIVES, 12/27/19) Penicillins (Verified Allergy, Intermediate, HIVES, 12/27/19) diphenhydramine (Verified Allergy, Intermediate, HIVES, 10/17/21) Kirsten Sharpe MD Oct 18, 2021 15:45
--- NOTE | 2021-10-18 20:20 | ECGEPIP ---
[facility] - ED Test Date: 2021-10-17 Pat Name: CHICA BENJAMIN Department: Room: - Gender: Male [employer] Secretary: TIMBO : 1995 Requested By: CLIFTON LAY PA-C Order Number: [id number] Reading MD: Babar Ennis Measurements Intervals [place] Rate: 98 P: 28 ND: 188 QRS: -57 QRSD: 130 T: 61 QT: 372 QTc: 474 Interpretive Statements Normal sinus rhythm Right bundle branch block Left anterior fascicular block Bifascicular block Inferior infarct , age undetermined Anterolateral infarct , age undetermined Electronically Signed on 10-18-2021 20:20:31 EST by Babar Ennis
== END 2021-10-18 15:35 | disposition home or self-care (01) | DRG 139 ==
LOC: M ED 08:52 → EEVIPCON 16:59 → M ED INP 16:59 → M MS5PR 22:30
PROVIDERS: ADMIT Internal Medicine Nephrology; ATTEND Internal Medicine Nephrology
DX: J18.9 Pneumonia, unspecified organism (principal); Q90.9 Down syndrome, unspecified; E03.9 Hypothyroidism, unspecified; I45.9 Conduction disorder, unspecified; K59.09 Other constipation; J69.0 Pneumonitis due to inhalation of food and vomit; J45.909 Unspecified asthma, uncomplicated; I25.10 Atherosclerotic heart disease of native coronary artery without angina pectoris; Z20.822 Contact with and (suspected) exposure to COVID-19; Z95.0 Presence of cardiac pacemaker; Z79.899 Other long term (current) drug therapy; Z88.0 Allergy status to penicillin; Z88.1 Allergy status to other antibiotic agents; Z88.8 Allergy status to other drugs, medicaments and biological substances

== ENCOUNTER → 2022-08-05 | Outpatient (CLI) | payer MEDICAID ==
[~2022-08-05] MED LIST changes: +IBUP-1452 PO; +IBUP200C25 PO; +LEVO1TAB40 PO; +MIRA1POW3 PO; +VITA100093 PO; +VITMTA PO
== END ==
LOC: M RAD 11:56
PROVIDERS: ATTEND Physician Assistant
DX: R06.09 Other forms of dyspnea (principal)

== ENCOUNTER → 2022-08-06 | Outpatient (CLI) | payer MEDICAID | LOC: M LABSMTC 09:59 | PROVIDERS: ATTEND Anesthesiology | DX: Z01.818 Encounter for other preprocedural examination (principal); Z11.52 Encounter for screening for COVID-19 ==

== ENCOUNTER 2022-08-09 08:54 | Day surgery (SDC) | payer MEDICAID ==
[~2022-08-09] VITALS: Ht 160 cm; Wt 84.8 kg
[2022-08-09] MEDS ORDERED: LR 1,000 ML IV SCH ×2 (09:30→12:30)
[2022-08-09] MEDS ORDERED: LIDOCAINE W/EPINEPHRINE 1% 20ML VIAL As Ordered ONE (10:49)
[2022-08-09] MEDS ORDERED: MIDAZOLAM INJ 2MG/2ML VIAL (J2250 PER 1MG) As Ordered ONE (11:21)
[2022-08-09] MEDS ORDERED: ROCURONIUM BROMIDE 50 MG/5 ML VIAL As Ordered ONE (11:23)
[2022-08-09] MEDS ORDERED: fentaNYL 100 MCG/2 ML INJECTION As Ordered ONE (11:23)
[2022-08-09] MEDS ORDERED: dexameTHASONE 4 MG/ML 1ML VIAL (J1100 PER 1MG) As Ordered ONE ×2 (11:47→12:14)
[2022-08-09] MEDS ORDERED: ONDANSETRON 4MG 2ML VIAL As Ordered ONE (11:48)
[2022-08-09] MEDS ORDERED: propofoL 200 MG/20 ML VIAL As Ordered ONE (12:06)
[2022-08-09] MEDS ORDERED: SUGAMMADEX SODIUM 500 MG/5 ML VIAL (BRIDION) As Ordered ONE (12:14)
[2022-08-09] MEDS ORDERED: ONDANSETRON 4MG 2ML VIAL IV PRN (12:30)
[2022-08-09] MEDS ORDERED: fentaNYL 100 MCG/2 ML INJECTION IV PRN (12:30)
[2022-08-09] MEDS ORDERED: MORPHINE 2 MG/ML 1ML VIAL IV PRN (12:30)
[2022-08-09] MEDS ORDERED: oxyCODONE 5MG TAB PO PRN (12:30)
[2022-08-09 13:40] VITALS: BP 126/67
== END 2022-08-09 14:04 | disposition home or self-care (01) ==
LOC: M SDC 08:54
PROVIDERS: ATTEND Dentist Oral and Maxillofacial Surgery
DX: K02.9 Dental caries, unspecified (principal); Z79.899 Other long term (current) drug therapy; Z79.890 Hormone replacement therapy; Z88.0 Allergy status to penicillin; Z88.1 Allergy status to other antibiotic agents; Z88.8 Allergy status to other drugs, medicaments and biological substances
CPT/HCPCS: 88300; D7140; D9223; J1100; J2250; J2405; J3010

== ENCOUNTER → 2022-12-19 | Outpatient (REF) | payer MEDICAID ==
[2022-12-19 19:22] LABS: HEMATOCRIT 46.3 % (42.0-52.0); HEMOGLOBIN 14.8 g/dl (13.5-17.5); MEAN CORPUSCULAR HEMOGLOBIN 29.1 pg (27.0-33.0); MEAN CORPUSCULAR VOLUME 91.1 fl (80.0-96.0); PLATELET COUNT, AUTOMATED 238 10^3/uL (150-450); RED BLOOD COUNT 5.08 10^6/uL (4.30-6.10); WHITE BLOOD COUNT 4.2 10^3/uL (4.0-10.0)
[2022-12-20 00:12] LABS: ALBUMIN 3.3 G/DL (3.2-5.2); ALKALINE PHOSPHATASE 109 U/L (46-116); ALT/SGPT 22 U/L (7.0-40); AST/SGOT 27 U/L (<34); BILIRUBIN,TOTAL 0.8 MG/DL (0.3-1.2); BLOOD UREA NITROGEN 18 MG/DL (9-23); CALCIUM LEVEL 8.8 MG/DL (8.5-10.1); CARBON DIOXIDE LEVEL 24 MMOL/L (20-31); CHLORIDE LEVEL 104 MMOL/L (98-107); CHOLESTEROL LEVEL 166 MG/DL (<200); CHOLESTEROL RISK RATIO 4.01 (<5); CREATININE FOR GFR 1.01 MG/DL (0.70-1.30); GLOMERULAR FILTRATION RATE > 60.0 (>60); GLUCOSE, FASTING 113 MG/DL (60-100); HDL CHOLESTEROL 41.3 MG/DL (>40); LDL CHOLESTEROL 95.7 MG/DL (<100); NON-HDL-C 125 MG/DL; POTASSIUM SERUM 4.4 MMOL/L (3.5-5.1); SODIUM LEVEL 140 MMOL/L (136-145); TOTAL PROTEIN 6.3 G/DL (5.7-8.2); TRIGLYCERIDES LEVEL 145 MG/DL (<150)
[2022-12-20 21:14] LABS: HEMOGLOBIN A1c 5.6 % (4.0-6.0)
== END ==
LOC: M LAB REF 16:34
PROVIDERS: ATTEND Physician Assistant
DX: E55.9 Vitamin D deficiency, unspecified (principal); E83.51 Hypocalcemia; R73.03 Prediabetes; E78.5 Hyperlipidemia, unspecified

== ENCOUNTER 2023-05-14 08:54 | Emergency (ER) | payer MEDICAID ==
[~2023-05-14] VITALS: Ht 160 cm; Wt 92.2 kg
[~2023-05-14 08:54] MED LIST changes: -IBUP-1452 PO; +IBUP-1621 PO
[2023-05-14 09:14] VITALS: TEMP 97.7
[2023-05-14] MEDS ORDERED: ATOR1TAB21 (09:15)
[2023-05-14 10:30] LABS: BASO # 0.1 10^3/uL (0.0-0.2); EOS % 0.5 % (0.0-3.0); HEMATOCRIT 44.9 % (42.0-52.0); HEMOGLOBIN 15.2 g/dl (13.5-17.5); LYMPH # 1.2 10^3/uL (1.5-5.0); LYMPH % 19.8 % (24.0-44.0); MEAN CORPUSCULAR HEMOGLOBIN 29.5 pg (27.0-33.0); MEAN CORPUSCULAR HGB CONC 33.9 g/dl (32.0-36.5); MONO # 0.5 10^3/uL (0.0-0.8); MONO % 8.3 % (2.0-8.0); NEUTROPHILS # 4.2 10^3/uL (1.5-8.5); NEUTROPHILS % 70.1 % (36.0-66.0); PLATELET COUNT, AUTOMATED 230 10^3/uL (150-450); RED BLOOD COUNT 5.16 10^6/uL (4.30-6.10)
[2023-05-14 10:54] LABS: LIPASE 32 U/L (12-53)
[2023-05-14 10:55] LABS: CK-MB VALUE MASS 1.2 NG/ML (<3.6)
[2023-05-14 10:58] LABS: ALBUMIN 3.3 G/DL (3.2-5.2); ALKALINE PHOSPHATASE 104 U/L (46-116); ALT/SGPT < 9 U/L (7.0-40); AST/SGOT 22 U/L (<34); BILIRUBIN,DIRECT 0.2 MG/DL (<0.4); BILIRUBIN,TOTAL 0.6 MG/DL (0.3-1.2); BLOOD UREA NITROGEN 19 MG/DL (9-23); CALCIUM LEVEL 8.5 MG/DL (8.5-10.1); CARBON DIOXIDE LEVEL 26 MMOL/L (20-31); CHLORIDE LEVEL 108 MMOL/L (98-107); CREATININE FOR GFR 0.75 MG/DL (0.70-1.30); GLOMERULAR FILTRATION RATE > 60.0 (>60); GLUCOSE, FASTING 144 MG/DL (60-100); POTASSIUM SERUM 4.5 MMOL/L (3.5-5.1); SODIUM LEVEL 137 MMOL/L (136-145); TOTAL PROTEIN 5.9 G/DL (5.7-8.2)
[2023-05-14 11:08] LABS: CPK CREATINE PHOSPHOKINASE 78 U/L (46-171); MB/CK RELATIVE INDEX 1.53 (< OR =4)
[2023-05-14 12:00] LABS: CK-MB VALUE MASS < 1.0 NG/ML (<3.6)
[2023-05-14 12:08] LABS: CPK CREATINE PHOSPHOKINASE 79 U/L (46-171); MB/CK RELATIVE INDEX 1.26 (< OR =4)
[2023-05-14 13:31] VITALS: BP 121/57
[2023-05-14 13:45] VITALS: O2SAT 96
== END 2023-05-14 14:01 | disposition home or self-care (01) ==
LOC: M ED 08:54 → EDBD 08:54 → M ED 14:01
DX: I50.20 Unspecified systolic (congestive) heart failure (principal); R07.9 Chest pain, unspecified; I47.1 Supraventricular tachycardia; Q21.10 Atrial septal defect, unspecified; Q90.9 Down syndrome, unspecified; Z98.84 Bariatric surgery status; Z95.0 Presence of cardiac pacemaker; E78.5 Hyperlipidemia, unspecified; I25.2 Old myocardial infarction; Z88.0 Allergy status to penicillin; Z88.1 Allergy status to other antibiotic agents; Z79.899 Other long term (current) drug therapy

== ENCOUNTER → 2024-03-30 | Outpatient (REF) | payer MEDICAID ==
[~2024-03-30] MED LIST changes: +ATOR1TAB21; -MIRA1POW3 PO; +MIRA33506 PO
[2024-03-30 18:04] LABS: HEMATOCRIT 46.5 % (42.0-52.0); MEAN CORPUSCULAR HEMOGLOBIN 28.7 pg (27.0-33.0); MEAN CORPUSCULAR HGB CONC 32.3 g/dl (32.0-36.5); MEAN CORPUSCULAR VOLUME 88.9 fl (80.0-96.0); PLATELET COUNT, AUTOMATED 238 10^3/uL (150-450); RED BLOOD COUNT 5.23 10^6/uL (4.30-6.10); WHITE BLOOD COUNT 5.8 10^3/uL (4.0-10.0)
[2024-03-30 18:32] LABS: THYROID STIMULATING HORMONE 25.291 uIU/ML (0.55-4.78)
[2024-03-30 18:33] LABS: ALBUMIN 3.3 G/DL (3.2-5.2); ALKALINE PHOSPHATASE 109 U/L (46-116); ALT/SGPT 28 U/L (7.0-40); AST/SGOT 28 U/L (<34); BILIRUBIN,TOTAL 0.8 MG/DL (0.3-1.2); BLOOD UREA NITROGEN 18 MG/DL (9-23); CALCIUM LEVEL 8.8 MG/DL (8.5-10.1); CARBON DIOXIDE LEVEL 26 MMOL/L (20-31); CHLORIDE LEVEL 105 MMOL/L (98-107); CHOLESTEROL LEVEL 178 MG/DL (<200); CHOLESTEROL RISK RATIO 4.81 (<5); CREATININE FOR GFR 0.88 MG/DL (0.70-1.30); GLOMERULAR FILTRATION RATE > 60.0 (>60); GLUCOSE, FASTING 117 MG/DL (60-100); LDL CHOLESTEROL 104.4 MG/DL (<100); POTASSIUM SERUM 5.2 MMOL/L (3.5-5.1); SODIUM LEVEL 139 MMOL/L (136-145); TRIGLYCERIDES LEVEL 183 MG/DL (<150)
[2024-03-30 18:47] LABS: HEMOGLOBIN A1c 5.8 % (4.0-6.0)
== END ==
LOC: M LAB REF 16:38
PROVIDERS: ATTEND Physician Assistant
DX: E78.5 Hyperlipidemia, unspecified (principal)

== ENCOUNTER → 2024-05-06 | Outpatient (REF) | payer MEDICAID ==
[2024-05-06 17:26] LABS: POTASSIUM SERUM 4.5 MMOL/L (3.5-5.1)
[2024-05-06 17:37] LABS: THYROID STIMULATING HORMONE 5.154 uIU/ML (0.55-4.78)
== END ==
LOC: M LAB REF 16:29
PROVIDERS: ATTEND Nurse Practitioner Family
DX: E03.9 Hypothyroidism, unspecified (principal); E87.5 Hyperkalemia

== ENCOUNTER → 2024-06-12 | Outpatient (CLI) | payer MEDICAID | LOC: M LAB 12:43 | PROVIDERS: ATTEND Nurse Practitioner Family | DX: E03.9 Hypothyroidism, unspecified (principal) ==

== ENCOUNTER → 2025-01-31 | Outpatient (CLI) | payer MEDICAID | LOC: M RAD 11:54 | PROVIDERS: ATTEND Physician Assistant | DX: R05.9 Cough, unspecified (principal) ==

== ENCOUNTER → 2025-03-01 | Outpatient (CLI) | payer MEDICAID | LOC: M RAD 10:07 | PROVIDERS: ATTEND Physician Assistant | DX: K59.00 Constipation, unspecified (principal); R19.00 Intra-abdominal and pelvic swelling, mass and lump, unspecified site ==